=== PATIENT | female | born 1940 ===

== ENCOUNTER 2016-10-12 22:51 | Emergency (ER) | payer MEDICARE, MEDICAID ==
[2016-10-12 22:52] VITALS: BMI 29.2
--- NOTE | 2016-10-12 23:06 | C.PDOC ---
History Of Present Illness Patient presents to the ER with a complaint of sharp, stabbing, RUQ pain since yesterday that worsened after having dinner. Patient states the pain is associated with nausea, vomiting, and some diarrhea. Patient is able to tolerate PO; denies fever or chills. Time Seen by Provider: 10/12/16 23:05 Chief Complaint (Nursing): Abdominal Pain History Per: Patient History/Exam Limitations: no limitations Onset/Duration Of Symptoms: Days Current Symptoms Are (Timing): Still Present Severity: Moderate Pain Scale Rating Of: 4 Location Of Pain/Discomfort: RUQ Radiation Of Pain To:: None Quality Of Discomfort: Sharp, Stabbing Associated Symptoms: Nausea, Vomiting, Diarrhea. denies: Fever, Chills Exacerbating Factors: None Alleviating Factors: None Recent travel outside of the [place]: No Abnormal Vaginal Bleeding: No Past Medical History Reviewed: Historical Data, Nursing Documentation, Vital Signs Vital Signs: Last Vital Signs Temp 98.7 F 10/12/16 23:05 Pulse 74 10/13/16 00:12 Resp 18 10/13/16 00:12 BP 118/53 L 10/13/16 00:12 Pulse Ox 97 10/13/16 00:12 - Medical History PMH: Arthritis, Asthma ("DUE TO ALLERGIES"-"NOT HOSPITAIZED IN MANY YEARS"), Diabetes, Fractures (RIGHT HAND-CASTED ONLY), Gall Bladder Disease, Hypercholesterolemia, Kidney Stones (NO FURTHER WITH PAIN-PT. BELIEVES PASSED ON OWN), Pneumonia, Chronic Kidney Disease Surgical History: Endoscopy - [facility] Procedures FLUOROSCOPY OF GALLBLADDER & BILE DUCT USING L OSM CONTRAST (02/01/16) RESECTION OF GALLBLADDER, PERCUTANEOUS ENDOSCOPIC APPROACH (02/01/16) Family History: States: No Known Family Hx - Social History Hx Tobacco Use: No Hx Alcohol Use: No Hx Substance Use: No - Immunization History Hx Tetanus Toxoid Vaccination: No Hx Influenza Vaccination: No Hx Pneumococcal Vaccination: Yes Review Of Systems Constitutional: Negative for: Fever, Chills Gastrointestinal: Positive for: Nausea, Vomiting, Abdominal Pain, Diarrhea Physical Exam - Physical Exam Appears: Non-toxic Skin: Warm, Dry Oral Mucosa: Moist Chest: No Tenderness, Other (CABG scar) Cardiovascular: Rhythm Regular, No Murmur Respiratory: No Rales, No Rhonchi, No Wheezing Gastrointestinal/Abdominal: Soft, Tenderness (RUQ) Neurological/Psych: Oriented x3 ED Course And Treatment - Laboratory Results Result Diagrams: 10/12/16 23:27 08 23:27 ECG: Interpreted By Me, Viewed By Me ECG Rhythm: Sinus Rhythm (69), Nonspecific Changes O2 Sat by Pulse Oximetry: 97 Pulse Ox Interpretation: Normal Progress Note: CT abd/pel and EKG ordered. Pepcid administered. Reevaluation Time: 01:52 Reassessment Condition: Improved Medical Decision Making Medical Decision Making: Upon provider reevaluation patient is feeling better, is medically stable, and requires no further treatment in the ED at this time. Patient will be discharged home with Rx for miralax and simethicone. Counseling was provided and all questions were answered regarding diagnosis and need for follow up with dr capone. There is agreement to discharge plan. Return if symptoms persist or worsen. Disposition Counseled Patient/Family Regarding: Studies Performed, Diagnosis, Need For Followup, Rx Given - Disposition Referrals: Danny Capone MD [Staff Provider] - Disposition: HOME/ ROUTINE Disposition Time: 23:06 Condition: FAIR Additional Instructions: Please return if symptoms recur Prescriptions: Polyethylene Glycol 3350 [Miralax] 17 gm PO DAILY #270 ml Simethicone 180 mg PO TID PRN #20 capsule PRN Reason: gas and bloating Instructions: Abdominal Pain (ED), Gas and Bloating (ED), Diverticulosis (ED) Forms: [facility] (Slovak) - Clinical Impression Clinical Impression: Abdominal pain, Constipation, Diverticulosis - Scribe Statement The provider has reviewed the documentation as recorded by the Kwameibdeniz Novoa All medical record entries made by the Kwameibdeniz were at my direction and personally dictated by me. I have reviewed the chart and agree that the record accurately reflects my personal performance of the history, physical exam, medical decision making, and the department course for this patient. I have also personally directed, reviewed, and agree with the discharge instructions and disposition.
[2016-10-12 23:32] LABS: BASO # 0.1 K/uL (0.0-0.2); BASO % 0.8 % (0.0-2.0); EOS # 0.3 K/uL (0.0-0.7); EOS % 4.5 % (0.0-4.0); HEMOGLOBIN 12.4 g/dL (11.0-16.0); LYMPH % 26.6 % (20.0-40.0); MEAN CELL VOLUME 88.7 fL (81.0-99.0); MEAN CORPUSCULAR HEMOGLOBIN 28.7 pg (27.0-31.0); MEAN CORPUSCULAR HGB CONC 32.4 g/dL (33.0-37.0); MEAN PLATELET VOLUME 8.4 fL (7.2-11.7); MONO # 0.6 K/uL (0.0-0.8); MONO % 8.2 % (0.0-10.0); NEUT # 4.6 K/uL (1.8-7.0); NEUT % 59.9 % (50.0-75.0); NRBC % 0.1 % (0.0-2.0); RBC 4.3 Mil/uL (3.80-5.20); RED CELL DISTRIBUTION WIDTH 13.8 % (11.5-14.5); WHITE BLOOD COUNT 7.7 K/uL (4.8-10.8)
[2016-10-12 23:34] LABS: URINE BILIRUBIN NEGATIVE (NEGATIVE); URINE BLOOD NEGATIVE (NEGATIVE); URINE CLARITY Clear (Clear); URINE COLOR Colorless (YELLOW); URINE GLUCOSE (UA) NORMAL (Normal); URINE LEUKOCYTE ESTERASE NEG Leu/uL (Negative); URINE NITRATE NEGATIVE (NEGATIVE); URINE PROTEIN NEGATIVE (NEGATIVE); URINE UROBILINOGEN NORMAL mg/dL (0.2-1.0)
[2016-10-12 23:40] LABS: ALBUMIN 4.3 g/dL (3.5-5.0)
[2016-10-12 23:43] LABS: ALB/GLOB RATIO 1.2 (1.0-2.1); ALT/SGPT 41 U/L (9-52); AST/SGOT 48 U/L (14-36); BLOOD UREA NITROGEN 23 mg/dL (7-17); GFR AFRICAN-AMERICAN > 60; GFR NON-AFRICAN AMERICAN 54
[2016-10-12 23:44] LABS: CALCIUM 8.9 mg/dl (8.6-10.4); LIPASE 205 U/L (23-300)
[2016-10-12 23:55] VITALS: BP 118/53
[2016-10-13] LABS: INR 0.9; PROTHROMBIN TIME 10.2 SECONDS (9.7-12.2)
[2016-10-13] MEDS ORDERED: Iodixanol 320 MG/ML 100 ML BOTTLE IV ONE (00:02)
--- NOTE | 2016-10-13 01:36 | CT ---
EXAM: CT Abdomen and Pelvis With Intravenous Contrast CLINICAL HISTORY: 76 years old, female; Pain; Abdominal pain; Prior surgery; Surgery type: Open heart and valve replacement; Additional info: Ruq pain, HX of cholecystectomy TECHNIQUE: Axial computed tomography images of the abdomen and pelvis with intravenous contrast. This CT exam was performed using one or more of the following dose reduction techniques: automated exposure control, adjustment of the mA and/or kV according to patient size, and/or use of iterative reconstruction technique. Coronal and sagittal reformatted images were created and reviewed. CONTRAST: 100 mL of [id number] administered intravenously. COMPARISON: No relevant prior studies available. FINDINGS: Limitations: Motion artifact - mild to moderate. Lower thorax: Small hiatal hernia. Mild cardiomegaly. Valve replacement. Coronary artery calcifications. ABDOMEN: Liver: Unremarkable. No mass. Gallbladder and bile ducts: Cholecystectomy. No ductal dilation. Pancreas: No ductal dilation. No mass. Spleen: No splenomegaly. Adrenals: No mass. Kidneys and ureters: Atrophic RIGHT kidney. No hydronephrosis. Stomach and bowel: Scattered diverticula within colon. No associated inflammatory stranding. No definite mural thickening. No obstruction. Appendix: Normal caliber. No inflammation. PELVIS: Bladder: Unremarkable. Reproductive: Unremarkable as visualized. ABDOMEN and PELVIS: Intraperitoneal space: No significant fluid collection. No free air. Bones/joints: Median sternotomy. Degenerative changes and scoliosis of spine. No acute fracture. Soft tissues: Small umbilical hernia containing sidewall of bowel. No obstruction. Vasculature: Moderate atherosclerotic disease. No aneurysm. Lymph nodes: No pathologically enlarged lymph nodes. IMPRESSION: 1. Diverticulosis without definite CT evidence of diverticulitis. 2. Incidental/non-acute findings are described above.
[2016-10-13 02:02] VITALS: PULSE 73; RESP 20; TEMP 98.8; O2SAT 100
--- NOTE | 2016-10-13 10:55 | CARD ---
APPROVED REPORT EKG Measurement Heart [id number] MD [id number] <Conclusion> Normal sinus rhythm Nonspecific T wave abnormality Abnormal ECG
== END 2016-10-13 02:20 | disposition home or self-care (01) ==
LOC: C.ER 22:51
DX: K57.90 Diverticulosis of intestine, part unspecified, without perforation or abscess without bleeding (principal); K59.00 Constipation, unspecified
CPT/HCPCS: 74177; 80053; 81001; 83690; 85025; 85610; 85730; 93005; 96374; 99285; Q9967

== ENCOUNTER 2016-11-28 12:28 | Inpatient (IN) | payer MEDICARE, MEDICAID ==
[2016-11-28 12:29] VITALS: BMI 29.2
[2016-11-28 15:54] LABS: BASO % 0.3 % (0.0-2.0); EOS # 0.1 K/uL (0.0-0.7); EOS % 0.6 % (0.0-4.0); HEMATOCRIT 41.1 % (34.0-47.0); LYMPH # 1.9 K/uL (1.0-4.3); LYMPH % 16.7 % (20.0-40.0); MEAN CELL VOLUME 88.8 fL (81.0-99.0); MEAN CORPUSCULAR HEMOGLOBIN 29.2 pg (27.0-31.0); MEAN CORPUSCULAR HGB CONC 32.8 g/dL (33.0-37.0); MEAN PLATELET VOLUME 8.2 fL (7.2-11.7); MONO # 0.5 K/uL (0.0-0.8); MONO % 4.8 % (0.0-10.0); WHITE BLOOD COUNT 11.4 K/uL (4.8-10.8)
[2016-11-28 16:10] LABS: CHLORIDE 101 mmol/L (98-107); POTASSIUM 3.8 mmol/L (3.6-5.2); SODIUM 141 mmol/L (132-148)
[2016-11-28 16:12] LABS: ALB/GLOB RATIO 1.3 (1.0-2.1); ALKALINE PHOSPHATASE 79 U/L (38-126); AST/SGOT 44 U/L (14-36); BILIRUBIN,TOTAL 1.3 mg/dL (0.2-1.3); BLOOD UREA NITROGEN 17 mg/dL (7-17); CARBON DIOXIDE 27 mmol/L (22-30); GFR AFRICAN-AMERICAN > 60; RBC URINE < 1 /hpf (0-3); TOTAL PROTEIN 8.5 g/dL (6.3-8.3); URINE BACTERIA RARE (<OCC); URINE BILIRUBIN NEGATIVE (NEGATIVE); URINE BLOOD NEGATIVE (NEGATIVE); URINE COLOR Yellow (YELLOW); URINE GLUCOSE (UA) NORMAL (Normal); URINE KETONE TRACE mg/dL (NEGATIVE); URINE LEUKOCYTE ESTERASE NEG Leu/uL (Negative); URINE PROTEIN NEGATIVE (NEGATIVE); URINE UROBILINOGEN NORMAL mg/dL (0.2-1.0); WBC URINE < 1 /hpf (0-5)
[2016-11-28 16:13] LABS: ALT/SGPT 36 U/L (9-52); GLUCOSE,RANDOM 110 mg/dL (65-105)
[2016-11-28] MEDS ORDERED: Iodixanol 320 MG/ML 100 ML BOTTLE IV ONE (17:51)
--- NOTE | 2016-11-28 18:28 | C.PDOC ---
History Of Present Illness <Alexa Sanders - Last Filed: 11/28/16 19:12> <Tony Davis - Last Filed: 11/28/16 20:50> 76 y/o female presents to ED for evaluation of right sided abdominal pain associated with diarrhea since yesterday. (+)nausea, (+)vomiting. Pt notes having similar symptoms last month and was treated with Miralax. Pt notes that she continued taking the Miralax daily even day with the diarrhea. Otherwise, denies any back pain, urinary symptoms, fever, or chills. (Alexa Sanders) History Per: Patient History/Exam Limitations: no limitations Onset/Duration Of Symptoms: Days (1) Current Symptoms Are (Timing): Still Present Location Of Pain/Discomfort: Other (right sided) Radiation Of Pain To:: None Quality Of Discomfort: "Pain" Associated Symptoms: Nausea, Vomiting, Diarrhea. denies: Loss Of Appetite, Back Pain, Chest Pain, Constipation, Urinary Symptoms Exacerbating Factors: None Alleviating Factors: None Last Bowel Movement: Today Recent travel outside of the [place]: No Additional History Per: Patient Abnormal Vaginal Bleeding: No <Alexa Sanders - Last Filed: 11/28/16 19:12> <Tony Davis - Last Filed: 11/28/16 20:50> Time Seen by Provider: 11/28/16 15:12 Chief Complaint (Nursing): Abdominal Pain Past Medical History Reviewed: Historical Data, Nursing Documentation, Vital Signs - Medical History PMH: Arthritis, Asthma ("DUE TO ALLERGIES"-"NOT HOSPITAIZED IN MANY YEARS"), Diabetes, Fractures (RIGHT HAND-CASTED ONLY), Gall Bladder Disease, Hypercholesterolemia, Kidney Stones (NO FURTHER WITH PAIN-PT. BELIEVES PASSED ON OWN), Pneumonia, Chronic Kidney Disease Surgical History: Cholecystectomy, Endoscopy Family History: States: Unknown Family Hx - Social History Hx Tobacco Use: No Hx Alcohol Use: No Hx Substance Use: No - Immunization History Hx Tetanus Toxoid Vaccination: No Hx Influenza Vaccination: No Hx Pneumococcal Vaccination: Yes <Alexa Sanders - Last Filed: 11/28/16 19:12> Review Of Systems Except As Marked, All Systems Reviewed And Found Negative. Constitutional: Negative for: Fever, Chills Cardiovascular: Negative for: Chest Pain, Palpitations Respiratory: Negative for: Shortness of Breath Gastrointestinal: Positive for: Nausea, Vomiting, Abdominal Pain, Diarrhea. Negative for: Constipation, Melena, Hematochezia, Hematemesis Genitourinary: Negative for: Dysuria, Frequency, Incontinence, Hematuria Musculoskeletal: Negative for: Back Pain Skin: Negative for: Rash, Bruising <Alexa Sanders - Last Filed: 11/28/16 19:12> Physical Exam - Physical Exam Appears: Non-toxic, No Acute Distress Skin: Normal Color, Warm, Dry, No Rash Head: Atraumatic, Normacephalic Eye(s): bilateral: Normal Inspection, EOMI Nose: Normal Oral Mucosa: Moist Neck: Normal ROM, Supple Chest: Symmetrical Cardiovascular: Rhythm Regular, No Murmur Respiratory: Normal Breath Sounds, No Rales, No Rhonchi, No Wheezing Gastrointestinal/Abdominal: Soft, Tenderness (right sided tenderness), No Guarding, No Rebound Back: No CVA Tenderness Extremity: Normal ROM, No Pedal Edema Neurological/Psych: Oriented x3, Normal Speech <Alexa Sanders - Last Filed: 11/28/16 19:12> ED Course And Treatment - Laboratory Results Result Diagrams: 11/28/16 15:49 11/28/16 15:49 O2 Sat by Pulse Oximetry: 99 (on RA) Pulse Ox Interpretation: Normal Progress Note: Blood work, UA, Abd & pelvis CT ordered and reviewed. Pt was given Tramadol. Pt endorsed to Dr Davis pending CT results and re-evaluation. <Alexa Sanders - Last Filed: 11/28/16 19:12> - Laboratory Results Result Diagrams: 11/28/16 15:49 11/28/16 15:49 <Tony Davis - Last Filed: 11/28/16 20:50> Disposition - Disposition Disposition Time: 19:13 <Alexa Sanders - Last Filed: 11/28/16 19:12> Discussed With : Danny Banerjee Comment: accepted the pt on his service and took over the care at 8:50 PM <Tony Davis - Last Filed: 11/28/16 20:50> - Disposition Condition: FAIR Forms: [facility] (Belarusian) - Clinical Impression Clinical Impression: Abdominal pain, Ileus - PA / DE ALCHOLIZER / Resident Statement MD/DO has reviewed & agrees with the documentation as recorded. - Scribe Statement The provider has reviewed the documentation as recorded by the Scribe <Alexa Sanders - Last Filed: 11/28/16 19:12> <Tony Davis - Last Filed: 11/28/16 20:50> - Scribe Statement Carlota Brady All medical record entries made by the Scribe were at my direction and personally dictated by me. I have reviewed the chart and agree that the record accurately reflects my personal performance of the history, physical exam, medical decision making, and the department course for this patient. I have also personally directed, reviewed, and agree with the discharge instructions and disposition. (Alexa Sanders) Decision To Admit <Alexa Sanders - Last Filed: 11/28/16 19:12> - Pt Status Changed To: Hospital Disposition Of: Inpatient - Admit Certification Admit to Inpatient:: After my assessment, the patient will require hospitalization for at least two midnights. This is because of the severity of symptoms shown, intensity of services needed, and/or the medical risk in this patient being treated as an outpatient. - InPatient: Physician Admission Certification:: After my assessment, the patient will require hospitalization for at least two midnights. This is because of the severity of symptoms shown, intensity of services needed, and/or the medical risk in this patient being treated as an outpatient. - . Bed Request Type: Regular Admitting Physician: Danny Banerjee <Tony Davis - Last Filed: 11/28/16 20:50> - . Patient Diagnosis: Abdominal pain, Ileus
--- NOTE | 2016-11-28 20:21 | CT ---
EXAM: CT Abdomen and Pelvis With Intravenous Contrast EXAM DATE/TIME: 11/28/2016 4:03 PM CLINICAL HISTORY: 76 years old, female; Condition or disease; Intestinal condition; Other: Rectal bleed; Additional info: Pain TECHNIQUE: Axial computed tomography images of the abdomen and pelvis with intravenous contrast. All CT scans at this facility use one or more dose reduction techniques, viz.: automated exposure control; ma/kV adjustment per patient size (including targeted exams where dose is matched to indication; i.e. head); or iterative reconstruction technique. Coronal and sagittal reformatted images were created and reviewed. CONTRAST: 100 mL of visipaque 320 administered intravenously. COMPARISON: Prior images are not available for review. FINDINGS: Lower thorax: Heart size is normal. There are coronary artery calcifications There is a prosthetic aortic valve. There is fluid in the pericardial recesses. There is a hiatal hernia. ABDOMEN: Liver: unremarkable Gallbladder and bile ducts: Gallbladder is surgically absent. Common duct is prominent. There is mild intrahepatic biliary ductal dilatation Pancreas: Pancreas is mildly atrophic. Spleen: unremarkable Adrenals: There is adrenal thickening. Kidneys and ureters: Right kidney is atrophic, 5.7 cm in length. Left kidney is normal in size, 11.7 cm in length.There is no pelvocaliectasis or ureterectasis. Stomach and bowel: Stomach is incompletely distended. Rotation is normal. Small bowel is mildly distended with fluid and air. There is no obstruction. There is fluid throughout the small bowel. Terminal ileum is distended with fluid.Appendix is unremarkable. There is a cecal diverticulum. Colon is incompletely distended which limits evaluation. Streak limits evaluation of the colon. There is mild enhancement of the ascending colon wall. There is scattered hyperdense material in the distal transverse colon, descending colon and multiple diverticula. Appendix: See above. PELVIS: Bladder: unremarkable Reproductive: Uterus is atrophic. The adnexa are unremarkable. ABDOMEN and PELVIS: Intraperitoneal space: There is no free air or free fluid. Bones/joints: There are postsurgical changes of median sternotomy. Bony structures are osteopenic.There are degenerative changes in the osseus structures. There is a convex right lumbar scoliosis. Soft tissues: There is a nonobstructing umbilical hernia containing small bowel. Vasculature: Aorta is mildly tortuous. There is atherosclerotic calcification in the aorta. There are atherosclerotic calcifications at the origins of both renal arteries. Lymph nodes: There is no pathologic adenopathy. IMPRESSION: Ileus, no obstruction; scattered foci of hyperdense material in the colon, ingested material versus blood; possible ascending colon colitis; diverticulosis without CT findings of diverticulitis dilated ducts status post cholecystectomy; marked right renal atrophy; atherosclerotic disease Additional findings as described above.
[2016-11-28] MEDS ORDERED: metroNIDAZOLE IV 500 mg/100 ml 500 MG/100 ML BAG ONE (20:57)
[2016-11-28] MEDS: metroNIDAZOLE IV 500 mg/100 ml 500 MG/100 ML BAG IVPB SCH (20:59)
[2016-11-28] MEDS ORDERED: SIMETHICONE 180 MG PO PRN (21:02)
[2016-11-28] MEDS ORDERED: Albuterol-Ipratrop 3 mg / 0.5 (3 ml) UD INH PRN (21:12)
[2016-11-28] MEDS: Dextrose 5%/0.45% NS 1,000 ML IV SCH (21:33)
--- NOTE | 2016-11-29 00:02 | CP.PCM.CON ---
History of Present Illness - History of Present Illness History of Present Illness: General Surgery Consult note for Dr. Kelley Consulted for: abdominal pain, possible ileus Patient is a 76F with PMH including DM, aortic valve replacement, coronary bypass, and cholecystectomy who presents with abdominal pain associated with nausea and vomiting for 2 days. She began to have more severe symptoms on yesterday morning, with diffuse crampy abdominal pain that persisted throughout the day. This AM the pain was worse and increased throughout the day, and patient had an episode of nausea and NB/NB vomiting after trying to eat. Patient took miralax this AM. Last BM was yesterday afternoon with small amount stool after strauining, normal color and consistency. At time of interview, patient reports pain is persistent but improved with medication, and denies any naseua. Patient also denies diarrhea, melena, hematochezia, dysuria, hematuria, back pain, fevers, chills, or any other symptoms. Patient reports a chronic abdominal hernia that is soft, non-tender, and reducible. Patient states that her grandson, who lives with her, has similar symptoms. Patient states that she has had occasional episodes of abdominal pain in the morning for a long time. Patient presented to the hospital 3 weeks ago with RLQ pain and was diagnoses with diverticulosis and instructed to take miralax daily. CT scan revealed mildly dilated small bowel with distended, fluid filled terminal ileum, no sign of obstruction PMH: CAD, HLD, DM, nephrolithiasis, asthma PSH: cholecystectomy, aortic valve replacement, coronary arter bypass All: bactrim, asa, PCN Social: denies tobacco, alcohol, and illicit drugs Review of Systems - Review of Systems All systems: reviewed and no additional remarkable complaints except (as per HPI ) - Constitutional Constitutional: absent: Chills, Fever, Weight Loss - Cardiovascular Cardiovascular: absent: Chest Pain, Chest Pain at Rest, Dyspnea - Respiratory Respiratory: absent: Cough, Dyspnea, Dyspnea on Exertion - Gastrointestinal Gastrointestinal: As Per HPI - Genitourinary Genitourinary: As Per HPI - Musculoskeletal Musculoskeletal: Arthralgias, Back Pain, Numbness (BL hands). absent: Tingling - Neurological Neurological: Numbness (BL hands). absent: Tingling Past Patient History - Infectious Disease Hx of Infectious Diseases: None - Past Medical History & Family History Past Medical History?: Yes - Past Social History Smoking Status: Never Smoked Alcohol: None Drugs: Denies Home Situation {Lives}: With Family - CARDIAC Hx Cardiac Disorders: Yes Hx Hypercholesterolemia: Yes Hx Hypertension: No Other/Comment: CAD, aortic valve replacement, CABG - PULMONARY Hx Asthma: Yes ("DUE TO ALLERGIES"-"NOT HOSPITAIZED IN MANY YEARS") Hx Pneumonia: Yes - NEUROLOGICAL Hx Neurological Disorder: Yes Hx Dizziness: Yes - HEENT Hx HEENT Problems: Yes Hx Cataracts: Yes Other/Comment: WEAR EYEGLASSES FOR POOR VISION - RENAL Hx Chronic Kidney Disease: Yes Hx Kidney Stones: Yes - ENDOCRINE/METABOLIC Hx Endocrine Disorders: Yes Hx Diabetes Mellitus Type 2: Yes - INTEGUMENTARY Hx Dermatological Problems: No - MUSCULOSKELETAL/RHEUMATOLOGICAL Hx Arthritis: Yes Hx Back Pain: Yes Hx Fractures: Yes (RIGHT HAND-CASTED ONLY) Hx Osteoarthritis: Yes - GASTROINTESTINAL Hx Gall Bladder Disease: Yes Other/Comment: diverticulosis - GENITOURINARY/GYNECOLOGICAL Hx Genitourinary Disorders: No - PSYCHIATRIC Hx Substance Use: No - SURGICAL HISTORY Hx Surgeries: Yes Hx Cholecystectomy: Yes Other/Comment: CABG, aortic valve replacement, arthroscopy right knee - ANESTHESIA Hx Anesthesia: Yes Hx Anesthesia Reactions: No Hx Malignant Hyperthermia: No Meds Allergies/Adverse Reactions: Allergies Allergy/AdvReac Type Severity Reaction Status Date / Time Penicillins Allergy Severe ANAPHYLAXIS Verified 11/28/16 12:49 aspirin Allergy Intermediate ITCHING Verified 11/28/16 12:49 sulfamethoxazole Allergy Intermediate RASH Verified 11/28/16 12:49 [From Bactrim] trimethoprim [From Bactrim] Allergy Intermediate RASH Verified 11/28/16 12:49 - Medications Medications: Current Medications Albuterol/Ipratropium (Duoneb 3 Mg/0.5 Mg (3 Ml) Ud) 3 ml INH RQ6 PRN PRN Reason: Shortness of Breath Enoxaparin Sodium (Lovenox) 40 mg SC DAILY [facility] Folic Acid (Folic Acid) 1 mg PO DAILY [facility] Home Med (Cholecalciferol (Vitamin D3) [Vitamin D3]) 50,000 unit PO QWK [facility] Home Med (Levocetirizine Dihydrochloride [Levocetirizine Dihydrochloride]) 5 mg PO DAILY [facility] Home Med (Simethicone [Simethicone]) 180 mg PO TID PRN PRN Reason: gas and bloating Metronidazole (Flagyl) 500 mg in 100 mls @ 100 mls/hr IVPB STAT [facility] Last Admin: 11/28/16 20:59 Dose: 100 mls/hr Metronidazole (Flagyl) 500 mg in 100 mls @ 100 mls/hr IVPB Q8 [facility] Dextrose/Sodium Chloride (Dextrose 5%/0.45% Ns 1000 Ml) 1,000 mls @ 60 mls/hr IV .[id number] [facility] Last Admin: 11/28/16 21:33 Dose: 60 mls/hr Meclizine HCl (Antivert) 12.5 mg PO DAILY [facility] Metoclopramide HCl (Reglan) 10 mg IVP Q6 PRN PRN Reason: Nausea/Vomiting Sitagliptin Phosphate (Januvia) 100 mg PO DAILY [facility] Physical Exam - Constitutional Appears: Non-toxic, No Acute Distress - Head Exam Head Exam: ATRAUMATIC, NORMOCEPHALIC - Eye Exam Eye Exam: Normal appearance. absent: Conjunctival injection, Scleral icterus - ENT Exam ENT Exam: Mucous Membranes Moist, Normal Oropharynx - Respiratory Exam Respiratory Exam: NORMAL BREATHING PATTERN. absent: Accessory Muscle Use, Respiratory Distress - Cardiovascular Exam Cardiovascular Exam: RRR - GI/Abdominal Exam GI & Abdominal Exam: Distended (mild), Hernia (ventral hernia, reducible, non- tender), Soft, Tenderness (LLQ and RUQ). absent: Firm, Rebound - Extremities Exam Extremities exam: Positive for: pedal pulses present. Negative for: calf tenderness, pedal edema - Back Exam Back exam: NORMAL INSPECTION. absent: CVA tenderness (L), CVA tenderness (R) - Neurological Exam Neurological exam: Alert, Oriented x3 - Psychiatric Exam Psychiatric exam: Normal Affect, Normal Mood - Skin Skin Exam: Dry, Intact, Normal Color, Warm Results - Vital Signs Recent Vital Signs: Last Vital Signs Temp 97.8 F 11/28/16 22:52 Pulse 63 11/28/16 22:52 Resp 18 11/28/16 22:52 BP 155/75 H 11/28/16 22:52 Pulse Ox 98 11/28/16 22:52 - Labs Result Diagrams: 11/28/16 15:49 11/28/16 15:49 Assessment & Plan - Assessment and Plan (Free Text) Assessment: 76F with diffuse abdominal pain, possible ileus possible gastroenteritis Plan: - No indication for surgical intervention at this time - NPO - IVF - IV abx - NGT is not indicated at this time due to resolution of nausea and vomiting and benign abdominal exam. Insert NGT if nausea and vomiting return - Serial abdominal exam - PRN nausea and pain medication Thank you for this consult Further recs per Dr. Warren Be, PGY2
[2016-11-29] MEDS: metroNIDAZOLE IV 500 mg/100 ml 500 MG/100 ML BAG IVPB SCH ×3 (05:00→21:46)
[2016-11-29] MEDS ORDERED: Simethicone 80 mg Chewtab PO PRN (07:59)
[2016-11-29] MEDS ORDERED: Home Med 1 UNIT (Levocetirizine Dihydrochloride [Levocetirizine Dihydrochloride] 5 MG) PO SCH (10:00)
[2016-11-29] MEDS ORDERED: Home Med 1 UNIT (Polyethylene Glycol 3350 [Miralax] 17 GM) PO SCH (10:00)
[2016-11-29] MEDS ORDERED: Aluminum Hydroxide/Magnesium Hydroxide Susp (30 mL) PO ONE ×2 (10:06→11:42)
[2016-11-29] MEDS: Enoxaparin 40 mg Syringe SC SCH (10:37)
[2016-11-29 12:29] LABS: BASO % 0.5 % (0.0-2.0); EOS # 0.1 K/uL (0.0-0.7); EOS % 1.9 % (0.0-4.0); HEMATOCRIT 40.5 % (34.0-47.0); LYMPH % 29.5 % (20.0-40.0); MEAN CELL VOLUME 89.1 fL (81.0-99.0); MEAN CORPUSCULAR HEMOGLOBIN 29.6 pg (27.0-31.0); MEAN CORPUSCULAR HGB CONC 33.2 g/dL (33.0-37.0); MEAN PLATELET VOLUME 8.4 fL (7.2-11.7); MONO # 0.5 K/uL (0.0-0.8); MONO % 7.8 % (0.0-10.0); RED CELL DISTRIBUTION WIDTH 14.3 % (11.5-14.5); WHITE BLOOD COUNT 6.9 K/uL (4.8-10.8)
[2016-11-29 12:43] LABS: POTASSIUM 4.3 mmol/L (3.6-5.2)
[2016-11-29 13:18] LABS: CARCINOEMBRYONIC ANTIGEN 2.6 ng/mL (0-3.0)
[2016-11-29 13:21] LABS: CA 19-9 20.8 U/mL (0-37)
[2016-11-29] MEDS: Dextrose 5%/0.45% NS 1,000 ML IV SCH (13:47)
[2016-11-29] MEDS: Belladonna-Phenobarbital PO SCH ×2 (13:47→17:54)
--- NOTE | 2016-11-29 22:35 | CP.PCM.HP ---
History of Present Illness - History of Present Illness History of Present Illness: 76 year old female reports to [facility] ER with severe abdomenal pain for the past 10 hours.Patient isunder treatment for coronary artery disease and valvular insufficiency. She also suffers from bronical asthma and degenerative joint disease. Present on Admission - Present on Admission Any Indicators Present on Admission: No History of DVT/PE: No History of Uncontrolled Diabetes: No Urinary Catheter: No Decubitus Ulcer Present: No History Surgical Site Infection Following: None Review of Systems - Constitutional Constitutional: Weakness - EENT Eyes: Itchy Eyes Ears: Dizziness Nose/Mouth/Throat: Sinus Pain - Cardiovascular Cardiovascular: Dyspnea on Exertion - Respiratory Respiratory: Wheezing - Gastrointestinal Gastrointestinal: Constipation - Genitourinary Genitourinary: Urinary Frequency - Reproductive: Female Reproductive:Female: Post Menopausal - Musculoskeletal Musculoskeletal: Arthralgias - Integumentary Integumentary: Dry Skin Past Patient History - Infectious Disease Hx of Infectious Diseases: None - Tetanus Immunizations Tetanus Immunization: Up to Date - Past Medical History & Family History Past Medical History?: Yes - Past Social History Smoking Status: Unknown If Ever Smoked Chewing Tobacco Use: No Cigar Use: No Alcohol: None Drugs: Denies Home Situation {Lives}: Alone - CARDIAC Hx Cardiac Disorders: Yes Hx Hypercholesterolemia: Yes - PULMONARY Hx Respiratory Disorders: Yes Hx Asthma: Yes ("DUE TO ALLERGIES"-"NOT HOSPITAIZED IN MANY YEARS") Hx Pneumonia: Yes - NEUROLOGICAL Hx Neurological Disorder: Yes Hx Dizziness: Yes - HEENT Hx HEENT Problems: Yes Hx Cataracts: Yes Other/Comment: WEAR EYEGLASSES FOR POOR VISION - RENAL Hx Chronic Kidney Disease: Yes Hx Kidney Stones: Yes - ENDOCRINE/METABOLIC Hx Diabetes Mellitus Type 2: Yes - HEMATOLOGICAL/ONCOLOGICAL Hx Blood Disorders: No - INTEGUMENTARY Hx Dermatological Problems: No - MUSCULOSKELETAL/RHEUMATOLOGICAL Hx Arthritis: Yes (BACK ; R HAND FX) - GASTROINTESTINAL Hx Gastrointestinal Disorders: Yes Hx Gall Bladder Disease: Yes Other/Comment: diverticulosis - GENITOURINARY/GYNECOLOGICAL Hx Genitourinary Disorders: No - PSYCHIATRIC Hx Psychophysiologic Disorder: No Hx Substance Use: No - SURGICAL HISTORY Hx Surgeries: Yes Hx Cholecystectomy: Yes Other/Comment: CABG, aortic valve replacement, arthroscopy right knee - ANESTHESIA Hx Anesthesia: Yes Hx Anesthesia Reactions: No Hx Malignant Hyperthermia: No Meds Allergies/Adverse Reactions: Allergies Allergy/AdvReac Type Severity Reaction Status Date / Time Penicillins Allergy Severe ANAPHYLAXIS Verified 11/28/16 12:49 aspirin Allergy Intermediate ITCHING Verified 11/28/16 12:49 sulfamethoxazole Allergy Intermediate RASH Verified 11/28/16 12:49 [From Bactrim] trimethoprim [From Bactrim] Allergy Intermediate RASH Verified 11/28/16 12:49 Physical Exam - Constitutional Appears: No Acute Distress - Head Exam Head Exam: NORMAL INSPECTION - Eye Exam Eye Exam: Normal appearance Pupil Exam: NORMAL ACCOMODATION - ENT Exam ENT Exam: Normal Exam - Neck Exam Neck exam: Positive for: Normal Inspection - Cardiovascular Exam Cardiovascular Exam: Systolic Murmur - GI/Abdominal Exam GI & Abdominal Exam: Hyperactive Bowel Sounds - Rectal Exam Rectal Exam: Deferred - Exam External exam: NORMAL EXTERNAL EXAM - Extremities Exam Extremities exam: Positive for: normal inspection - Back Exam Back exam: NORMAL INSPECTION - Psychiatric Exam Psychiatric exam: Normal Affect Results - Vital Signs Recent Vital Signs: Last Vital Signs Temp 98.4 F 11/29/16 15:00 Pulse 65 11/29/16 15:00 Resp 20 11/29/16 15:00 BP 176/69 H 11/29/16 15:00 Pulse Ox 97 11/29/16 15:00 - Labs Result Diagrams: 11/29/16 12:17 11/29/16 12:17 Labs: Laboratory Results - last 24 hr 11/29/16 11/29/16 11/29/16 07:53 11:15 12:17 WBC 6.9 RBC 4.54 Hgb 13.4 Hct 40.5 MCV 89.1 MCH 29.6 MCHC 33.2 RDW 14.3 Plt Count 208 MPV 8.4 Neut % (Auto) 60.3 Lymph % (Auto) 29.5 Crook % (Auto) 7.8 Eos % (Auto) 1.9 Baso % (Auto) 0.5 Neut # 4.1 Lymph # 2.0 Crook # 0.5 Eos # 0.1 Baso # 0.0 PT INR APTT Sodium Potassium Chloride Carbon Dioxide BUN POC Glucose (mg/dL) 97 206 H Triglycerides Cholesterol LDL Cholesterol Direct HDL Cholesterol Amylase Carcinoembryonic Ag CA 19-9 Antigen CA 125 Antigen 11/29/16 11/29/16 11/29/16 12:17 12:17 17:01 WBC RBC Hgb Hct MCV MCH MCHC RDW Plt Count MPV Neut % (Auto) Lymph % (Auto) Crook % (Auto) Eos % (Auto) Baso % (Auto) Neut # Lymph # Crook # Eos # Baso # PT 11.7 INR 1.0 APTT 35 H Sodium 137 Potassium 4.3 Chloride 100 Carbon Dioxide 27 BUN 13 POC Glucose (mg/dL) 89 Triglycerides 43 D Cholesterol 115 LDL Cholesterol Direct 47 HDL Cholesterol 57 Amylase 104 Carcinoembryonic Ag 2.6 CA 19-9 Antigen 20.8 CA 125 Antigen 7.2 11/29/16 21:26 WBC RBC Hgb Hct MCV MCH MCHC RDW Plt Count MPV Neut % (Auto) Lymph % (Auto) Crook % (Auto) Eos % (Auto) Baso % (Auto) Neut # Lymph # Crook # Eos # Baso # PT INR APTT Sodium Potassium Chloride Carbon Dioxide BUN POC Glucose (mg/dL) 115 H Triglycerides Cholesterol LDL Cholesterol Direct HDL Cholesterol Amylase Carcinoembryonic Ag CA 19-9 Antigen CA 125 Antigen Assessment & Plan (1) Abdominal pain Status: Acute (2) Ileus Status: Acute (3) Arteriosclerotic heart disease Status: Acute Priority: Medium (4) Asthma with bronchitis Status: Acute Priority: Low (5) Constipation Status: Acute (6) Degenerative joint disease Status: Acute Priority: Medium (7) Diverticulosis Status: Acute
[2016-11-30] MEDS: metroNIDAZOLE IV 500 mg/100 ml 500 MG/100 ML BAG IVPB SCH ×4 (05:47→20:57)
[2016-11-30] MEDS: Dextrose 5%/0.45% NS 1,000 ML IV SCH (08:02)
[2016-11-30] MEDS: Enoxaparin 40 mg Syringe SC SCH (10:25)
[2016-11-30] MEDS: Belladonna-Phenobarbital PO SCH ×3 (10:25→17:18)
[2016-11-30] MEDS ORDERED: Propofol 10 mg/ml Inj (20 ML) ONE (13:07)
[2016-11-30] MEDS ORDERED: Lidocaine Hydrochloride 5 ML INJ ONE (13:16)
[2016-11-30] MEDS: Lactated Ringer's 500 ML IV SCH ×2 (14:38→20:58)
[2016-11-30] MEDS ORDERED: Peg-Electrolyte Oral Soln 4L (Golytely) PO ONE (14:45)
[2016-11-30] MEDS ORDERED: Bisacodyl 5mg EC Tab PO ONE (17:00)
--- NOTE | 2016-11-30 22:45 | CP.PCM.PN ---
Subjective - Date & Time of Evaluation Date of Evaluation: 11/30/16 Time of Evaluation: 13:20 - Subjective Subjective: Patient denies any increae pain. She underwent endoscopy by Dr Townsend. Complete report pending. Objective - Vital Signs/Intake and Output Vital Signs (last 24 hours): Temp Pulse Resp BP Pulse Ox 98 F 88 20 134/92 H 97 11/30/16 16:00 11/30/16 16:00 11/30/16 16:00 11/30/16 16:00 11/30/16 16:00 Intake and Output: 11/30/16 12/01/16 18:59 06:59 Intake Total 260 Balance 260 - Medications Medications: Current Medications Albuterol/Ipratropium (Duoneb 3 Mg/0.5 Mg (3 Ml) Ud) 3 ml INH RQ6 PRN PRN Reason: Shortness of Breath Last Admin: 11/30/16 00:32 Dose: 3 ml Belladonna/Phenobarbital () 1 tab PO TID [facility] Last Admin: 11/30/16 17:18 Dose: 1 tab Enoxaparin Sodium (Lovenox) 40 mg SC DAILY [facility] Last Admin: 11/30/16 10:25 Dose: Not Given Ergocalciferol (Drisdol 50,000 Intl Units Cap) 1 cap PO QWK [facility] Famotidine (Pepcid) 20 mg IVP DAILY [facility] Last Admin: 11/30/16 10:32 Dose: 20 mg Folic Acid (Folic Acid) 1 mg PO DAILY [facility] Last Admin: 11/30/16 10:25 Dose: Not Given Metronidazole (Flagyl) 500 mg in 100 mls @ 100 mls/hr IVPB Q8H [facility] Last Admin: 11/30/16 20:57 Dose: 100 mls/hr Lactated Ringer's (Lactated Ringer's 500ml) 500 mls @ 75 mls/hr IV .Q6H40M [facility] Last Admin: 11/30/16 20:58 Dose: 75 mls/hr Loratadine (Claritin) 10 mg PO DAILY [facility] Last Admin: 11/30/16 10:25 Dose: Not Given Meclizine HCl (Antivert) 12.5 mg PO DAILY [facility] Last Admin: 11/30/16 14:26 Dose: 12.5 mg Metoclopramide HCl (Reglan) 10 mg IVP Q6 PRN PRN Reason: Nausea/Vomiting Simethicone (Mylicon Chew Tab) 80 mg PO TID PRN PRN Reason: gas and bloating Sitagliptin Phosphate (Januvia) 50 mg PO DAILY [facility] Last Admin: 11/30/16 10:25 Dose: Not Given - Labs Labs: 11/29/16 12:17 11/29/16 12:17 PT 11.7 SECONDS (9.7-12.2) 11/29/16 12:17 INR 1.0 11/29/16 12:17 APTT 35 SECONDS (21-34) H 11/29/16 12:17 - Constitutional Appears: No Acute Distress - Head Exam Head Exam: NORMAL INSPECTION - Eye Exam Eye Exam: Normal appearance Pupil Exam: NORMAL ACCOMODATION - ENT Exam ENT Exam: Normal Exam - Neck Exam Neck Exam: Normal Inspection - Respiratory Exam Respiratory Exam: Wheezes - Cardiovascular Exam Cardiovascular Exam: Murmur - GI/Abdominal Exam GI & Abdominal Exam: Hyperactive Bowel Sounds - Rectal Exam Rectal Exam: Deferred - Exam External exam: NORMAL EXTERNAL EXAM - Extremities Exam Extremities Exam: Joint Swelling - Back Exam Back Exam: NORMAL INSPECTION - Neurological Exam Neurological Exam: Oriented x3 - Psychiatric Exam Psychiatric exam: Depressed Assessment and Plan (1) Abdominal pain Status: Acute (2) Ileus Status: Acute (3) Arteriosclerotic heart disease Status: Acute (4) Asthma with bronchitis Status: Acute (5) Constipation Status: Acute (6) Degenerative joint disease Status: Acute (7) Diverticulosis Status: Acute
--- NOTE | 2016-11-30 23:39 | CON ---
DATE: 11/29/[address] Banerjee. I was called for GI consultation by the admitting medical team. The patient is seen and fully examined for GI consultation on 11/29/2016 as requested by the medical staff. The entire chart is reviewed including but not limited to the most recent lab and radiology study results, current and previous medication list, current and previous medical events, allergy to medication list as well as also available current and previous medical records. HISTORY OF PRESENT ILLNESS: This is a 76 years old female, was admitted to the hospital due to right-sided abdominal pain with mid epigastric pain and diarrhea with recurrent episodes of nausea and vomiting with persistent dyspepsia, but no active bleeding. denied any recent episodes of chest pain, palpitations, active bleeding, chills, or fever or complaint of significant shortness of breath. PAST MEDICAL HISTORY: Including but not limited to; bronchial asthma, diabetes mellitus, hyperlipidemia with renal stone as well as pneumonia, osteoarthritis as well as status post cholecystectomy. SOCIAL HISTORY: No known recent history of cigarette smoking or alcohol intake. FAMILY HISTORY: Noncontributory. CURRENT MEDICATIONS: Medication lists were reviewed. ALLERGIES TO MEDICATIONS: UNCLEAR. After being admitted to the hospital, the patient was found to have leukocytosis of 11.4 with increased blood glucose level of 110. Radiology study results at the current admission are indicative of positive left-sided diverticulosis versus acute colitis without evidence of diverticulitis radiologically. PHYSICAL EXAMINATION: GENERAL: A 76 years old female awake, alert, and oriented. Complaining of dyspepsia with nausea and had episodes of vomiting with diarrhea. VITAL SIGNS: The patient appears to be afebrile at the time she was seen by me with pulse of 78, respiratory rate 20 to 24. HEART: Positive S1 and S2. ABDOMEN: Soft with generalized tenderness and mild distention. No masses or organomegaly. No rebound tenderness or guarding. Bowel sounds are hyperactive. RECTAL: The patient refused. EXTREMITIES: Slight lower extremity edematous changes. No clubbing or cyanosis. NEUROLOGICAL: No neurological deficits, sensory or motor. IMPRESSION: 1. Re-exacerbation of peptic ulcer disease, to rule out gastric versus duodenal ulcers. 2. Rule out possible diabetic gastroparesis with episodes of nausea and vomiting. 3. Diarrhea, infectious versus mechanical, to rule out lower gastrointestinal tract occult malignancy. 4. Known history of, but not limited to diabetes mellitus, osteoarthritis. 5. Known history of hypertension, hyperlipidemia, renal stone. She also had pneumonia in the past. 6. Status post cholecystectomy and endoscopy years ago, according to the records. SUGGESTIONS: 1. Agree with your plan. 2. Proton-pump inhibitors. 3. Flagyl IV. 4. Antireflux measure. 5. Endoscopic evaluation of the GI tract to be kept in line. 6. Cancer markers. 7. I just . 8. Further recommendation to follow and Reglan IV to be kept in mind. Thank you for letting me participate in your patient's case management. We will follow up closely with you. Pat Mcintyre MD cc: Pat Mcintyre MD
[2016-12-01] MEDS: Lactated Ringer's 500 ML IV SCH ×2 (04:00→09:58)
[2016-12-01] MEDS: metroNIDAZOLE IV 500 mg/100 ml 500 MG/100 ML BAG IVPB SCH ×2 (04:34→14:46)
--- NOTE | 2016-12-01 08:19 | CP.PCM.CON ---
History of Present Illness - History of Present Illness History of Present Illness: 76 yo lady hospitalized on 11/28/2016 for abdominal pain. A CT scan of the abdomen revealed ileus and no sign of intestinal obstruction. She underwent an EGD yesterday which revealed an acute gastritis. A colonoscopy is scheduled for today. Known to have an osteoathritis, a bronchial asthma, a NIDDM, a CAD, a HPTN, she denies any recent chest pain, SOB, palpitation. She underwent an AVR and CAGBx1 at [facility] by [place] Jacinto and is followed regularly by her wet process technician, Dr Roberts. An ECG done on 10/12/2016 was normal. Review of Systems - Gastrointestinal Gastrointestinal: Abdominal Pain, Cramping Past Patient History - Infectious Disease Hx of Infectious Diseases: None - Tetanus Immunizations Tetanus Immunization: Up to Date - Past Medical History & Family History Past Medical History?: Yes - Past Social History Smoking Status: Unknown If Ever Smoked Chewing Tobacco Use: No Cigar Use: No Alcohol: None Drugs: Denies Home Situation {Lives}: Alone - CARDIAC Hx Cardiac Disorders: Yes Hx Hypercholesterolemia: Yes - PULMONARY Hx Respiratory Disorders: Yes Hx Asthma: Yes ("DUE TO ALLERGIES"-"NOT HOSPITAIZED IN MANY YEARS") Hx Pneumonia: Yes - NEUROLOGICAL Hx Neurological Disorder: Yes Hx Dizziness: Yes - HEENT Hx HEENT Problems: Yes Hx Cataracts: Yes Other/Comment: WEAR EYEGLASSES FOR POOR VISION - RENAL Hx Chronic Kidney Disease: Yes Hx Kidney Stones: Yes - ENDOCRINE/METABOLIC Hx Diabetes Mellitus Type 2: Yes - HEMATOLOGICAL/ONCOLOGICAL Hx Blood Disorders: No - INTEGUMENTARY Hx Dermatological Problems: No - MUSCULOSKELETAL/RHEUMATOLOGICAL Hx Arthritis: Yes (BACK ; R HAND FX) - GASTROINTESTINAL Hx Gastrointestinal Disorders: Yes Hx Gall Bladder Disease: Yes Other/Comment: diverticulosis - GENITOURINARY/GYNECOLOGICAL Hx Genitourinary Disorders: No - PSYCHIATRIC Hx Psychophysiologic Disorder: No Hx Substance Use: No - SURGICAL HISTORY Hx Surgeries: Yes Hx Cholecystectomy: Yes Other/Comment: CABG, aortic valve replacement, arthroscopy right knee - ANESTHESIA Hx Anesthesia: Yes Hx Anesthesia Reactions: No Hx Malignant Hyperthermia: No Meds Allergies/Adverse Reactions: Allergies Allergy/AdvReac Type Severity Reaction Status Date / Time Penicillins Allergy Severe ANAPHYLAXIS Verified 11/28/16 12:49 aspirin Allergy Intermediate ITCHING Verified 11/28/16 12:49 sulfamethoxazole Allergy Intermediate RASH Verified 11/28/16 12:49 [From Bactrim] trimethoprim [From Bactrim] Allergy Intermediate RASH Verified 11/28/16 12:49 - Medications Medications: Current Medications Albuterol/Ipratropium (Duoneb 3 Mg/0.5 Mg (3 Ml) Ud) 3 ml INH RQ6 PRN PRN Reason: Shortness of Breath Last Admin: 11/30/16 00:32 Dose: 3 ml Belladonna/Phenobarbital () 1 tab PO TID [facility] Last Admin: 11/30/16 17:18 Dose: 1 tab Enoxaparin Sodium (Lovenox) 40 mg SC DAILY [facility] Last Admin: 11/30/16 10:25 Dose: Not Given Ergocalciferol (Drisdol 50,000 Intl Units Cap) 1 cap PO QWK [facility] Famotidine (Pepcid) 20 mg IVP DAILY [facility] Last Admin: 11/30/16 10:32 Dose: 20 mg Folic Acid (Folic Acid) 1 mg PO DAILY [facility] Last Admin: 11/30/16 10:25 Dose: Not Given Metronidazole (Flagyl) 500 mg in 100 mls @ 100 mls/hr IVPB Q8H [facility] Last Admin: 12/01/16 04:34 Dose: 100 mls/hr Lactated Ringer's (Lactated Ringer's 500ml) 500 mls @ 75 mls/hr IV .Q6H40M [facility] Last Admin: 12/01/16 04:00 Dose: Not Given Loratadine (Claritin) 10 mg PO DAILY [facility] Last Admin: 11/30/16 10:25 Dose: Not Given Meclizine HCl (Antivert) 12.5 mg PO DAILY [facility] Last Admin: 11/30/16 14:26 Dose: 12.5 mg Metoclopramide HCl (Reglan) 10 mg IVP Q6 PRN PRN Reason: Nausea/Vomiting Simethicone (Mylicon Chew Tab) 80 mg PO TID PRN PRN Reason: gas and bloating Sitagliptin Phosphate (Januvia) 50 mg PO DAILY [facility] Last Admin: 11/30/16 10:25 Dose: Not Given Physical Exam - Constitutional Appears: Well, No Acute Distress - Head Exam Head Exam: NORMAL INSPECTION - Eye Exam Eye Exam: Normal appearance Pupil Exam: NORMAL ACCOMODATION - ENT Exam ENT Exam: Normal Exam - Neck Exam Neck exam: Positive for: Normal Inspection - Respiratory Exam Respiratory Exam: Clear to Auscultation Bilateral - Cardiovascular Exam Cardiovascular Exam: REGULAR RHYTHM, Systolic Murmur - GI/Abdominal Exam GI & Abdominal Exam: Normal Bowel Sounds, Soft - Rectal Exam Rectal Exam: Deferred - Extremities Exam Extremities exam: Positive for: normal inspection - Back Exam Back exam: NORMAL INSPECTION - Neurological Exam Neurological exam: Alert, Normal Gait, Oriented x3 - Psychiatric Exam Psychiatric exam: Anxious - Skin Skin Exam: Dry, Intact, Normal Color, Warm Results - Vital Signs Recent Vital Signs: Last Vital Signs Temp 98.1 F 12/01/16 00:00 Pulse 63 12/01/16 00:00 Resp 20 12/01/16 00:00 BP 115/58 L 12/01/16 00:00 Pulse Ox 97 12/01/16 00:00 - Labs Result Diagrams: 11/29/16 12:17 11/29/16 12:17 Labs: Laboratory Results - last 24 hr 11/30/16 11/30/16 11/30/16 11:30 16:14 21:29 POC Glucose (mg/dL) 101 132 H 105 12/01/16 07:11 POC Glucose (mg/dL) 72 Assessment & Plan (1) Abdominal pain Assessment and Plan: As per Dr Townsend. Status: Resolved (2) Coronary artery disease Assessment and Plan: Stable. Status: Chronic (3) Bronchial asthma Assessment and Plan: Stable Status: Inactive (4) Non-insulin dependent type 2 diabetes mellitus Assessment and Plan: Stable. Status: Chronic (5) Hypertension Assessment and Plan: To continue same meds. Status: Chronic
[2016-12-01] MEDS: Belladonna-Phenobarbital PO SCH ×2 (09:58→14:45)
[2016-12-01] MEDS: Enoxaparin 40 mg Syringe SC SCH (09:59)
[2016-12-01] MEDS ORDERED: Lactated Ringer's 1,000 ML IV ONE (11:15)
[2016-12-01] MEDS ORDERED: Propofol 10 mg/ml Inj (20 ML) ONE (11:21)
[2016-12-01] MEDS ORDERED: Lidocaine Hydrochloride 5 ML INJ ONE (11:21)
[2016-12-01 11:50] VITALS: O2SAT 100
[2016-12-01] MEDS ORDERED: Belladonna-Phenobarbital PO ONE (12:00)
[2016-12-01 12:39] VITALS: BP 158/58; PULSE 71; RESP 14; TEMP 97.2
--- NOTE | 2016-12-01 17:00 | CP.PCM.PN ---
Subjective - Date & Time of Evaluation Date of Evaluation: 12/01/16 Time of Evaluation: 16:59 - Subjective Subjective: Alert, awake, no abdominal pain, no distress. Objective - Vital Signs/Intake and Output Vital Signs (last 24 hours): Temp Pulse Resp BP Pulse Ox 97.2 F L 71 14 158/58 H 100 12/01/16 12:07 12/01/16 12:07 12/01/16 12:07 12/01/16 12:07 12/01/16 12:07 Intake and Output: 12/01/16 12/01/16 06:59 18:59 Intake Total 750 Balance 750 - Medications Medications: Current Medications Albuterol/Ipratropium (Duoneb 3 Mg/0.5 Mg (3 Ml) Ud) 3 ml INH RQ6 PRN PRN Reason: Shortness of Breath Last Admin: 11/30/16 00:32 Dose: 3 ml Belladonna/Phenobarbital () 1 tab PO TID [facility] Last Admin: 12/01/16 14:45 Dose: Not Given Dicyclomine HCl (Bentyl) 10 mg PO TID [facility] Last Admin: 12/01/16 14:44 Dose: 10 mg Enoxaparin Sodium (Lovenox) 40 mg SC DAILY [facility] Last Admin: 12/01/16 09:59 Dose: Not Given Ergocalciferol (Drisdol 50,000 Intl Units Cap) 1 cap PO QWK [facility] Famotidine (Pepcid) 20 mg IVP DAILY [facility] Last Admin: 12/01/16 10:00 Dose: 20 mg Folic Acid (Folic Acid) 1 mg PO DAILY [facility] Last Admin: 12/01/16 14:44 Dose: 1 mg Metronidazole (Flagyl) 500 mg in 100 mls @ 100 mls/hr IVPB Q8H [facility] Last Admin: 12/01/16 14:46 Dose: Not Given Lactated Ringer's (Lactated Ringer's 500ml) 500 mls @ 75 mls/hr IV .Q6H40M [facility] Last Admin: 12/01/16 09:58 Dose: Not Given Loratadine (Claritin) 10 mg PO DAILY [facility] Last Admin: 12/01/16 14:45 Dose: 10 mg Meclizine HCl (Antivert) 12.5 mg PO DAILY [facility] Last Admin: 12/01/16 14:45 Dose: 12.5 mg Metoclopramide HCl (Reglan) 10 mg IVP Q6 PRN PRN Reason: Nausea/Vomiting Metronidazole (Flagyl) 500 mg PO Q8 [facility] Last Admin: 12/01/16 14:44 Dose: 500 mg Simethicone (Mylicon Chew Tab) 80 mg PO TID PRN PRN Reason: gas and bloating Sitagliptin Phosphate (Januvia) 50 mg PO DAILY [facility] Last Admin: 12/01/16 09:58 Dose: Not Given - Labs Labs: 11/29/16 12:17 11/29/16 12:17 PT 11.7 SECONDS (9.7-12.2) 11/29/16 12:17 INR 1.0 11/29/16 12:17 APTT 35 SECONDS (21-34) H 11/29/16 12:17 Assessment and Plan - Assessment and Plan (Free Text) Assessment: Patient is seen and examined, back from colonoscopy. No acute bleeding, able to tolerate diet, NAD. D/W DR Banerjee, plan to discharge home today. Advised to continue present meds and follow up in the office in 1 week.
[2016-12-02] MEDS ORDERED: Ergocalciferol 50,000 Intl Units Cap PO SCH (10:00)
--- NOTE | 2016-12-05 21:01 | CP.PCM.DIS ---
Provider - Provider Date of Admission: 11/28/16 20:48 Attending physician: Danny Banerjee MD Time Spent in preparation of Discharge (in minutes): 26 Diagnosis - Discharge Diagnosis (1) Ileus Status: Acute (2) Arteriosclerotic heart disease Status: Acute Priority: Medium (3) Asthma with bronchitis Status: Acute Priority: Low (4) Constipation Status: Acute (5) Degenerative joint disease Status: Acute Priority: Medium (6) Diverticulosis Status: Acute Hospital Course - Lab Results Lab Results: Micro Results 11/28/16 Unknown Urine Urine Culture - Final No Growth (<1,000 CFU/ML) Most Recent Lab Values WBC 6.9 K/uL (4.8-10.8) 11/29/16 12:17 RBC 4.54 Mil/uL (3.80-5.20) 11/29/16 12:17 Hgb 13.4 g/dL (11.0-16.0) 11/29/16 12:17 Hct 40.5 % (34.0-47.0) 11/29/16 12:17 MCV 89.1 fL (81.0-99.0) 11/29/16 12:17 MCH 29.6 pg (27.0-31.0) 11/29/16 12:17 MCHC 33.2 g/dL (33.0-37.0) 11/29/16 12:17 RDW 14.3 % (11.5-14.5) 11/29/16 12:17 Plt Count 208 K/uL (130-400) 11/29/16 12:17 MPV 8.4 fL (7.2-11.7) 11/29/16 12:17 Neut % (Auto) 60.3 % (50.0-75.0) 11/29/16 12:17 Lymph % (Auto) 29.5 % (20.0-40.0) 11/29/16 12:17 [place] % (Auto) 7.8 % (0.0-10.0) 11/29/16 12:17 Eos % (Auto) 1.9 % (0.0-4.0) 11/29/16 12:17 Baso % (Auto) 0.5 % (0.0-2.0) 11/29/16 12:17 Neut # 4.1 K/uL (1.8-7.0) 11/29/16 12:17 Lymph # 2.0 K/uL (1.0-4.3) 11/29/16 12:17 [place] # 0.5 K/uL (0.0-0.8) 11/29/16 12:17 Eos # 0.1 K/uL (0.0-0.7) 11/29/16 12:17 Baso # 0.0 K/uL (0.0-0.2) 11/29/16 12:17 PT 11.7 SECONDS (9.7-12.2) 11/29/16 12:17 INR 1.0 11/29/16 12:17 APTT 35 SECONDS (21-34) H 11/29/16 12:17 Sodium 137 mmol/L (132-148) 11/29/16 12:17 Potassium 4.3 mmol/L (3.6-5.2) 11/29/16 12:17 Chloride 100 mmol/L (98-107) 11/29/16 12:17 Carbon Dioxide 27 mmol/L (22-30) 11/29/16 12:17 Anion Gap 16 (10-20) 11/28/16 15:49 BUN 13 mg/dL (7-17) 11/29/16 12:17 Creatinine 0.8 MG/DL (0.7-1.2) 11/28/16 15:49 Est GFR ( Amer) > 60 11/28/16 15:49 Est GFR (Non-Af Amer) > 60 11/28/16 15:49 POC Glucose (mg/dL) 72 mg/dL (65-110) 12/01/16 07:11 Random Glucose 110 mg/dL (65-105) H 11/28/16 15:49 Calcium 9.0 mg/dl (8.6-10.4) 11/28/16 15:49 Total Bilirubin 1.3 mg/dL (0.2-1.3) 11/28/16 15:49 AST 44 U/L (14-36) H 11/28/16 15:49 ALT 36 U/L (9-52) 11/28/16 15:49 Alkaline Phosphatase 79 U/L (38-126) 11/28/16 15:49 Total Protein 8.5 g/dL (6.3-8.3) H 11/28/16 15:49 Albumin 4.8 g/dL (3.5-5.0) 11/28/16 15:49 Globulin 3.7 gm/dL (2.2-3.9) 11/28/16 15:49 Albumin/Globulin Ratio 1.3 (1.0-2.1) 11/28/16 15:49 Triglycerides 43 mg/dL (0-149) D 11/29/16 12:17 Cholesterol 115 mg/dL (0-199) 11/29/16 12:17 LDL Cholesterol Direct 47 mg/dL (0-129) 11/29/16 12:17 HDL Cholesterol 57 mg/dL (30-70) 11/29/16 12:17 Amylase 104 U/L (30-110) 11/29/16 12:17 Lipase 183 U/L (23-300) 11/28/16 15:49 Carcinoembryonic Ag 2.6 ng/mL (0-3.0) 11/29/16 12:17 CA 19-9 Antigen 20.8 U/mL (0-37) 11/29/16 12:17 CA 125 Antigen 7.2 U/mL (0-35) 11/29/16 12:17 Urine Color Yellow (YELLOW) 11/28/16 15:49 Urine Clarity Clear (Clear) 11/28/16 15:49 Urine pH 6.0 (5.0-8.0) 11/28/16 15:49 Ur Specific [place] 1.012 (1.003-1.030) 11/28/16 15:49 Urine Protein Negative mg/dL (NEGATIVE) 11/28/16 15:49 Urine Glucose (UA) Normal mg/dL (Normal) 11/28/16 15:49 Urine Ketones Trace mg/dL (NEGATIVE) 11/28/16 15:49 Urine Blood Negative (NEGATIVE) 11/28/16 15:49 Urine Nitrate Negative (NEGATIVE) 11/28/16 15:49 Urine Bilirubin Negative (NEGATIVE) 11/28/16 15:49 Urine Urobilinogen Normal mg/dL (0.2-1.0) 11/28/16 15:49 Ur Leukocyte Esterase Neg Gege/uL (Negative) 11/28/16 15:49 Urine WBC (Auto) < 1 /hpf (0-5) 11/28/16 15:49 Urine RBC (Auto) < 1 /hpf (0-3) 11/28/16 15:49 Ur Squamous Epith Cells < 1 /hpf (0-5) 11/28/16 15:49 Urine Bacteria Rare (<OCC) 11/28/16 15:49 Discharge Exam - Head Exam Head Exam: NORMAL INSPECTION - Eye Exam Eye Exam: Normal appearance Pupil Exam: NORMAL ACCOMODATION - ENT Exam ENT Exam: Normal Exam - Neck Exam Neck exam: Normal Inspection - Respiratory Exam Respiratory Exam: Decreased Breath Sounds - Cardiovascular Exam Cardiovascular Exam: REGULAR RHYTHM - GI/Abdominal Exam GI & Abdominal Exam: Normal Bowel Sounds - Rectal Exam Rectal Exam: Deferred - Exam External exam: NORMAL EXTERNAL EXAM - Back Exam Back exam: NORMAL INSPECTION - Neurological Exam Neurological exam: Oriented x3 - Psychiatric Exam Psychiatric exam: Anxious - Skin Skin Exam: Dry Discharge Plan - Follow Up Plan Condition: FAIR Disposition: HOME/ ROUTINE Instructions: Acute Abdominal Pain (DC), Acute Abdominal Pain (GEN), Hypertension (DC), Hypertension (GEN), Constipation (DC), Constipation (GEN) Additional Instructions: Follow up with Dr. Banerjee in one week. Referrals: Pat Townsend [Staff Provider] -
== END 2016-12-01 18:59 | disposition home or self-care (01) | DRG 392 ==
LOC: C.ER 12:28 → C.9E 20:48 → C.3T 22:26
PROVIDERS: ADMIT Internal Medicine; ATTEND Internal Medicine
PROC: 0DB78ZX Excision of Stomach, Pylorus, Via Natural or Artificial Opening Endoscopic, Diagnostic (ICD-10-PCS; 2016-11-30)
PROC: 0DBM8ZX Excision of Descending Colon, Via Natural or Artificial Opening Endoscopic, Diagnostic (ICD-10-PCS; principal; 2016-11-30 13:08)
DX: K29.00 Acute gastritis without bleeding (principal); E11.22 Type 2 diabetes mellitus with diabetic chronic kidney disease; K56.7 Ileus, unspecified; K52.9 Noninfective gastroenteritis and colitis, unspecified; E78.00 Pure hypercholesterolemia, unspecified; E78.5 Hyperlipidemia, unspecified; I25.10 Atherosclerotic heart disease of native coronary artery without angina pectoris; K27.9 Peptic ulcer, site unspecified, unspecified as acute or chronic, without hemorrhage or perforation; J45.909 Unspecified asthma, uncomplicated; K46.9 Unspecified abdominal hernia without obstruction or gangrene; K57.30 Diverticulosis of large intestine without perforation or abscess without bleeding; I12.9 Hypertensive chronic kidney disease with stage 1 through stage 4 chronic kidney disease, or unspecified chronic kidney disease; N18.9 Chronic kidney disease, unspecified; Z79.84 Long term (current) use of oral hypoglycemic drugs; Z87.01 Personal history of pneumonia (recurrent); Z87.442 Personal history of urinary calculi; Z95.1 Presence of aortocoronary bypass graft; Z95.2 Presence of prosthetic heart valve; K21.0 Gastro-esophageal reflux disease with esophagitis; K44.9 Diaphragmatic hernia without obstruction or gangrene; J40 Bronchitis, not specified as acute or chronic; K57.90 Diverticulosis of intestine, part unspecified, without perforation or abscess without bleeding

== ENCOUNTER 2017-01-22 19:25 | Emergency (ER) | payer MEDICARE, MEDICAID ==
[2017-01-22 19:25] VITALS: BMI 29.2
[2017-01-22] MEDS ORDERED: Sodium Chloride 0.9% 1,000 ML IV ONE (19:59)
[2017-01-22] MEDS ORDERED: Sodium Chloride 0.9% 1,000 ML ONE (20:07)
[2017-01-22 20:12] LABS: RBC URINE 1 /hpf (0-3); URINE BILIRUBIN NEGATIVE (NEGATIVE); URINE BLOOD NEGATIVE (NEGATIVE); URINE COLOR Yellow (YELLOW); URINE GLUCOSE (UA) NORMAL (Normal); URINE KETONE NEGATIVE (NEGATIVE); URINE LEUKOCYTE ESTERASE NEG Leu/uL (Negative); URINE PROTEIN 1+ mg/dL (NEGATIVE); URINE UROBILINOGEN NORMAL mg/dL (0.2-1.0); WBC URINE 3 /hpf (0-5)
[2017-01-22 20:17] LABS: BASO # 0.1 K/uL (0.0-0.2); BASO % 0.7 % (0.0-2.0); EOS # 0.3 K/uL (0.0-0.7); EOS % 2.6 % (0.0-4.0); HEMATOCRIT 38.6 % (34.0-47.0); LYMPH # 1.4 K/uL (1.0-4.3); LYMPH % 12.9 % (20.0-40.0); MEAN CORPUSCULAR HGB CONC 32.6 g/dL (33.0-37.0); MEAN PLATELET VOLUME 8.4 fL (7.2-11.7); MONO # 0.5 K/uL (0.0-0.8); MONO % 4.8 % (0.0-10.0); NRBC % 0.1 % (0.0-2.0); RED CELL DISTRIBUTION WIDTH 14.5 % (11.5-14.5); WHITE BLOOD COUNT 10.6 K/uL (4.8-10.8)
[2017-01-22 20:24] LABS: CHLORIDE 99 mmol/L (98-107); SODIUM 135 mmol/L (132-148)
[2017-01-22 20:25] LABS: POTASSIUM 3.8 mmol/L (3.6-5.2)
[2017-01-22 20:26] LABS: GFR AFRICAN-AMERICAN > 60
[2017-01-22 20:27] LABS: ALKALINE PHOSPHATASE 81 U/L (38-126); ALT/SGPT 44 U/L (9-52); AST/SGOT 38 U/L (14-36); BILIRUBIN,TOTAL 0.9 mg/dL (0.2-1.3); BLOOD UREA NITROGEN 21 mg/dL (7-17); CALCIUM 8.6 mg/dl (8.6-10.4); CARBON DIOXIDE 27 mmol/L (22-30); GLUCOSE,RANDOM 153 mg/dL (65-105)
--- NOTE | 2017-01-22 20:52 | C.PDOC ---
History Of Present Illness 76 year old female presents to the ED for evaluation of crampy abdominal pain which began around 2 days ago. Patient has had multiple evaluations for the same complaints and underwent CT Abdomen/Pelvis scan on 10/2016 and 11/2016 without significant findings. Patient denies fever, chills, back pain, nausea, vomiting, diarrhea at this time. Time Seen by Provider: 01/22/17 19:50 Chief Complaint (Nursing): Abdominal Pain History Per: Patient History/Exam Limitations: no limitations Onset/Duration Of Symptoms: Days (2) Current Symptoms Are (Timing): Still Present Location Of Pain/Discomfort: Other (right abdomen ) Radiation Of Pain To:: None Quality Of Discomfort: Cramping, "Pain" Associated Symptoms: denies: Fever, Chills, Nausea, Vomiting, Diarrhea Additional History Per: Patient Abnormal Vaginal Bleeding: No Past Medical History Reviewed: Historical Data, Nursing Documentation, Vital Signs Vital Signs: Last Vital Signs Temp 97.2 F L 01/22/17 21:06 Pulse 82 01/22/17 21:06 Resp 20 01/22/17 21:06 BP 168/78 H 01/22/17 21:06 Pulse Ox 96 01/22/17 21:33 - Medical History PMH: Arthritis (BACK ; R HAND FX), Asthma ("DUE TO ALLERGIES"-"NOT HOSPITAIZED IN MANY YEARS"), Diabetes, Diverticulitis, Fractures (RIGHT HAND-CASTED ONLY), Gall Bladder Disease, Hypercholesterolemia, Kidney Stones, Pneumonia, Chronic Kidney Disease Denies: HTN Surgical History: Cholecystectomy, Endoscopy - [facility] Procedures EXCISION OF DESCENDING COLON, ENDO, DIAGN (11/28/16) EXCISION OF STOMACH, PYLORUS, ENDO, DIAGN (11/28/16) FLUOROSCOPY OF GALLBLADDER & BILE DUCT USING L OSM CONTRAST (02/01/16) RESECTION OF GALLBLADDER, PERCUTANEOUS ENDOSCOPIC APPROACH (02/01/16) Family History: States: Unknown Family Hx - Social History Hx Tobacco Use: No Hx Alcohol Use: No Hx Substance Use: No - Immunization History Hx Tetanus Toxoid Vaccination: No Hx Influenza Vaccination: No Hx Pneumococcal Vaccination: Yes Review Of Systems Constitutional: Negative for: Fever, Chills Gastrointestinal: Positive for: Abdominal Pain (right-sided ). Negative for: Nausea, Vomiting, Diarrhea Physical Exam - Physical Exam Appears: Non-toxic, No Acute Distress Skin: Normal Color, Warm, Dry Eye(s): bilateral: Normal Inspection Oral Mucosa: Moist Neck: Supple Chest: Symmetrical, No Deformity, No Tenderness Cardiovascular: Rhythm Regular, No Murmur Respiratory: Normal Breath Sounds, No Rales, No Rhonchi, No Wheezing Gastrointestinal/Abdominal: Soft, No Tenderness, No Guarding, No Rebound, No Hernia, Other (obese abdomen. negative Arndt's sign, negative McBurney's point tenderness) Extremity: Normal ROM, Capillary Refill (less than 2 seconds ) Neurological/Psych: Oriented x3, Normal Speech, Normal Cognition Gait: Steady ED Course And Treatment - Laboratory Results Result Diagrams: 01/22/17 20:07 01/22/17 20:07 Lab Interpretation: Normal (ua neg.) ECG: Interpreted By Me ECG Rhythm: Sinus Rhythm O2 Sat by Pulse Oximetry: 96 (on RA) Pulse Ox Interpretation: Normal - Radiology CXR: Interpreted by Me CXR Interpretation: Yes: No Acute Disease - Other Rad abd x 2 X-Ray: Interpreted by Me (++ stool RLQ) Progress Note: Bloodwork, UA, Obstructive Series Abdomen XR, and EKG ordered and reviewed. Toradol IVP, Ultram PO, and IV Fluids administered. Reevaluation Time: 20:52 Reassessment Condition: Improved Medical Decision Making Medical Decision Making: prob constipation discomfort RLQ +FOS [address] 10/27 and 11/27 without significant findings. trial laxative and re-eval in AM. Disposition Doctor Will See Patient In The: Office Counseled Patient/Family Regarding: Studies Performed, Diagnosis - Disposition Referrals: [facility] [Outside] [facility] [Outside] Danny Banerjee MD [Staff Provider] - Disposition: HOME/ ROUTINE Disposition Time: 20:53 Condition: GOOD Additional Instructions: maggie un purgante y re-evalua parikh molestia del abdomen despues de usar el ruthann 2- 3 veces Sigue un esuavesante de los heces (Colace 100 mg ) dos veces al ralph Yeny examenes del laboratory son normales. Instructions: Constipation (ED), Gas and Bloating (ED) Forms: [employer] (Senegalese) Print Language: MALAY - Clinical Impression Clinical Impression: Colicky RLQ abdominal pain - Scribe Statement The provider has reviewed the documentation as recorded by the Scribe (Caridad Brady) Provider Attestation: All medical record entries made by the Scribe were at my direction and personally dictated by me. I have reviewed the chart and agree that the record accurately reflects my personal performance of the history, physical exam, medical decision making, and the department course for this patient. I have also personally directed, reviewed, and agree with the discharge instructions and disposition.
[2017-01-22 21:07] VITALS: BP 168/78; PULSE 82; RESP 20; TEMP 97.2
[2017-01-22 21:29] VITALS: O2SAT 96
--- NOTE | 2017-01-23 17:25 | RAD ---
PROCEDURE: Radiographs of the chest and abdomen (obstructive series) HISTORY: abd pain COMPARISON: CT abdomen and pelvis with IV contrast performed 11/28/16 TECHNIQUE: AP radiograph of the chest, with upright and supine radiographs of the abdomen. FINDINGS: Examination limited by habitus. CHEST: Median sternotomy wires. Superior most sternotomy wire appears discontinuous. Heart size appears within normal limits. Ectatic aorta. Atherosclerotic calcifications of the aortic knob. No focal consolidation, significant pleural effusion, or definite pneumothorax identified.Please note that chest x-ray has limited sensitivity for the detection of pulmonary masses. ABDOMEN AND PELVIS: Nonspecific bowel gas pattern. Moderate constipation. No definite free air. Severe scoliosis of the thoracolumbar spine convex to the right. IMPRESSION: Moderate constipation. Additional findings above.
== END 2017-01-22 21:10 | disposition home or self-care (01) ==
LOC: C.ER 19:25
DX: R10.31 Right lower quadrant pain (principal); E11.9 Type 2 diabetes mellitus without complications; K57.92 Diverticulitis of intestine, part unspecified, without perforation or abscess without bleeding
CPT/HCPCS: 74022; 80053; 81001; 83690; 85025; 96360; 99284; J7040

== ENCOUNTER 2017-03-24 08:30 | Emergency (ER) | payer MEDICARE, MEDICAID ==
[2017-03-24 08:30] VITALS: BMI 29.2
[2017-03-24 08:41] VITALS: TEMP 98.5
[2017-03-24 09:26] LABS: BASO # 0.1 K/uL (0.0-0.2); EOS # 0.7 K/uL (0.0-0.7); EOS % 10.6 % (0.0-4.0); HEMOGLOBIN 12.7 g/dL (11.0-16.0); LYMPH % 28.8 % (20.0-40.0); MEAN CELL VOLUME 88.9 fL (81.0-99.0); MEAN CORPUSCULAR HEMOGLOBIN 29.8 pg (27.0-31.0); MEAN CORPUSCULAR HGB CONC 33.5 g/dL (33.0-37.0); MEAN PLATELET VOLUME 8.2 fL (7.2-11.7); MONO # 0.5 K/uL (0.0-0.8); MONO % 6.9 % (0.0-10.0); NEUT # 3.6 K/uL (1.8-7.0); NEUT % 52.7 % (50.0-75.0); RBC 4.27 Mil/uL (3.80-5.20); RED CELL DISTRIBUTION WIDTH 14.6 % (11.5-14.5); WHITE BLOOD COUNT 6.8 K/uL (4.8-10.8)
[2017-03-24] MEDS: Albuterol-Ipratrop 3 mg / 0.5 (3 ml) UD IH SCH ×2 (09:50→10:06)
[2017-03-24 09:52] LABS: ALB/GLOB RATIO 1.2 (1.0-2.1); ALBUMIN 4.2 g/dL (3.5-5.0); ALT/SGPT 33 U/L (9-52); AST/SGOT 47 U/L (14-36); BLOOD UREA NITROGEN 20 mg/dL (7-17); CALCIUM 8.7 mg/dl (8.6-10.4); GFR AFRICAN-AMERICAN > 60; GFR NON-AFRICAN AMERICAN 54
--- NOTE | 2017-03-24 09:52 | RAD ---
HISTORY: COMPARISON: 01/22/2017 TECHNIQUE: Chest PA and lateral FINDINGS: LINES AND TUBES: None. LUNG AND PLEURA: The lungs are well inflated. There is mild pulmonary venous congestion and mild interstitial pulmonary edema. HEART AND MEDIASTINUM: The heart is not enlarged. Status post CABG. The hilar and mediastinal contours are within normal limits. SKELETAL STRUCTURES: The bony structures are within normal limits for the patient's age. VISUALIZED UPPER ABDOMEN: Normal. OTHER FINDINGS: None. IMPRESSION: Mild pulmonary venous congestion and interstitial pulmonary edema.
[2017-03-24] MEDS ORDERED: Albuterol-Ipratrop 3 mg / 0.5 (3 ml) UD ONE ×2 (09:57→10:44)
--- NOTE | 2017-03-24 10:20 | C.PDOC ---
History Of Present Illness 77 year old female presents to ED for evaluation of cough for the past 3 weeks. Patient states that cough was initially dry and non-productive but it became productive with white/yellow sputum. She reports 2 weeks ago seen by PMD, Dr. Banerjee, who prescribed Zithromax which patient completed with transient relief. Patient also reports feeling short of breath for the past 2 days, reports using nebulizer at home without significant relief. Denies chest pain, palpitations, headache, dizziness, or fever. Time Seen by Provider: 03/24/17 08:55 Chief Complaint (Nursing): Cough, Cold, Congestion History Per: Patient History/Exam Limitations: no limitations Onset/Duration Of Symptoms: Days Current Symptoms Are (Timing): Still Present Exacerbating Factor(s): Coughing Current Respiratory Medications: See Home Med List Severity: None Pain Scale Rating Of: 0 Associated Symptoms: Productive Cough. denies: Fever, Chills, Sweating, Chest Pain, Bloody Cough, Heart Racing, Leg/Calf Pain, Ankle/Leg Swelling, Dizziness, Light-headedness, Anxiety, Tingling In Hands Or Face, Musle Spasms In Hands Or Feet Reports Recently: Treated By A Physician Recent travel outside of the [place]: No Additional History Per: Patient Past Medical History Reviewed: Historical Data, Nursing Documentation, Vital Signs Vital Signs: Last Vital Signs Temp 98.5 F 03/24/17 12:02 Pulse 85 03/24/17 12:02 Resp 20 03/24/17 12:02 BP 135/65 03/24/17 12:02 Pulse Ox 95 03/24/17 12:06 - Medical History PMH: Arthritis (BACK ; R HAND FX), Asthma ("DUE TO ALLERGIES"-"NOT HOSPITAIZED IN MANY YEARS"), Diabetes, Diverticulitis, Fractures (RIGHT HAND-CASTED ONLY), Gall Bladder Disease, Hypercholesterolemia, Kidney Stones, Pneumonia, Chronic Kidney Disease Surgical History: Cholecystectomy, Endoscopy - [facility] Procedures EXCISION OF DESCENDING COLON, ENDO, DIAGN (11/28/16) EXCISION OF STOMACH, PYLORUS, ENDO, DIAGN (11/28/16) FLUOROSCOPY OF GALLBLADDER & BILE DUCT USING L OSM CONTRAST (02/01/16) RESECTION OF GALLBLADDER, PERCUTANEOUS ENDOSCOPIC APPROACH (02/01/16) Family History: States: Unknown Family Hx - Social History Hx Tobacco Use: No Hx Alcohol Use: No Hx Substance Use: No - Immunization History Hx Tetanus Toxoid Vaccination: No Hx Influenza Vaccination: No Hx Pneumococcal Vaccination: Yes Review Of Systems Except As Marked, All Systems Reviewed And Found Negative. Constitutional: Negative for: Fever, Chills Cardiovascular: Negative for: Chest Pain, Palpitations, Edema Respiratory: Positive for: Cough, Shortness of Breath, Sputum. Negative for: Hemoptysis Gastrointestinal: Negative for: Nausea, Vomiting, Abdominal Pain Neurological: Negative for: Headache, Dizziness Physical Exam - Physical Exam Appears: Non-toxic, No Acute Distress Skin: Normal Color, Warm, Dry Head: Atraumatic, Normacephalic Eye(s): bilateral: Normal Inspection, EOMI Nose: Normal Oral Mucosa: Moist Neck: Normal ROM, Supple Chest: Symmetrical Cardiovascular: Rhythm Regular, No Murmur Respiratory: No Accessory Muscle Use, No Rales, Rhonchi (bilateral scattered), Wheezing (diffuse), Other (actively coughing) Gastrointestinal/Abdominal: Soft, No Tenderness Back: Normal Inspection, No CVA Tenderness Extremity: Normal ROM, No Pedal Edema, No Deformity Neurological/Psych: Oriented x3, Normal Speech Gait: Steady ED Course And Treatment - Laboratory Results Result Diagrams: 03/24/17 09:19 03/24/17 09:19 Lab Interpretation: No Acute Changes ECG: Interpreted By Me, Viewed By Me ECG Rhythm: Sinus Rhythm ECG Interpretation: No Acute Changes Rate From EC O2 Sat by Pulse Oximetry: 95 (RA) Pulse Ox Interpretation: Normal Medical Decision Making Medical Decision Making: Impression: SOB, asthma r.o pneumonia Plan: * Blood work * Chest x-ray * EKG * Solu-Medrol * Duonebs Progress: Labs reviewed and unremarkable CXR Mild pulmonary venous congestion and interstitial pulmonary edema. Reassess and dispo: 1020 Patient reevaluated and states she feels unchanged, still wheezing. Order additional duonebs and will observe in the ED 1144 Patient reevaluated and is now feeling better. She is seated upright and states he breathing has much improved. Lungs auscultated and sounds improved, minimal expiratory wheeze. Patient feels comfortable going home and asking to be discharged. Patient given follow up instructions. Instructed to return to ER if symptoms worsen or new symptoms arise. Disposition Counseled Patient/Family Regarding: Studies Performed, Diagnosis, Need For Followup, Rx Given - Disposition Referrals: Danny Banerjee MD [Staff Provider] - Disposition: HOME/ ROUTINE Disposition Time: 11:46 Condition: IMPROVED Additional Instructions: Your prescriptions were sent to your pharmacy [facility]. Please take as directed Follow up with your primary medical doctor in few days for further evaluation. Return to the emergency department at any time if symptoms persist or worsen. Prescriptions: Benzonatate [Tessalon Perles] 100 mg PO TID #30 sgl Prednisone 50 mg PO DAILY #5 tablet Instructions: Asthma (DC) Forms: [employer], [employer] (Northern Irish) - POA Present On Arrival: None - Clinical Impression Clinical Impression: Asthma with bronchitis - PA / FILLER WIPER / Resident Statement MD/DO has reviewed & agrees with the documentation as recorded. - Scribe Statement The provider has reviewed the documentation as recorded by the Scribe Carlota Brady All medical record entries made by the Kwameibdeniz were at my direction and personally dictated by me. I have reviewed the chart and agree that the record accurately reflects my personal performance of the history, physical exam, medical decision making, and the department course for this patient. I have also personally directed, reviewed, and agree with the discharge instructions and disposition. Nebulizer Treatments/Peak Flow - Duonebs Number of Bronchodilator Doses given?: 4 - Steroid Treatment Steroid: IV - Clinical Response Clinical Response: Improved
[2017-03-24] MEDS ORDERED: Albuterol-Ipratrop 3 mg / 0.5 (3 ml) UD IH STA (10:24)
[2017-03-24 12:03] VITALS: BP 135/65; PULSE 85; RESP 20
[2017-03-24 12:07] VITALS: O2SAT 95
--- NOTE | 2017-03-27 09:38 | CARD ---
APPROVED REPORT EKG Measurement Heart [id number] <Conclusion> Normal sinus rhythm Normal ECG
== END 2017-03-24 12:03 | disposition home or self-care (01) ==
LOC: C.ER 08:30
DX: J45.909 Unspecified asthma, uncomplicated (principal); J40 Bronchitis, not specified as acute or chronic; E78.00 Pure hypercholesterolemia, unspecified
CPT/HCPCS: 71046; 80053; 85025; 94640; 96374; 99285; J2930

== ENCOUNTER 2017-03-30 18:51 | Observation (INO) | payer MEDICARE, MEDICAID ==
--- NOTE | 2017-03-30 19:33 | C.PDOC ---
History Of Present Illness 77 y/o F c PMHx asthma, CABG p/w chest pain x 6 hours. Pain is midsternal, radaites to base of neck and radiates to back. Denies dyspnea any different than her asthma. Denies diaphoresis, nausea, vomiting, arm pain, leg swelling. Pain began at rest while standing waiting for bus. PMD Chriss. Time Seen by Provider: 03/30/17 19:20 Chief Complaint (Nursing): Chest Pain Past Medical History Vital Signs: Last Vital Signs Temp 98.3 F 03/30/17 19:00 Pulse 79 03/30/17 19:00 Resp 26 H 03/30/17 19:00 BP 182/75 H 03/30/17 19:00 Pulse Ox 96 03/30/17 19:34 - Medical History PMH: Arthritis (BACK ; R HAND FX), Asthma ("DUE TO ALLERGIES"-"NOT HOSPITAIZED IN MANY YEARS"), Diabetes, Diverticulitis, Fractures (RIGHT HAND-CASTED ONLY), Gall Bladder Disease, HTN, Hypercholesterolemia, Kidney Stones, Pneumonia, Chronic Kidney Disease Surgical History: Cholecystectomy, Endoscopy - [facility] Procedures EXCISION OF DESCENDING COLON, ENDO, DIAGN (11/28/16) EXCISION OF STOMACH, PYLORUS, ENDO, DIAGN (11/28/16) FLUOROSCOPY OF GALLBLADDER & BILE DUCT USING L OSM CONTRAST (02/01/16) RESECTION OF GALLBLADDER, PERCUTANEOUS ENDOSCOPIC APPROACH (02/01/16) Family History: States: Unknown Family Hx - Social History Hx Tobacco Use: No Hx Alcohol Use: No Hx Substance Use: No - Immunization History Hx Tetanus Toxoid Vaccination: No Hx Influenza Vaccination: No Hx Pneumococcal Vaccination: Yes Review Of Systems Except As Marked, All Systems Reviewed And Found Negative. Constitutional: Negative for: Fever Gastrointestinal: Negative for: Vomiting Physical Exam - Physical Exam Additional Physical Exam Comments: Constitutional: No acute distress. Head: Normocephalic. Atraumatic. Eyes: PERRL. EOMI. ENT: Moist mucous membranes. Neck: Supple. Cardiovascular: Regular rate. Radial pulses 2+ bilaterally. Chest: No tenderness. Respiratory: Diffuse wheezing. GI: Soft. Nontender. Back: No CVA tenderness. Musculoskeletal: No tenderness or swelling of extremities. Skin: No rash. Neurologic: Alert, no focal deficit. ED Course And Treatment - Laboratory Results Result Diagrams: 03/30/17 19:34 03/30/17 19:34 O2 Sat by Pulse Oximetry: 96 Medical Decision Making Medical Decision Making: EKG NSR 80 bpm, no ST/T wave changes. CXR no acute disease. No widened mediastinum. Patient states allergic to Aspirin. Dr. Banerjee accepts to his service for cardiac observation. Disposition Discussed With : Danny Banerjee - Disposition Disposition: HOSPITALIZED Disposition Time: 20:31 Condition: FAIR Forms: [employer] (Greenlandic) - POA Core Measure Indicators: Chest Pain - Clinical Impression Clinical Impression: Chest pain
[2017-03-30 19:45] LABS: BASO # 0.1 K/uL (0.0-0.2); BASO % 0.9 % (0.0-2.0); EOS # 0.4 K/uL (0.0-0.7); EOS % 3.7 % (0.0-4.0); HEMOGLOBIN 12.5 g/dL (11.0-16.0); LYMPH # 4.3 K/uL (1.0-4.3); LYMPH % 38.4 % (20.0-40.0); MEAN CELL VOLUME 88.8 fL (81.0-99.0); MEAN CORPUSCULAR HEMOGLOBIN 29.6 pg (27.0-31.0); MEAN CORPUSCULAR HGB CONC 33.3 g/dL (33.0-37.0); MEAN PLATELET VOLUME 8.2 fL (7.2-11.7); MONO # 0.7 K/uL (0.0-0.8); MONO % 6.3 % (0.0-10.0); NEUT # 5.7 K/uL (1.8-7.0); NEUT % 50.7 % (50.0-75.0); NRBC % 0.1 % (0.0-2.0); RBC 4.22 Mil/uL (3.80-5.20); RED CELL DISTRIBUTION WIDTH 14.3 % (11.5-14.5); WHITE BLOOD COUNT 11.2 K/uL (4.8-10.8)
[2017-03-30 19:55] LABS: INR 0.9; PROTHROMBIN TIME 10.4 SECONDS (9.7-12.2)
[2017-03-30 19:56] LABS: ALB/GLOB RATIO 1.2 (1.0-2.1); ALT/SGPT 44 U/L (9-52); AST/SGOT 42 U/L (14-36); BLOOD UREA NITROGEN 22 mg/dL (7-17); CALCIUM 8.6 mg/dl (8.6-10.4); GFR AFRICAN-AMERICAN > 60; GFR NON-AFRICAN AMERICAN 54
[2017-03-30 20:03] LABS: CK-MB 2.82 ng/mL (0.0-3.38)
[2017-03-30] MEDS ORDERED: Albuterol HFA 90 mcg/actuation (8 g) IH PRN (22:14)
[2017-03-30 22:46] VITALS: BMI 27.0
[2017-03-31] MEDS: Albuterol 0.042% Inhal Sol (1.25 mg/3 mL) UD INH SCH ×4 (01:26→21:40)
--- NOTE | 2017-03-31 09:02 | RAD ---
HISTORY: cp COMPARISON: No prior. TECHNIQUE: Chest PA and lateral FINDINGS: LUNGS: No alveolitis bilaterally. PLEURA: No significant pleural effusion identified. No pneumothorax apparent. CARDIOVASCULAR: Cardiac silhouette appears stable with post CABG changes again appreciated. Reticular markings remain increased which may reflect a limited element of pulmonary venous congestion and further clinical correlation is advised. OSSEOUS STRUCTURES: No significant abnormalities. VISUALIZED UPPER ABDOMEN: Normal. OTHER FINDINGS: None. IMPRESSION: Limited pulmonary venous congestion remains in question as described above. No alveolitis pleural effusion or pneumothorax bilaterally.
[2017-03-31] MEDS ORDERED: Home Med 1 UNIT (Prednisone [Prednisone] 50 MG) PO SCH (10:00)
--- NOTE | 2017-03-31 10:22 | CP.PCM.HP ---
History of Present Illness - History of Present Illness History of Present Illness: 77 year old female who comes to the [facility] ER complaining of chest pain and wheezing for the past 48 hours. Pain is over the sternum and radiates to the neck and spine. It started while she was waiting for a bus. Past history includes CABG 4 years ago, bronchial asthma, diabetes mellitus, osteoarthritis and muscle spasms. Patient admitted for observation and treatment. Present on Admission - Present on Admission Any Indicators Present on Admission: No History of DVT/PE: No History of Uncontrolled Diabetes: No Urinary Catheter: No Decubitus Ulcer Present: No History Surgical Site Infection Following: None Review of Systems - Review of Systems Systems not reviewed;Unavailable: Other (wheezing) - Constitutional Constitutional: Fatigue - EENT Ears: Tinnitus - Cardiovascular Cardiovascular: Chest Pain - Respiratory Respiratory: Dyspnea - Gastrointestinal Gastrointestinal: Constipation - Reproductive: Female Reproductive:Female: Post Menopausal - Musculoskeletal Musculoskeletal: Arthralgias, Back Pain - Integumentary Integumentary: Dry Skin - Neurological Neurological: Headaches Past Patient History - Infectious Disease Hx of Infectious Diseases: None - Tetanus Immunizations Tetanus Immunization: Up to Date - Past Medical History & Family History Past Medical History?: Yes - Past Social History Smoking Status: Never Smoked Chewing Tobacco Use: No Cigar Use: No Alcohol: None Drugs: Denies Home Situation {Lives}: Alone - CARDIAC Hx Cardiac Disorders: Yes Hx Hypercholesterolemia: Yes Hx Hypertension: Yes Other/Comment: Cabg. - PULMONARY Hx Asthma: Yes ("DUE TO ALLERGIES"-"NOT HOSPITAIZED IN MANY YEARS") Hx Pneumonia: Yes - NEUROLOGICAL Hx Neurological Disorder: Yes Hx Dizziness: Yes Hx Vertigo: Yes - HEENT Hx HEENT Problems: Yes Hx Cataracts: Yes Hx Sinusitis: Yes Other/Comment: WEAR EYEGLASSES FOR POOR VISION - RENAL Hx Chronic Kidney Disease: Yes Hx Kidney Stones: Yes - ENDOCRINE/METABOLIC Hx Diabetes Mellitus Type 2: Yes - INTEGUMENTARY Hx Dermatological Problems: No - MUSCULOSKELETAL/RHEUMATOLOGICAL Hx Arthritis: Yes Hx Falls: No - GASTROINTESTINAL Hx Diverticulitis: Yes Hx Gall Bladder Disease: Yes - GENITOURINARY/GYNECOLOGICAL Hx Genitourinary Disorders: No - PSYCHIATRIC Hx Substance Use: No - SURGICAL HISTORY Hx Cataract Extraction: Yes Hx Cardiac Catheterization: Yes Hx Cholecystectomy: Yes Hx Open Heart Surgery: Yes Other/Comment: Endoscopy,Colonoscopy. - ANESTHESIA Hx Anesthesia: Yes Hx Anesthesia Reactions: No Hx Malignant Hyperthermia: No Has any member of the family had a problem w/ anesthesia?: No Meds Allergies/Adverse Reactions: Allergies Allergy/AdvReac Type Severity Reaction Status Date / Time Penicillins Allergy Severe ANAPHYLAXIS Verified 03/30/17 19:07 aspirin Allergy Intermediate ITCHING Verified 03/30/17 19:07 sulfamethoxazole Allergy Intermediate RASH Verified 03/30/17 19:07 [From Bactrim] trimethoprim [From Bactrim] Allergy Intermediate RASH Verified 03/30/17 19:07 Physical Exam - Constitutional Appears: No Acute Distress - Head Exam Head Exam: NORMAL INSPECTION - Eye Exam Eye Exam: Normal appearance Pupil Exam: NORMAL ACCOMODATION - ENT Exam ENT Exam: Normal Exam - Neck Exam Neck exam: Positive for: Normal Inspection - Respiratory Exam Respiratory Exam: Wheezes - Cardiovascular Exam Cardiovascular Exam: REGULAR RHYTHM - GI/Abdominal Exam GI & Abdominal Exam: Normal Bowel Sounds - Rectal Exam Rectal Exam: Deferred - Exam External exam: NORMAL EXTERNAL EXAM - Back Exam Back exam: muscle spasm - Neurological Exam Neurological exam: Oriented x3 - Psychiatric Exam Psychiatric exam: Normal Affect - Skin Skin Exam: Dry Results - Vital Signs Recent Vital Signs: Last Vital Signs Temp 98.1 F 03/31/17 07:20 Pulse 73 03/31/17 07:20 Resp 18 03/31/17 07:20 BP 102/62 03/31/17 07:20 Pulse Ox 98 03/31/17 07:57 - Labs Result Diagrams: 03/30/17 19:34 03/31/17 04:08 Labs: Laboratory Results - last 24 hr 03/30/17 03/30/17 03/30/17 19:34 19:34 19:34 WBC 11.2 H D RBC 4.22 Hgb 12.5 Hct 37.5 MCV 88.8 MCH 29.6 MCHC 33.3 RDW 14.3 Plt Count 202 MPV 8.2 Neut % (Auto) 50.7 Lymph % (Auto) 38.4 [place] % (Auto) 6.3 Eos % (Auto) 3.7 Baso % (Auto) 0.9 Neut # 5.7 Lymph # 4.3 [place] # 0.7 Eos # 0.4 Baso # 0.1 PT 10.4 INR 0.9 APTT 27 Sodium 136 Potassium 3.9 Chloride 101 Carbon Dioxide 26 Anion Gap 13 BUN 22 H Creatinine 1.0 Est GFR ( Amer) > 60 Est GFR (Non-Af Amer) 54 POC Glucose (mg/dL) Random Glucose 98 Calcium 8.6 Total Bilirubin 0.9 AST 42 H ALT 44 Alkaline Phosphatase 65 Total Creatine Kinase 167 H CK-MB (Mass) 2.82 Troponin I < 0.0120 Total Protein 7.4 Albumin 4.0 Globulin 3.3 Albumin/Globulin Ratio 1.2 03/31/17 03/31/17 04:08 06:35 WBC RBC Hgb Hct MCV MCH MCHC RDW Plt Count MPV Neut % (Auto) Lymph % (Auto) [place] % (Auto) Eos % (Auto) Baso % (Auto) Neut # Lymph # [place] # Eos # Baso # PT INR APTT Sodium 134 Potassium 4.3 Chloride 100 Carbon Dioxide 28 Anion Gap BUN Creatinine Est GFR ( Amer) Est GFR (Non-Af Amer) POC Glucose (mg/dL) 105 Random Glucose Calcium Total Bilirubin AST ALT Alkaline Phosphatase Total Creatine Kinase CK-MB (Mass) Troponin I < 0.0120 Total Protein Albumin Globulin Albumin/Globulin Ratio Assessment & Plan (1) Chest pain Status: Acute (2) Arteriosclerotic heart disease Status: Acute Priority: Medium (3) Asthma with bronchitis Status: Acute Priority: Low (4) Constipation Status: Acute (5) Degenerative joint disease Status: Acute Priority: Medium
--- NOTE | 2017-03-31 11:11 | CARD ---
APPROVED REPORT EKG Measurement Heart [id number] <Conclusion> Normal sinus rhythm Normal ECG
[2017-03-31 15:22] LABS: CK-MB 1.43 ng/mL (0.0-3.38)
--- NOTE | 2017-03-31 15:53 | VASCLAB ---
PROCEDURE: Lower Extremity Venous Duplex Exam. HISTORY: dvt PRIORS: None. TECHNIQUE: Bilateral common femoral, femoral, popliteal and posterior tibial, peroneal and great saphenous veins were evaluated. Flow was assessed with color Doppler, compressibility, assessment of phasic flow and augmentation response. Report prepared by EMILY Campos, RVT FINDINGS: RIGHT: 1. Common Femoral Vein: 1.1. Compressibility - Fully compressible: Thrombus - None : Flow - Phasic: Augmentation -Normal: Reflux - None. 2. Femoral Vein: 2.1. Compressibility - Fully compressible: Thrombus - None : Flow - Phasic: Augmentation -Normal: Reflux - None. 3. Popliteal Vein: 3.1. Compressibility - Fully compressible: Thrombus - None : Flow - Phasic: Augmentation -Normal: Reflux - None. 4. Posterior Tibial Vein: 4.1. Compressibility - Fully compressible: Thrombus - None: Flow - Phasic: Augmentation -Normal: Reflux - None. 5. Peroneal Vein: 5.1. Compressibility - Fully compressible: Thrombus - None: Flow - Phasic: Augmentation -Normal: Reflux - None. 6. Great Saphenous Vein: 6.1. Compressibility - Fully compressible: Thrombus - None: Flow - Phasic: Augmentation - Normal: Reflux - None. LEFT: 1. Common Femoral Vein: 1.1. Compressibility - Fully compressible: Thrombus - None: Flow - Phasic: Augmentation -Normal: Reflux - None. 2. Femoral Vein: 2.1. Compressibility - Fully compressible: Thrombus - None: Flow - Phasic: Augmentation -Normal: Reflux - None. 3. Popliteal Vein: 3.1. Compressibility - Fully compressible: Thrombus - None : Flow - Phasic: Augmentation -Normal: Reflux - None. 4. Posterior Tibial Vein: 4.1. Compressibility - Fully compressible: Thrombus - None: Flow - Phasic: Augmentation -Normal: Reflux - None. 5. Peroneal Vein: 5.1. Compressibility - Fully compressible: Thrombus - None: Flow - Phasic: Augmentation -Normal: Reflux - None. 6. Great Saphenous Vein: 6.1. Compressibility - Fully compressible: Thrombus - None: Flow - Phasic: Augmentation - Normal: Reflux - None. OTHER FINDINGS: Right: None significant. Left: None significant. IMPRESSION: Right: No evidence of deep or superficial vein thrombosis of the right lower extremity. Normal valve function noted of the right side. Left: No evidence of deep or superficial vein thrombosis of the left lower extremity. Normal valve function noted of the left side.
[2017-03-31] MEDS: MethylPREDNISolone 40 mg Vial IV SCH ×2 (16:06→21:43)
[2017-03-31 17:08] VITALS: RESP 20
[2017-03-31] MEDS ORDERED: Iodixanol 320 MG/ML 100 ML BOTTLE IV ONE (17:12)
--- NOTE | 2017-03-31 18:18 | CT ---
PROCEDURE: CT Chest with contrast (Pulmonary Angiogram) HISTORY: Chest pain COMPARISON: None available. TECHNIQUE: Axial computed tomography images were obtained of the chest in the pulmonary arterial phase of enhancement. Coronal and sagittal reformatted images were created and reviewed. Maximum intensity projection (MIP) reconstructed images in the following planes: Axial and sagittal Intravenous contrast dose: 100 cc Visipaque 320 Mean Hounsfield unit values in the main pulmonary artery: 501.29 Radiation dose: Total exam DLP = 533.61 mGy-cm. This CT exam was performed using one or more of the following dose reduction techniques: Automated exposure control, adjustment of the mA and/or kV according to patient size, and/or use of iterative reconstruction technique. FINDINGS: PULMONARY ARTERIES: Unremarkable. No pulmonary embolism. AORTA: No acute findings. No thoracic aortic aneurysm. LUNGS: Unremarkable. No nodule, mass or pulmonary consolidation. PLEURAL SPACES: Unremarkable. No effusion or pneuomothorax. HEART: Unremarkable. No cardiomegaly. No significant pericardial effusion.Incidental Finding(s): Postoperative changes related to sternotomy. LYMPH NODES: No lymphadenopathy. BONES, CHEST WALL: Scoliosis, secondary degenerative change at multiple levels. . No fracture or destructive lesion OTHER FINDINGS: Upper abdomen: Atrophic right kidney, unremarkable left kidney. Status post cholecystectomy. No abnormality is seen in the gallbladder fossa. Small hiatal hernia. IMPRESSION: Unremarkable CT pulmonary angiogram. No pulmonary embolus. Additional benign and/or incidental findings described above.
--- NOTE | 2017-03-31 19:14 | CP.PCM.CON ---
History of Present Illness - History of Present Illness History of Present Illness: 77 years old female complaining of a retrosternal chest pain on and off yesterday at rest, with shortness of breath. She is having an exacerbation of a bronchial asthma for the past few days, and is taking Prednisone. She is also known to have a NIDDM, a CAD ( s/p CABG for the past 5 years), a HPTN, and hypecholesterolemia. A CXR reveals lung congestion. Review of Systems - Cardiovascular Cardiovascular: Chest Pain at Rest, Dyspnea - Respiratory Respiratory: Cough, Dyspnea, Wheezing, Chest Congestion, Pain with Coughing Past Patient History - Infectious Disease Hx of Infectious Diseases: None - Tetanus Immunizations Tetanus Immunization: Up to Date - Past Medical History & Family History Past Medical History?: Yes - Past Social History Smoking Status: Never Smoked Chewing Tobacco Use: No Cigar Use: No Alcohol: None Drugs: Denies Home Situation {Lives}: Alone - CARDIAC Hx Cardiac Disorders: Yes Hx Hypercholesterolemia: Yes Hx Hypertension: Yes Other/Comment: Cabg. - PULMONARY Hx Asthma: Yes ("DUE TO ALLERGIES"-"NOT HOSPITAIZED IN MANY YEARS") Hx Pneumonia: Yes - NEUROLOGICAL Hx Neurological Disorder: Yes Hx Dizziness: Yes Hx Vertigo: Yes - HEENT Hx HEENT Problems: Yes Hx Cataracts: Yes Hx Sinusitis: Yes Other/Comment: WEAR EYEGLASSES FOR POOR VISION - RENAL Hx Chronic Kidney Disease: Yes Hx Kidney Stones: Yes - ENDOCRINE/METABOLIC Hx Diabetes Mellitus Type 2: Yes - INTEGUMENTARY Hx Dermatological Problems: No - MUSCULOSKELETAL/RHEUMATOLOGICAL Hx Arthritis: Yes Hx Falls: No - GASTROINTESTINAL Hx Diverticulitis: Yes Hx Gall Bladder Disease: Yes - GENITOURINARY/GYNECOLOGICAL Hx Genitourinary Disorders: No - PSYCHIATRIC Hx Substance Use: No - SURGICAL HISTORY Hx Cataract Extraction: Yes Hx Cardiac Catheterization: Yes Hx Cholecystectomy: Yes Hx Open Heart Surgery: Yes Other/Comment: Endoscopy,Colonoscopy. - ANESTHESIA Hx Anesthesia: Yes Hx Anesthesia Reactions: No Hx Malignant Hyperthermia: No Has any member of the family had a problem w/ anesthesia?: No Meds Allergies/Adverse Reactions: Allergies Allergy/AdvReac Type Severity Reaction Status Date / Time Penicillins Allergy Severe ANAPHYLAXIS Verified 03/30/17 19:07 aspirin Allergy Intermediate ITCHING Verified 03/30/17 19:07 sulfamethoxazole Allergy Intermediate RASH Verified 03/30/17 19:07 [From Bactrim] trimethoprim [From Bactrim] Allergy Intermediate RASH Verified 03/30/17 19:07 - Medications Medications: Current Medications Albuterol Sulfate (Albuterol 0.042% Inhal Ashly (1.25mg/3ml) Ud) 2.5 mg INH RQ6 [facility] Benzonatate (Tessalon Perles) 100 mg PO TID [facility] Last Admin: 03/31/17 17:32 Dose: 100 mg Folic Acid (Folic Acid) 1 mg PO DAILY [facility] Last Admin: 03/31/17 09:11 Dose: 1 mg Heparin Sodium (Porcine) (Heparin) 5,000 units SC Q12 [facility] Last Admin: 03/31/17 09:27 Dose: 5,000 units Loratadine (Claritin) 10 mg PO DAILY [facility] Last Admin: 03/31/17 09:12 Dose: 10 mg Meclizine HCl (Antivert) 12.5 mg PO DAILY [facility] Last Admin: 03/31/17 09:12 Dose: 12.5 mg Methylprednisolone (Solu-Medrol) 20 mg IV Q8H [facility] Last Admin: 03/31/17 16:06 Dose: Not Given Sitagliptin Phosphate (Januvia) 100 mg PO DAILY [facility] Last Admin: 03/31/17 09:11 Dose: 100 mg Physical Exam - Constitutional Appears: No Acute Distress - Head Exam Head Exam: NORMAL INSPECTION - Eye Exam Eye Exam: Normal appearance - ENT Exam ENT Exam: Normal Exam - Neck Exam Neck exam: Positive for: Normal Inspection - Respiratory Exam Respiratory Exam: Rhonchi, Wheezes - Cardiovascular Exam Cardiovascular Exam: REGULAR RHYTHM - GI/Abdominal Exam GI & Abdominal Exam: Normal Bowel Sounds, Soft - Rectal Exam Rectal Exam: Deferred - Extremities Exam Extremities exam: Positive for: normal inspection - Back Exam Back exam: NORMAL INSPECTION - Neurological Exam Neurological exam: Alert, CN II-XII Intact, Normal Gait, Oriented x3 - Psychiatric Exam Psychiatric exam: Anxious - Skin Skin Exam: Dry, Intact, Normal Color, Warm Results - Vital Signs Recent Vital Signs: Last Vital Signs Temp 97.8 F 03/31/17 15:10 Pulse 76 03/31/17 15:10 Resp 20 03/31/17 15:10 BP 108/55 L 03/31/17 15:10 Pulse Ox 100 03/31/17 15:10 - Labs Result Diagrams: 03/30/17 19:34 03/31/17 04:08 Labs: Laboratory Results - last 24 hr 03/30/17 03/30/17 03/30/17 19:34 19:34 19:34 WBC 11.2 H D RBC 4.22 Hgb 12.5 Hct 37.5 MCV 88.8 MCH 29.6 MCHC 33.3 RDW 14.3 Plt Count 202 MPV 8.2 Neut % (Auto) 50.7 Lymph % (Auto) 38.4 [place] % (Auto) 6.3 Eos % (Auto) 3.7 Baso % (Auto) 0.9 Neut # 5.7 Lymph # 4.3 [place] # 0.7 Eos # 0.4 Baso # 0.1 PT 10.4 INR 0.9 APTT 27 Sodium 136 Potassium 3.9 Chloride 101 Carbon Dioxide 26 Anion Gap 13 BUN 22 H Creatinine 1.0 Est GFR ( Amer) > 60 Est GFR (Non-Af Amer) 54 POC Glucose (mg/dL) Random Glucose 98 Calcium 8.6 Total Bilirubin 0.9 AST 42 H ALT 44 Alkaline Phosphatase 65 Total Creatine Kinase 167 H CK-MB (Mass) 2.82 Troponin I < 0.0120 Total Protein 7.4 Albumin 4.0 Globulin 3.3 Albumin/Globulin Ratio 1.2 03/31/17 03/31/17 03/31/17 04:08 06:35 11:19 WBC RBC Hgb Hct MCV MCH MCHC RDW Plt Count MPV Neut % (Auto) Lymph % (Auto) [place] % (Auto) Eos % (Auto) Baso % (Auto) Neut # Lymph # [place] # Eos # Baso # PT INR APTT Sodium 134 Potassium 4.3 Chloride 100 Carbon Dioxide 28 Anion Gap BUN Creatinine Est GFR ( Amer) Est GFR (Non-Af Amer) POC Glucose (mg/dL) 105 199 H Random Glucose Calcium Total Bilirubin AST ALT Alkaline Phosphatase Total Creatine Kinase CK-MB (Mass) Troponin I < 0.0120 Total Protein Albumin Globulin Albumin/Globulin Ratio 03/31/17 03/31/17 14:24 16:35 WBC RBC Hgb Hct MCV MCH MCHC RDW Plt Count MPV Neut % (Auto) Lymph % (Auto) [place] % (Auto) Eos % (Auto) Baso % (Auto) Neut # Lymph # [place] # Eos # Baso # PT INR APTT Sodium Potassium Chloride Carbon Dioxide Anion Gap BUN Creatinine Est GFR ( Amer) Est GFR (Non-Af Amer) POC Glucose (mg/dL) 360 H Random Glucose Calcium Total Bilirubin AST ALT Alkaline Phosphatase Total Creatine Kinase 92 CK-MB (Mass) 1.43 Troponin I < 0.0120 Total Protein Albumin Globulin Albumin/Globulin Ratio Assessment & Plan (1) Chest pain Assessment and Plan: ECG: RSR, WNL. Serum TNI x 3 : WNL CXR: Mild lung congestion. Status: Acute (2) Asthma with bronchitis Assessment and Plan: Needs Steroids and bronchodilators by nebulizers. Status: Acute Priority: Low (3) Non-insulin dependent type 2 diabetes mellitus Status: Chronic (4) Coronary artery disease Assessment and Plan: Get an echocardiogram to assess LV function. Status: Chronic
--- NOTE | 2017-03-31 22:48 | CP.PCM.PN ---
Subjective - Date & Time of Evaluation Date of Evaluation: 03/31/17 Time of Evaluation: 13:25 - Subjective Subjective: Patient's chest pain has diminished. She is still wheezing. Treponin levels negative. Patient evaluated by Dr Tasi. Echocardiogram requested. Objective - Vital Signs/Intake and Output Vital Signs (last 24 hours): Temp Pulse Resp BP Pulse Ox 97.8 F 70 20 108/55 L 100 03/31/17 15:10 03/31/17 19:15 03/31/17 15:10 03/31/17 15:10 03/31/17 15:10 Intake and Output: 03/31/17 04/01/17 18:59 06:59 Intake Total 400 Balance 400 - Medications Medications: Current Medications Albuterol Sulfate (Albuterol 0.042% Inhal [place] (1.25mg/3ml) Ud) 2.5 mg INH RQ6 [facility] Last Admin: 03/31/17 21:40 Dose: 1.25 mg Benzonatate (Tessalon Perles) 100 mg PO TID [facility] Last Admin: 03/31/17 17:32 Dose: 100 mg Folic Acid (Folic Acid) 1 mg PO DAILY [facility] Last Admin: 03/31/17 09:11 Dose: 1 mg Heparin Sodium (Porcine) (Heparin) 5,000 units SC Q12 [facility] Last Admin: 03/31/17 21:43 Dose: 5,000 units Loratadine (Claritin) 10 mg PO DAILY [facility] Last Admin: 03/31/17 09:12 Dose: 10 mg Meclizine HCl (Antivert) 12.5 mg PO DAILY [facility] Last Admin: 03/31/17 09:12 Dose: 12.5 mg Methylprednisolone (Solu-Medrol) 20 mg IV Q8H [facility] Last Admin: 03/31/17 21:43 Dose: 20 mg Sitagliptin Phosphate (Januvia) 100 mg PO DAILY [facility] Last Admin: 03/31/17 09:11 Dose: 100 mg - Labs Labs: 03/30/17 19:34 03/31/17 04:08 PT 10.4 SECONDS (9.7-12.2) 03/30/17 19:34 INR 0.9 03/30/17 19:34 APTT 27 SECONDS (21-34) 03/30/17 19:34 - Constitutional Appears: No Acute Distress - Head Exam Head Exam: NORMAL INSPECTION - Eye Exam Eye Exam: Normal appearance Pupil Exam: NORMAL ACCOMODATION - ENT Exam ENT Exam: Normal Exam - Neck Exam Neck Exam: Normal Inspection - Respiratory Exam Respiratory Exam: Wheezes - Cardiovascular Exam Cardiovascular Exam: REGULAR RHYTHM - GI/Abdominal Exam GI & Abdominal Exam: Normal Bowel Sounds - Rectal Exam Rectal Exam: Deferred - Exam External exam: NORMAL EXTERNAL EXAM - Back Exam Back Exam: NORMAL INSPECTION - Neurological Exam Neurological Exam: Oriented x3 - Psychiatric Exam Psychiatric exam: Normal Affect - Skin Skin Exam: Dry Assessment and Plan (1) Chest pain Status: Acute (2) Arteriosclerotic heart disease Status: Acute (3) Asthma with bronchitis Status: Acute (4) Constipation Status: Acute (5) Degenerative joint disease Status: Acute
[2017-04-01] MEDS: Albuterol 0.042% Inhal Sol (1.25 mg/3 mL) UD INH SCH ×3 (01:13→14:08)
[2017-04-01] MEDS: MethylPREDNISolone 40 mg Vial IV SCH ×2 (05:53→13:38)
[2017-04-01 09:47] VITALS: BP 132/75; TEMP 97.8; O2SAT 96
[2017-04-01 16:20] VITALS: PULSE 86
--- NOTE | 2017-04-01 19:30 | CP.PCM.DIS ---
Provider - Provider Date of Admission: 03/30/17 20:28 Attending physician: Danny Banerjee MD Time Spent in preparation of Discharge (in minutes): 24 Diagnosis - Discharge Diagnosis (1) Chest pain Status: Acute (2) Arteriosclerotic heart disease Status: Acute Priority: Medium (3) Asthma with bronchitis Status: Acute Priority: Low (4) Constipation Status: Acute (5) Degenerative joint disease Status: Acute Priority: Medium Hospital Course - Lab Results Lab Results: Most Recent Lab Values WBC 11.2 K/uL (4.8-10.8) H D 03/30/17 19:34 RBC 4.22 Mil/uL (3.80-5.20) 03/30/17 19:34 Hgb 12.5 g/dL (11.0-16.0) 03/30/17 19:34 Hct 37.5 % (34.0-47.0) 03/30/17 19:34 MCV 88.8 fL (81.0-99.0) 03/30/17 19:34 MCH 29.6 pg (27.0-31.0) 03/30/17 19:34 MCHC 33.3 g/dL (33.0-37.0) 03/30/17 19:34 RDW 14.3 % (11.5-14.5) 03/30/17 19:34 Plt Count 202 K/uL (130-400) 03/30/17 19:34 MPV 8.2 fL (7.2-11.7) 03/30/17 19:34 Neut % (Auto) 50.7 % (50.0-75.0) 03/30/17 19:34 Lymph % (Auto) 38.4 % (20.0-40.0) 03/30/17 19:34 [place] % (Auto) 6.3 % (0.0-10.0) 03/30/17 19:34 Eos % (Auto) 3.7 % (0.0-4.0) 03/30/17 19:34 Baso % (Auto) 0.9 % (0.0-2.0) 03/30/17 19:34 Neut # 5.7 K/uL (1.8-7.0) 03/30/17 19:34 Lymph # 4.3 K/uL (1.0-4.3) 03/30/17 19:34 [place] # 0.7 K/uL (0.0-0.8) 03/30/17 19:34 Eos # 0.4 K/uL (0.0-0.7) 03/30/17 19:34 Baso # 0.1 K/uL (0.0-0.2) 03/30/17 19:34 ESR 12 mm/hr (0-20) 04/01/17 08:18 PT 10.4 SECONDS (9.7-12.2) 03/30/17 19:34 INR 0.9 03/30/17 19:34 APTT 27 SECONDS (21-34) 03/30/17 19:34 Sodium 132 mmol/L (132-148) 04/01/17 08:18 Potassium 4.9 mmol/L (3.6-5.2) 04/01/17 08:18 Chloride 98 mmol/L (98-107) 04/01/17 08:18 Carbon Dioxide 25 mmol/L (22-30) 04/01/17 08:18 Anion Gap 13 (10-20) 03/30/17 19:34 BUN 22 mg/dL (7-17) H 03/30/17 19:34 Creatinine 1.0 mg/dL (0.7-1.2) 03/30/17 19:34 Est GFR ( Amer) > 60 03/30/17 19:34 Est GFR (Non-Af Amer) 54 03/30/17 19:34 POC Glucose (mg/dL) 248 mg/dL (65-110) H 04/01/17 11:53 Random Glucose 98 mg/dL (65-105) 03/30/17 19:34 Calcium 8.6 mg/dl (8.6-10.4) 03/30/17 19:34 Total Bilirubin 0.9 mg/dL (0.2-1.3) 03/30/17 19:34 AST 42 U/L (14-36) H 03/30/17 19:34 ALT 44 U/L (9-52) 03/30/17 19:34 Alkaline Phosphatase 65 U/L (38-126) 03/30/17 19:34 Total Creatine Kinase 92 U/L (30-135) 01/19/18 14:24 CK-MB (Mass) 1.43 ng/mL (0.0-3.38) 03/31/17 14:24 Troponin I < 0.0120 ng/mL (0.00-0.120) 03/31/17 14:24 NT-Pro-B Natriuret Pep 225 pg/mL (0-900) 04/01/17 08:18 Total Protein 7.4 g/dL (6.3-8.3) 03/30/17 19:34 Albumin 4.0 g/dL (3.5-5.0) 03/30/17 19:34 Globulin 3.3 gm/dL (2.2-3.9) 03/30/17 19:34 Albumin/Globulin Ratio 1.2 (1.0-2.1) 03/30/17 19:34 Discharge Exam - Head Exam Head Exam: NORMAL INSPECTION - Eye Exam Eye Exam: Normal appearance Pupil Exam: NORMAL ACCOMODATION - ENT Exam ENT Exam: Normal Exam - Neck Exam Neck exam: Normal Inspection - Respiratory Exam Respiratory Exam: Wheezes - Cardiovascular Exam Cardiovascular Exam: REGULAR RHYTHM - GI/Abdominal Exam GI & Abdominal Exam: Normal Bowel Sounds - Rectal Exam Rectal Exam: Deferred - Exam External exam: NORMAL EXTERNAL EXAM - Extremities Exam Extremities exam: pedal pulses present - Back Exam Back exam: NORMAL INSPECTION - Neurological Exam Neurological exam: Oriented x3 - Psychiatric Exam Psychiatric exam: Normal Affect - Skin Skin Exam: Dry Discharge Plan - Follow Up Plan Condition: FAIR Disposition: HOME/ ROUTINE Instructions: Benzonatate (By mouth), Chest Pain (DC) Additional Instructions: Discharge patient home. Continue all home medications. Return to the Emergency room if symptoms persist/ worsen. Follow up with Danny Larkin on Monday04/04/18 Referrals: Danny Banerjee MD [Staff Provider] -
--- NOTE | 2017-04-02 10:41 | CARD ---
APPROVED REPORT EXAM: Two-dimensional and M-mode echocardiogram with Doppler and color Doppler. Other Information Quality : GoodRhythm : INDICATION Cardiac Disease: CAD Chest Pain CHEST CONGESTION 2D DIMENSIONS IVSd1.0 (0.7-1.1cm)LVDd3.8 (3.9-5.9cm) LVOT Diameter2.0 (1.8-2.4cm)PWd1.0 (0.7-1.1cm) LVDs2.4 (2.5-4.0cm)FS (%) 37.8 % LVEF (%)68.7 (>50%) M-Mode DIMENSIONS Left Atrium (MM)3.47 (2.5-4.0cm)Aortic Root3.42 (2.2-3.7cm) Aortic Cusp Exc.1.47 (1.5-2.0cm) Aortic Valve AoV Peak Uyrhldqy963.9cm/sAoV VTI61.6cmAO Peak GR.37mmHg LVOT Peak Rwpujxje911.2cm/sLVOT VTI29.27cmAO Mean GR.22mmHg SILVESTRE (VMAX)1.04oi0UGB (VTI)1.45cm2 Mitral Valve MV E Axdfqpab92.1cm/sMV A Fldfrcqk937.2cm/sE/A ratio0.7 TDI E/Lateral E'0.0E/Medial E'0.0 Tricuspid Valve TR Peak Wenrgrti975pk/sTR Peak Gr.86uySeYIDG04daSo LEFT VENTRICLE The left ventricle is normal size. There is normal left ventricular wall thickness. The Ejection Fraction is 65-70%. There is normal LV segmental wall motion. Transmitral Doppler flow pattern is Grade I-abnormal relaxation pattern. RIGHT VENTRICLE The right ventricle is normal size. The right ventricular systolic function is normal. ATRIA The left atrium size is normal. The right atrium size is normal. The interatrial septum is intact with no evidence for an atrial septal defect. AORTIC VALVE aortic valve not well seen but probably is trileaflet & sclerotic. No aortic regurgitation is present. peak/mean avg og 37/22 mm of hg.calculated silvestre of 1.4cmsq,c/w mild as. MITRAL VALVE Mitral annular calcification is mild. The mitral valve is normal in structure. Mitral regurgitation is mild. TRICUSPID VALVE The tricuspid valve is normal in structure. There is mild tricuspid regurgitation. Right ventricular systolic pressure is estimated at 30 mmHg. There is no pulmonary hypertension. PULMONIC VALVE The pulmonary valve is normal in structure. GREAT VESSELS The aortic root is normal size. The aortic root displays mild sclerocalcific changes of the aortic root. The IVC is normal in size and collapses >50% with inspiration. PERICARDIAL EFFUSION There is no pericardial effusion. <Conclusion> The left ventricle is normal size. There is normal left ventricular wall thickness. The Ejection Fraction is 65-70%. Transmitral Doppler flow pattern is Grade I-abnormal relaxation pattern. aortic valve not well seen but probably is trileaflet & sclerotic. No aortic regurgitation is present. peak/mean avg og 37/22 mm of hg.calculated silvestre of 1.4cmsq,c/w mild as. Mitral regurgitation is mild. There is mild tricuspid regurgitation. Right ventricular systolic pressure is estimated at 30 mmHg. There is no pulmonary hypertension.
[2017-04-02] MEDS ORDERED: Influenza Vaccine 60 mcg/0.5 mL SYR (4YR UP) IM ONE (11:00)
--- NOTE | 2017-04-02 21:37 | CON ---
DATE: HISTORY OF PRESENT ILLNESS: This 77-year-old lady with a past history of asthma, coronary artery disease, hypertension, coronary artery bypass graft surgery, diabetes mellitus, arthritis, hypercholesterolemia, renal stones, gallbladder disease and diverticulosis is now admitted with chest pain, general aches and pains, wheezing and shortness of breath and cough with scanty sputum. There is no fever, dizziness or seizures, no vomiting, no hematemesis, no hemoptysis, no abdominal pain. The chest pain was transient and it subsided rapidly and it is not there anymore. PAST MEDICAL HISTORY: She has a past history of diabetes mellitus, coronary artery disease, hypertension, renal stones, gallbladder disease and gallbladder surgery. ALLERGIES: SHE CARRIES A HISTORY OF ALLERGY TO PENICILLIN, SULFONAMIDES AND ASPIRIN. She has had allergic treatment by allergologist and has had immunotherapy for allergies to control asthma. SOCIAL HISTORY: She is a nonsmoker now. FAMILY HISTORY: Unremarkable. REVIEW OF SYSTEMS: Systemic review of symptoms as detailed above with chest pain, shortness of breath, weakness, cough. Other systems unremarkable. There is no dysuria, no vomiting, no abdominal pain, no dizziness, no seizures. She does have general aches and pains. PHYSICAL EXAMINATION: GENERAL: The patient is alert and oriented. VITAL SIGNS: She is afebrile with blood pressure of 102/62, pulse 72, respirations 18, hemoglobin oxygen saturation of 98%. NECK: There is no thyromegaly, no lymphadenopathy. HEENT: Unremarkable. HEART: Regular. No gallop rhythm. LUNGS: Diminished breath sounds over lung bases, rhonchi are present. Lungs with wheezing in the expiratory phase. ABDOMEN: Soft. EXTREMITIES: Legs: No ankle edema and no tenderness. Deep tendon reflexes are satisfactory. LABORATORY DATA: Her white count is 11,200; hemoglobin 12.5 and platelet count 2200. PT is 10.4, INR is 0.9. Serum sodium 134, potassium 4.3, chloride 100, CO2 of 28, BUN 22, creatinine 1. GFR is above 60, blood glucose is 199. AST 42, ALT 44, alkaline phos 65. Troponin is less than 0.012. Total protein 7.4, albumin 4. Chest x-ray shows signs of cardiac surgery with a seen in the chest x-ray. X-ray shows streaky bilaterally. IMPRESSION: Respiratory insufficiency, history of asthma, bronchitis, coronary artery disease, coronary artery bypass graft surgery, diabetes mellitus, arthritis, diverticulosis. RECOMMENDATIONS: Agree with current management and Cardiology followup, continue oxygen therapy, bronchodilators, vasodilators and medications prescribed by information security and PMD. We will check her ABGs and do studies to rule out venous thromboembolism, continue with all her medications and put her on thrombo prophylaxis. Moustapha Mayorga MD
== END 2017-04-01 16:13 | disposition home or self-care (01) ==
LOC: C.ER 18:51 → C.9E 20:28 → C.6T 22:31
PROVIDERS: ADMIT Internal Medicine; ATTEND Internal Medicine
DX: R07.9 Chest pain, unspecified (principal); I25.10 Atherosclerotic heart disease of native coronary artery without angina pectoris; J40 Bronchitis, not specified as acute or chronic; K59.00 Constipation, unspecified; Z88.0 Allergy status to penicillin; Z88.6 Allergy status to analgesic agent; Z88.2 Allergy status to sulfonamides; Z79.52 Long term (current) use of systemic steroids; Z79.899 Other long term (current) drug therapy; Z95.1 Presence of aortocoronary bypass graft; M19.041 Primary osteoarthritis, right hand; M47.9 Spondylosis, unspecified; E11.22 Type 2 diabetes mellitus with diabetic chronic kidney disease; Z79.84 Long term (current) use of oral hypoglycemic drugs; N18.9 Chronic kidney disease, unspecified; I12.9 Hypertensive chronic kidney disease with stage 1 through stage 4 chronic kidney disease, or unspecified chronic kidney disease; E78.00 Pure hypercholesterolemia, unspecified; J45.901 Unspecified asthma with (acute) exacerbation; K57.90 Diverticulosis of intestine, part unspecified, without perforation or abscess without bleeding
CPT/HCPCS: 36415; 71046; 71275; 80051; 80053; 82550; 82553; 82948; 83880; 84484; 85025; 85610; 85651; 85730; 87070; 93005; 93306; 93970; 94640; 96372; 96374; 96376; 99285; G0378; J1644; J2920; Q9967

== ENCOUNTER 2017-08-31 05:05 | Inpatient (IN) | payer MEDICARE, MEDICAID ==
[2017-08-31 05:05] VITALS: BMI 27.0
[2017-08-31] MEDS ORDERED: Sodium Chloride 0.9% 1,000 ML IV ONE (05:27)
--- NOTE | 2017-08-31 05:27 | C.PDOC ---
History Of Present Illness Patient presents with worsening right lower quadrant pain, nausea and vomiting. Sharp, cramping pain. worse tonight. No fever, chills, no chest pain , no diarrhea Time Seen by Provider: 08/31/17 05:26 Chief Complaint (Nursing): Abdominal Pain History Per: Patient History/Exam Limitations: no limitations Onset/Duration Of Symptoms: Days Current Symptoms Are (Timing): Worse Context: Other Severity: Severe Pain Scale Rating Of: 6 Location Of Pain/Discomfort: RLQ Radiation Of Pain To:: None Quality Of Discomfort: Sharp, Cramping Associated Symptoms: Nausea, Vomiting. denies: Fever, Chills Exacerbating Factors: None Alleviating Factors: None Last Bowel Movement: Yesterday Recent travel outside of the [place]: No Additional History Per: Family Abnormal Vaginal Bleeding: No Past Medical History Reviewed: Historical Data, Nursing Documentation, Vital Signs Vital Signs: Last Vital Signs Temp 98.1 F 08/31/17 05:13 Pulse 88 08/31/17 05:13 Resp 20 08/31/17 05:13 BP 195/94 H 08/31/17 05:13 Pulse Ox 99 08/31/17 05:50 - Medical History PMH: Arthritis, Asthma ("DUE TO ALLERGIES"-"NOT HOSPITAIZED IN MANY YEARS"), Diabetes, Diverticulitis, Fractures (RIGHT HAND-CASTED ONLY), Gall Bladder Disease, HTN, Hypercholesterolemia, Kidney Stones, Pneumonia, Chronic Kidney Disease Surgical History: Cholecystectomy, Endoscopy - [facility] Procedures EXCISION OF DESCENDING COLON, ENDO, DIAGN (11/28/16) EXCISION OF STOMACH, PYLORUS, ENDO, DIAGN (11/28/16) FLUOROSCOPY OF GALLBLADDER & BILE DUCT USING L OSM CONTRAST (02/01/16) RESECTION OF GALLBLADDER, PERCUTANEOUS ENDOSCOPIC APPROACH (02/01/16) Family History: States: No Known Family Hx - Social History Hx Tobacco Use: No Hx Alcohol Use: No Hx Substance Use: No - Immunization History Hx Tetanus Toxoid Vaccination: No Hx Influenza Vaccination: No Hx Pneumococcal Vaccination: No Review Of Systems Constitutional: Negative for: Fever, Chills Eyes: Negative for: Redness ENT: Negative for: Throat Pain Cardiovascular: Negative for: Chest Pain Respiratory: Negative for: Shortness of Breath Gastrointestinal: Positive for: Nausea, Vomiting, Abdominal Pain Genitourinary: Negative for: Dysuria Musculoskeletal: Negative for: Back Pain Skin: Negative for: Rash Neurological: Negative for: Weakness Psych: Negative for: Anxiety Physical Exam - Physical Exam Appears: Non-toxic Skin: Warm, Dry Head: Normacephalic Eye(s): bilateral: Normal Inspection Oral Mucosa: Dry Neck: Supple Chest: Symmetrical Cardiovascular: Rhythm Regular Respiratory: No Rales, No Rhonchi, No Wheezing Gastrointestinal/Abdominal: Soft, Tenderness (rlq), No Distention, No Guarding, No Rebound Back: Normal Inspection Extremity: Normal ROM Extremity: Bilateral: Atraumatic Pulses: Left Dorsalis Pedis: Normal, Right Dorsalis Pedis: Normal Neurological/Psych: Oriented x3, Normal Speech, Normal Cognition Gait: Steady ED Course And Treatment - Laboratory Results Result Diagrams: 08/31/17 05:46 08/31/17 05:46 ECG: Interpreted By Me, Viewed By Me ECG Rhythm: Sinus Rhythm (81), Nonspecific Changes O2 Sat by Pulse Oximetry: 99 Pulse Ox Interpretation: Normal Disposition Counseled Patient/Family Regarding: Studies Performed, Diagnosis - Disposition Disposition Time: 05:27 Condition: FAIR Forms: [facility] (Albanian) - Clinical Impression Clinical Impression: Abdominal pain Physician Patient Turnover Patient Signed Over To: Caroline Payne Handoff Comments: pending ct , re-eval and dispostion
[2017-08-31] MEDS ORDERED: Sodium Chloride 0.9% 1,000 ML ONE (05:48)
[2017-08-31] MEDS ORDERED: Morphine 4 MG/ML VIAL ONE (05:48)
[2017-08-31 05:50] LABS: BASO # 0.1 K/uL (0.0-0.2); BASO % 0.5 % (0.0-2.0); EOS % 0.2 % (0.0-4.0); HEMOGLOBIN 14.1 g/dL (11.0-16.0); LYMPH # 1.7 K/uL (1.0-4.3); LYMPH % 13.9 % (20.0-40.0); MEAN CORPUSCULAR HEMOGLOBIN 30.1 pg (27.0-31.0); MEAN CORPUSCULAR HGB CONC 33.8 g/dL (33.0-37.0); MEAN PLATELET VOLUME 8.2 fL (7.2-11.7); MONO # 0.4 K/uL (0.0-0.8); MONO % 3.1 % (0.0-10.0); NEUT # 10.1 K/uL (1.8-7.0); NEUT % 82.3 % (50.0-75.0); NRBC % 0.1 % (0.0-2.0); RBC 4.69 Mil/uL (3.80-5.20); RED CELL DISTRIBUTION WIDTH 14.3 % (11.5-14.5); WHITE BLOOD COUNT 12.2 K/uL (4.8-10.8)
[2017-08-31 05:57] LABS: PROTHROMBIN TIME 10.9 SECONDS (9.7-12.2)
[2017-08-31 06:03] LABS: ALB/GLOB RATIO 1.1 (1.0-2.1); ALBUMIN 4.7 g/dL (3.5-5.0); ALT/SGPT 34 U/L (9-52); AST/SGOT 40 U/L (14-36); BLOOD UREA NITROGEN 19 mg/dL (7-17); CALCIUM 9.3 mg/dl (8.6-10.4); GFR AFRICAN-AMERICAN > 60; GFR NON-AFRICAN AMERICAN > 60; LIPASE 197 U/L (23-300)
[2017-08-31 06:35] LABS: SQUAMOUS EPITHIAL < 1 /hpf (0-5); URINE AMORPHOUS SEDIMENT OCC /ul (<OCC); URINE BACTERIA RARE (<OCC); URINE BILIRUBIN NEGATIVE (NEGATIVE); URINE BLOOD NEGATIVE (NEGATIVE); URINE CLARITY Hazy (Clear); URINE COLOR Yellow (YELLOW); URINE GLUCOSE (UA) 2+ mg/dL (Normal); URINE LEUKOCYTE ESTERASE TRACE Leu/uL (Negative); URINE PROTEIN 1+ mg/dL (NEGATIVE); URINE UROBILINOGEN NORMAL mg/dL (0.2-1.0)
[2017-08-31] MEDS ORDERED: Iodixanol 320 MG/ML 100 ML BOTTLE IV ONE (06:43)
--- NOTE | 2017-08-31 09:01 | CP.PCM.HP ---
History of Present Illness - History of Present Illness History of Present Illness: H&P FOR DR. ARAUJO 77F presents with abdominal pain that started 4 days ago. Patient states pain started 4 days ago and has been getting worse. She states she had nausea and vomiting associated with the pain. She states the last couple of days she was having diarrhea and recently stopped having bowel movements. Patient denies fevers or chills. PMH: Bronchial asthma, diabetes mellitus, osteoarthritis and muscle spasms PSH: Cholecystectomy, CABG 4 years ago Social: denies tobacco and alcohol use Allergies: as per chart Present on Admission - Present on Admission Any Indicators Present on Admission: No Past Patient History - Infectious Disease Hx of Infectious Diseases: None - Tetanus Immunizations Tetanus Immunization: Up to Date - Past Medical History & Family History Past Medical History?: Yes - Past Social History Smoking Status: Never Smoked - CARDIAC Hx Hypercholesterolemia: Yes Hx Hypertension: Yes - PULMONARY Hx Asthma: Yes ("DUE TO ALLERGIES"-"NOT HOSPITAIZED IN MANY YEARS") Hx Pneumonia: Yes - NEUROLOGICAL Hx Dizziness: Yes Hx Vertigo: Yes - HEENT Hx HEENT Problems: Yes Hx Cataracts: Yes - RENAL Hx Chronic Kidney Disease: Yes Hx Kidney Stones: Yes - ENDOCRINE/METABOLIC Hx Diabetes Mellitus Type 2: Yes - INTEGUMENTARY Hx Dermatological Problems: No - MUSCULOSKELETAL/RHEUMATOLOGICAL Hx Arthritis: Yes Hx Fractures: Yes (RIGHT HAND-CASTED ONLY) - GASTROINTESTINAL Hx Diverticulitis: Yes Hx Gall Bladder Disease: Yes - GENITOURINARY/GYNECOLOGICAL Hx Genitourinary Disorders: No - PSYCHIATRIC Hx Substance Use: No - SURGICAL HISTORY Hx Cholecystectomy: Yes - ANESTHESIA Hx Anesthesia: Yes Hx Anesthesia Reactions: No Hx Malignant Hyperthermia: No Meds Allergies/Adverse Reactions: Allergies Allergy/AdvReac Type Severity Reaction Status Date / Time Penicillins Allergy Severe ANAPHYLAXIS Verified 08/31/17 05:22 aspirin Allergy Intermediate ITCHING Verified 08/31/17 05:22 sulfamethoxazole Allergy Intermediate RASH Verified 08/31/17 05:22 [From Bactrim] trimethoprim [From Bactrim] Allergy Intermediate RASH Verified 08/31/17 05:22 Physical Exam - Constitutional Appears: Non-toxic, No Acute Distress - Head Exam Head Exam: ATRAUMATIC - Eye Exam Eye Exam: EOMI, PERRL - ENT Exam ENT Exam: Mucous Membranes Moist - Respiratory Exam Respiratory Exam: Clear to Auscultation Bilateral, NORMAL BREATHING PATTERN - Cardiovascular Exam Cardiovascular Exam: REGULAR RHYTHM, +S1, +S2 - GI/Abdominal Exam GI & Abdominal Exam: Soft, Tenderness. absent: Distended, Firm, Guarding, Rebound, Rigid Additional comments: umbilical hernia, partially reduces - Extremities Exam Extremities exam: Negative for: pedal edema, tenderness - Neurological Exam Neurological exam: Alert, Oriented x3 - Psychiatric Exam Psychiatric exam: Normal Affect, Normal Mood - Skin Skin Exam: Dry, Intact, Normal Color, Warm Results - Vital Signs Recent Vital Signs: Last Vital Signs Temp 98.6 F 08/31/17 08:13 Pulse 74 08/31/17 08:13 Resp 16 08/31/17 08:13 BP 151/68 H 08/31/17 08:13 Pulse Ox 98 08/31/17 08:13 - Labs Result Diagrams: 08/31/17 05:46 08/31/17 05:46 Labs: Laboratory Results - last 24 hr 08/31/17 08/31/17 08/31/17 05:46 05:46 05:46 WBC 12.2 H RBC 4.69 Hgb 14.1 Hct 41.7 MCV 89.0 MCH 30.1 MCHC 33.8 RDW 14.3 Plt Count 200 MPV 8.2 Neut % (Auto) 82.3 H Lymph % (Auto) 13.9 L Waldo % (Auto) 3.1 Eos % (Auto) 0.2 Baso % (Auto) 0.5 Neut # (Auto) 10.1 H Lymph # (Auto) 1.7 Waldo # (Auto) 0.4 Eos # (Auto) 0.0 Baso # (Auto) 0.1 PT 10.9 INR 1.0 APTT 30 Sodium 142 Potassium 4.4 Chloride 101 Carbon Dioxide 26 Anion Gap 19 BUN 19 H Creatinine 0.8 Est GFR ( Amer) > 60 Est GFR (Non-Af Amer) > 60 Random Glucose 209 H Calcium 9.3 Total Bilirubin 1.3 AST 40 H ALT 34 Alkaline Phosphatase 84 Total Protein 9.0 H Albumin 4.7 Globulin 4.3 H Albumin/Globulin Ratio 1.1 Lipase 197 Urine Color Urine Clarity Urine pH Ur Specific Lopez Urine Protein Urine Glucose (UA) Urine Ketones Urine Blood Urine Nitrate Urine Bilirubin Urine Urobilinogen Ur Leukocyte Esterase Urine WBC (Auto) Urine RBC (Auto) Ur Squamous Epith Cells Amorphous Sediment Urine Bacteria 08/31/17 06:14 WBC RBC Hgb Hct MCV MCH MCHC RDW Plt Count MPV Neut % (Auto) Lymph % (Auto) Waldo % (Auto) Eos % (Auto) Baso % (Auto) Neut # (Auto) Lymph # (Auto) Waldo # (Auto) Eos # (Auto) Baso # (Auto) PT INR APTT Sodium Potassium Chloride Carbon Dioxide Anion Gap BUN Creatinine Est GFR ( Amer) Est GFR (Non-Af Amer) Random Glucose Calcium Total Bilirubin AST ALT Alkaline Phosphatase Total Protein Albumin Globulin Albumin/Globulin Ratio Lipase Urine Color Yellow Urine Clarity Hazy Urine pH 7.0 Ur Specific Lopez 1.018 Urine Protein 1+ H Urine Glucose (UA) 2+ H Urine Ketones 1+ H Urine Blood Negative Urine Nitrate Negative Urine Bilirubin Negative Urine Urobilinogen Normal Ur Leukocyte Esterase Trace Urine WBC (Auto) 4 Urine RBC (Auto) 1 Ur Squamous Epith Cells < 1 Amorphous Sediment Occ H Urine Bacteria Rare Assessment & Plan - Assessment and Plan (Free Text) Assessment: 7F with incarcerated umbilical hernia Plan: - NPO, IVF - Pain control - Antibiotics - Plan for OR Discussed with Dr. Warren Buck, PGY2
[2017-08-31] MEDS ORDERED: metroNIDAZOLE IV 500 mg/100 ml 500 MG/100 ML BAG ONE (09:19)
[2017-08-31] MEDS: metroNIDAZOLE IV 500 mg/100 ml 500 MG/100 ML BAG IVPB SCH ×2 (09:37→18:00)
--- NOTE | 2017-08-31 10:28 | RAD ---
PROCEDURE: CHEST RADIOGRAPH, 1 VIEW HISTORY: preop COMPARISON: Comparison made with chest radiograph dated 03/30 FINDINGS: LUNGS: Minor bibasilar atelectasis PLEURA: No pneumothorax or pleural fluid seen. CARDIOVASCULAR: Sternotomy wires again noted. OSSEOUS STRUCTURES: No significant abnormalities. VISUALIZED UPPER ABDOMEN: Normal. OTHER FINDINGS: None. IMPRESSION: Minor bibasilar atelectasis
[2017-08-31] MEDS ORDERED: Ciprofloxacin 400mg/200ml D5W 400 MG/200 ML BAG IVPB SCH (12:30)
--- NOTE | 2017-08-31 12:51 | CT ---
PROCEDURE: CT Abdomen and Pelvis with contrast HISTORY: rlq abd pain COMPARISON: CT scan of the abdomen pelvis dated 11/28/2016 TECHNIQUE: Contrast dose: 100 mL Visipaque 320 Radiation dose: Total exam DLP = 403.3 mGy-cm. This CT exam was performed using one or more of the following dose reduction techniques: Automated exposure control, adjustment of the mA and/or kV according to patient size, and/or use of iterative reconstruction technique. FINDINGS: LOWER THORAX: Unremarkable. LIVER: Mild hepatic steatosis. No gross lesion or ductal dilatation. GALLBLADDER AND BILE DUCTS: Prior cholecystectomy. PANCREAS: Unremarkable. No gross lesion or ductal dilatation. SPLEEN: Unremarkable. ADRENALS: Unremarkable. No mass. KIDNEYS AND URETERS: Atrophic right kidney. No hydronephrosis. No solid mass. VASCULATURE: Unremarkable. No aortic aneurysm. BOWEL: Bowel containing incarcerated ventral hernia with closed loop small-bowel obstruction and surrounding edema/ fluid within the hernia sac. Hiatal hernia APPENDIX: No findings to suggest acute appendicitis. PERITONEUM: Bilateral fat containing inguinal hernias. No free fluid. No free air. LYMPH NODES: Unremarkable. No enlarged lymph nodes. BLADDER: Unremarkable. REPRODUCTIVE: Unremarkable. BONES: No acute fracture. Scoliosis. OTHER FINDINGS: None. IMPRESSION: Bowel containing incarcerated ventral hernia with closed loop small-bowel obstruction and surrounding edema/ fluid within the hernia sac. Findings are concordant with preliminary interpretation provided by [facility]. Additional stable findings as above.
[2017-08-31] MEDS ORDERED: Succinylcholine Chloride 20 mg/ml Syr (5 ml) IV ONE (13:48)
[2017-08-31] MEDS ORDERED: Propofol 10 mg/ml Inj (20 ML) ONE (13:48)
[2017-08-31] MEDS ORDERED: Phenylephrine 10 mg/ml Inj ONE (13:48)
[2017-08-31] MEDS ORDERED: Rocuronium 10 mg/ml (5 ml) ONE (13:48)
[2017-08-31] MEDS ORDERED: Vancomycin 1 gm/D5W 200 ml 1 GM/200 ML BAG IVPB ONE (13:55)
[2017-08-31] MEDS ORDERED: Etomidate 20 mg/10ml Inj IV ONE (14:09)
[2017-08-31] MEDS ORDERED: Esmolol 100 mg/10ml Inj IV ONE (14:14)
[2017-08-31] MEDS ORDERED: Lidocaine/Epinephrine 1% 1:100000 10 ML IJ ONE (14:25)
[2017-08-31] MEDS ORDERED: Bupivacaine HCl 0.5% PF (30 ml) Inj ONE (14:26)
[2017-08-31] MEDS ORDERED: Bupivacaine HCl 0.25% PF (30 ml) Inj ONE (14:26)
[2017-08-31] MEDS ORDERED: Neostigmine Methylsulfate 3mg/3ml Syringe IV ONE (14:39)
[2017-08-31] MEDS ORDERED: Labetalol 25mg/5ml Syringe ONE (15:06)
--- NOTE | 2017-08-31 15:23 | PCM.SURG1 ---
Surgeon's Initial Post Op Note - Surgeon's Notes Surgeon: MD Warren Cotton Farmer: ASHOK BuckY2 Pre-Operative Diagnosis: Incarcerated Umbilical hernia Operative Findings: Umbilical hernia Post-Operative Diagnosis: Incarcerated umbilical hernia Operation Performed: Umbilical hernia repair with mesh Specimen/Specimens Removed: n/a Estimated Blood Loss: EBL {In ML}: 20 Date of Surgery/Procedure: 08/31/17 Time of Surgery/Procedure: 13:30
[2017-08-31] MEDS ORDERED: Labetalol 25mg/5ml Syringe IVP PRN (15:24)
[2017-08-31] MEDS: HYDROmorphone 0.5 mg/0.5 ml ISec IVP PRN ×2 (16:23→16:40)
[2017-08-31 17:10] VITALS: RESP 20
[2017-08-31] MEDS: HYDROmorphone 1 mg/ml ISec IVP PRN (17:22)
[2017-08-31] MEDS: Ciprofloxacin 400mg/200ml D5W 400 MG/200 ML BAG IVPB SCH (19:00)
[2017-08-31] MEDS: Oxycodone/Acetaminophen 5/325 mg Tab PO PRN (21:42)
[2017-08-31] MEDS: Sodium Chloride 0.9% 1,000 ML IV SCH (22:15)
[2017-09-01] MEDS: metroNIDAZOLE IV 500 mg/100 ml 500 MG/100 ML BAG IVPB SCH ×3 (01:25→17:25)
[2017-09-01] MEDS: HYDROmorphone 1 mg/ml ISec IVP PRN ×3 (01:34→15:32)
[2017-09-01] MEDS: Ciprofloxacin 400mg/200ml D5W 400 MG/200 ML BAG IVPB SCH ×2 (05:54→18:08)
--- NOTE | 2017-09-01 06:16 | OP ---
PROCEDURE DATE: 08/31/2017 INDICATIONS: The patient is a 77-year-old woman, who has a remote history of a laparoscopic cholecystectomy, admitted to the hospital with abdominal pain and bowel obstruction. OPERATIVE FINDINGS: There was no incarcerated bowel or omentum at the hernia at the time of the exploration. There was however an extensive sac that was fulgurated on the defect. The defect was only about 2 cm in size, but the sac had become quite big. Sac was removed. No bowel was involved. The omentum was brought down over the small bowel and then a large 11 cm x 14 cm Ventrio mesh was used to repair the hernia. The actual defect was identified and the fascia stripped away. The mesh was then furled completely and brought up against the abdominal wall. After this had been done, the area was closed with interrupted sutures. After we were satisfied with the closure, we checked again for hemostasis. We then closed the wound with subcuticular closure after injection of , the procedure was terminated. Blood loss for the procedure was 25 mL. Operation carried out was repair of incarcerated incisional hernia with mesh. Blade Kelley Jr., MD cc: Danny Banerjee MD
[2017-09-01 07:33] LABS: ALB/GLOB RATIO 1.2 (1.0-2.1); ALBUMIN 3.5 g/dL (3.5-5.0); ALT/SGPT 37 U/L (9-52); AST/SGOT 38 U/L (14-36); BASO % 0.1 % (0.0-2.0); BLOOD UREA NITROGEN 20 mg/dL (7-17); CALCIUM 7.9 mg/dl (8.6-10.4); EOS % 0.4 % (0.0-4.0); GFR AFRICAN-AMERICAN > 60; GFR NON-AFRICAN AMERICAN > 60; LYMPH # 0.8 K/uL (1.0-4.3); LYMPH % 7.4 % (20.0-40.0); MEAN CELL VOLUME 90.9 fL (81.0-99.0); MEAN CORPUSCULAR HEMOGLOBIN 29.9 pg (27.0-31.0); MEAN CORPUSCULAR HGB CONC 32.9 g/dL (33.0-37.0); MEAN PLATELET VOLUME 8.7 fL (7.2-11.7); MONO # 0.8 K/uL (0.0-0.8); MONO % 7.3 % (0.0-10.0); NEUT # 9.5 K/uL (1.8-7.0); NEUT % 84.8 % (50.0-75.0); PLATELET COUNT 154 K/uL (130-400); RBC 3.68 Mil/uL (3.80-5.20); RED CELL DISTRIBUTION WIDTH 14.6 % (11.5-14.5); WHITE BLOOD COUNT 11.2 K/uL (4.8-10.8)
--- NOTE | 2017-09-01 08:03 | CP.PCM.PN ---
Subjective - Date & Time of Evaluation Date of Evaluation: 09/01/17 Time of Evaluation: 08:00 - Subjective Subjective: SURGERY NOTE FOR DR. ARAUJO 77F seen and examined at bedside. Patient continues to admit to pain diffusely in the abdomen, denies any nausea or vomiting, states she is tolerating liquid diet. Denies any flatus or BM yet. Objective - Vital Signs/Intake and Output Vital Signs (last 24 hours): Temp Pulse Resp BP Pulse Ox 98.3 F 76 20 120/61 97 09/01/17 00:00 09/01/17 00:00 09/01/17 00:00 09/01/17 00:00 09/01/17 00:00 Intake and Output: 09/01/17 09/01/17 06:59 18:59 Intake Total 700 1050 Output Total 600 Balance 700 450 - Medications Medications: Current Medications Acetaminophen (Tylenol 325mg Tab) 975 mg PO Q6 PRN PRN Reason: Fever >100.4 F Hydromorphone HCl (Dilaudid) 1 mg IVP Q4H PRN PRN Reason: Pain, severe (8-10) Last Admin: 09/01/17 01:34 Dose: 1 mg Metronidazole (Flagyl) 500 mg in 100 mls @ 100 mls/hr IVPB Q8H [facility] PRN Reason: Protocol Last Admin: 09/01/17 01:25 Dose: 100 mls/hr Ciprofloxacin (Cipro 400mg/200ml Dsw) 400 mg in 200 mls @ 133 mls/hr IVPB Q12H [facility] PRN Reason: Protocol Last Admin: 09/01/17 05:54 Dose: 133 mls/hr Sodium Chloride (Sodium Chloride 0.9%) 1,000 mls @ 100 mls/hr IV .Q10H [facility] Last Admin: 08/31/17 22:15 Dose: 100 mls/hr Ondansetron HCl (Zofran Inj) 4 mg IVP Q4 PRN PRN Reason: Nausea/Vomiting Oxycodone/Acetaminophen (Percocet 5/325 Mg Tab) 2 tab PO Q4H PRN PRN Reason: Pain, Mild (1-3) Stop: 09/03/17 19:34 Last Admin: 08/31/17 21:42 Dose: 2 tab Tamsulosin HCl (Flomax) 0.4 mg PO DAILY [facility] Last Admin: 08/31/17 22:15 Dose: 0.4 mg - Labs Labs: 09/01/17 07:09 09/01/17 07:09 PT 10.9 SECONDS (9.7-12.2) 08/31/17 05:46 INR 1.0 08/31/17 05:46 APTT 30 SECONDS (21-34) 08/31/17 05:46 - Constitutional Appears: Non-toxic, No Acute Distress - ENT Exam ENT Exam: Mucous Membranes Moist - Respiratory Exam Respiratory Exam: Clear to Ausculation Bilateral, NORMAL BREATHING PATTERN - Cardiovascular Exam Cardiovascular Exam: REGULAR RHYTHM, +S1, +S2 - GI/Abdominal Exam GI & Abdominal Exam: Soft, Tenderness (appropriately tender). absent: Distended , Firm, Guarding, Rigid, Rebound Additional comments: dressing clean dry intact - Extremities Exam Extremities Exam: absent: Pedal Edema, Tenderness - Neurological Exam Neurological Exam: Alert, Awake - Skin Skin Exam: Dry, Intact, Normal Color, Warm Assessment and Plan - Assessment and Plan (Free Text) Assessment: 77F s/p repair of incarcerated umbilical hernia POD1 Plan: - Advance diet as tolerated - Continue antibiotics - Await bowel functions - Monitor dressing Further recs discuss with Dr. Warren Buck, PGY2
[2017-09-01 08:31] LABS: BANDS 4 % (0-2); LYMPHOCYTE 11 % (20-40); MONOCYTE 5 % (0-10); NEUTROPHIL 80 % (50-75); TOTAL CELLS COUNTED 100
[2017-09-01 08:32] LABS: HYPOCHROMIC SLIGHT; PLATELET ESTIMATE NORMAL (NORMAL)
[2017-09-01] MEDS: Sodium Chloride 0.9% 1,000 ML IV SCH ×2 (08:41→17:26)
[2017-09-01] MEDS ORDERED: Albuterol HFA 90 mcg/actuation (8 g) IH PRN (14:00)
--- NOTE | 2017-09-01 22:35 | CP.PCM.CON ---
History of Present Illness - History of Present Illness History of Present Illness: Patient went to the [facility] ER complaining of severe abdominal pain. CT scan reveals incarcerated ventral hernia. Dr Kelley was called to evaluate patient for surgery. Part history includes diabetes mellitus and cardiac disease. Review of Systems - Constitutional Constitutional: Headache - Respiratory Respiratory: Dyspnea on Exertion - Gastrointestinal Gastrointestinal: Abdominal Pain - Musculoskeletal Musculoskeletal: Arthralgias - Integumentary Integumentary: Dry Skin - Neurological Neurological: Dizziness, Headaches Past Patient History - Infectious Disease Hx of Infectious Diseases: None - Tetanus Immunizations Tetanus Immunization: Up to Date - Past Medical History & Family History Past Medical History?: Yes - Past Social History Smoking Status: Never Smoked Chewing Tobacco Use: No Cigar Use: No Alcohol: None - CARDIAC Hx Cardiac Disorders: Yes Hx Hypercholesterolemia: Yes Hx Hypertension: Yes - PULMONARY Hx Respiratory Disorders: Yes Hx Asthma: Yes ("DUE TO ALLERGIES"-"NOT HOSPITAIZED IN MANY YEARS") Hx Pneumonia: Yes - NEUROLOGICAL Hx Neurological Disorder: Yes Hx Dizziness: Yes Hx Vertigo: Yes - HEENT Hx HEENT Problems: Yes Hx Cataracts: Yes - RENAL Hx Chronic Kidney Disease: Yes Hx Kidney Stones: Yes - ENDOCRINE/METABOLIC Hx Diabetes Mellitus Type 2: Yes - HEMATOLOGICAL/ONCOLOGICAL Hx Blood Disorders: No - INTEGUMENTARY Hx Dermatological Problems: No - MUSCULOSKELETAL/RHEUMATOLOGICAL Hx Falls: No - GASTROINTESTINAL Hx Gastrointestinal Disorders: Yes Hx Diverticulitis: Yes Hx Gall Bladder Disease: Yes - GENITOURINARY/GYNECOLOGICAL Hx Genitourinary Disorders: No - PSYCHIATRIC Hx Substance Use: No - SURGICAL HISTORY Hx Surgeries: Yes Hx Cholecystectomy: Yes - ANESTHESIA Hx Anesthesia: Yes Hx Anesthesia Reactions: No Hx Malignant Hyperthermia: No Meds Allergies/Adverse Reactions: Allergies Allergy/AdvReac Type Severity Reaction Status Date / Time Penicillins Allergy Severe ANAPHYLAXIS Verified 08/31/17 05:22 aspirin Allergy Intermediate ITCHING Verified 08/31/17 05:22 sulfamethoxazole Allergy Intermediate RASH Verified 08/31/17 05:22 [From Bactrim] trimethoprim [From Bactrim] Allergy Intermediate RASH Verified 08/31/17 05:22 - Medications Medications: Current Medications Acetaminophen (Tylenol 325mg Tab) 975 mg PO Q6 PRN PRN Reason: Fever >100.4 F Albuterol (Ventolin Hfa 90 Mcg/Actuation (8 G)) 2 puff IH RQ6 PRN PRN Reason: Wheezing Ergocalciferol (Drisdol 50,000 Intl Units Cap) 1 cap PO QWK [facility] Folic Acid (Folic Acid) 1 mg PO DAILY [facility] Heparin Sodium (Porcine) (Heparin) 5,000 units SC Q12 [facility] Last Admin: 09/01/17 21:16 Dose: 5,000 units Hydromorphone HCl (Dilaudid) 1 mg IVP Q4H PRN PRN Reason: Pain, severe (8-10) Last Admin: 09/01/17 15:32 Dose: 1 mg Metronidazole (Flagyl) 500 mg in 100 mls @ 100 mls/hr IVPB Q8H [facility] PRN Reason: Protocol Last Admin: 09/01/17 17:25 Dose: 100 mls/hr Ciprofloxacin (Cipro 400mg/200ml Dsw) 400 mg in 200 mls @ 133 mls/hr IVPB Q12H [facility] PRN Reason: Protocol Last Admin: 09/01/17 18:08 Dose: 133 mls/hr Sodium Chloride (Sodium Chloride 0.9%) 1,000 mls @ 100 mls/hr IV .Q10H [facility] Last Admin: 09/01/17 17:26 Dose: 100 mls/hr Meclizine HCl (Antivert) 12.5 mg PO DAILY [facility] Last Admin: 09/01/17 12:09 Dose: 12.5 mg Ondansetron HCl (Zofran Inj) 4 mg IVP Q4 PRN PRN Reason: Nausea/Vomiting Oxycodone/Acetaminophen (Percocet 5/325 Mg Tab) 2 tab PO Q4H PRN PRN Reason: Pain, Mild (1-3) Stop: 09/03/17 19:34 Last Admin: 08/31/17 21:42 Dose: 2 tab Tamsulosin HCl (Flomax) 0.4 mg PO DAILY [facility] Last Admin: 09/01/17 09:46 Dose: 0.4 mg Physical Exam - Constitutional Appears: In Acute Distress - Head Exam Head Exam: NORMOCEPHALIC - Eye Exam Eye Exam: Normal appearance Pupil Exam: NORMAL ACCOMODATION - ENT Exam ENT Exam: Normal Exam - Neck Exam Neck exam: Positive for: Normal Inspection - Cardiovascular Exam Cardiovascular Exam: REGULAR RHYTHM - GI/Abdominal Exam GI & Abdominal Exam: Distended - Rectal Exam Rectal Exam: Deferred - Exam External exam: NORMAL EXTERNAL EXAM - Extremities Exam Extremities exam: Positive for: pedal pulses present - Back Exam Back exam: muscle spasm - Neurological Exam Neurological exam: Oriented x3 - Psychiatric Exam Psychiatric exam: Depressed - Skin Skin Exam: Dry Results - Vital Signs Recent Vital Signs: Last Vital Signs Temp 99.1 F 09/01/17 16:00 Pulse 86 09/01/17 16:00 Resp 20 09/01/17 16:00 BP 125/67 09/01/17 16:00 Pulse Ox 97 09/01/17 16:00 - Labs Result Diagrams: 09/01/17 07:09 09/01/17 07:09 Labs: Laboratory Results - last 24 hr 09/01/17 09/01/17 09/01/17 07:09 07:09 07:17 WBC 11.2 H RBC 3.68 L Hgb 11.0 D Hct 33.5 L MCV 90.9 MCH 29.9 MCHC 32.9 L RDW 14.6 H Plt Count 154 MPV 8.7 Neut % (Auto) 84.8 H Lymph % (Auto) 7.4 L [place] % (Auto) 7.3 Eos % (Auto) 0.4 Baso % (Auto) 0.1 Neut # (Auto) 9.5 H Lymph # (Auto) 0.8 L [place] # (Auto) 0.8 Eos # (Auto) 0.0 Baso # (Auto) 0.0 Neutrophils % (Manual) 80 H Band Neutrophils % 4 H Lymphocytes % (Manual) 11 L Monocytes % (Manual) 5 Platelet Estimate Normal Hypochromasia (manual) Slight Sodium 135 Potassium 4.3 Chloride 100 Carbon Dioxide 25 Anion Gap 14 BUN 20 H Creatinine 0.9 Est GFR ( Amer) > 60 Est GFR (Non-Af Amer) > 60 POC Glucose (mg/dL) 238 H Random Glucose 230 H Calcium 7.9 L Total Bilirubin 1.7 H AST 38 H ALT 37 Alkaline Phosphatase 50 Total Protein 6.4 Albumin 3.5 D Globulin 2.8 Albumin/Globulin Ratio 1.2 09/01/17 09/01/17 09/01/17 11:05 16:35 20:59 WBC RBC Hgb Hct MCV MCH MCHC RDW Plt Count MPV Neut % (Auto) Lymph % (Auto) [place] % (Auto) Eos % (Auto) Baso % (Auto) Neut # (Auto) Lymph # (Auto) [place] # (Auto) Eos # (Auto) Baso # (Auto) Neutrophils % (Manual) Band Neutrophils % Lymphocytes % (Manual) Monocytes % (Manual) Platelet Estimate Hypochromasia (manual) Sodium Potassium Chloride Carbon Dioxide Anion Gap BUN Creatinine Est GFR ( Amer) Est GFR (Non-Af Amer) POC Glucose (mg/dL) 125 H 116 H 172 H Random Glucose Calcium Total Bilirubin AST ALT Alkaline Phosphatase Total Protein Albumin Globulin Albumin/Globulin Ratio Assessment & Plan (1) Incarcerated ventral hernia Status: Acute (2) Ileus Status: Acute (3) Coronary artery disease Status: Chronic (4) Non-insulin dependent type 2 diabetes mellitus Status: Chronic
--- NOTE | 2017-09-01 23:09 | CARD ---
APPROVED REPORT EKG Measurement Heart [id number] <Conclusion> Normal sinus rhythm Possible Left atrial enlargement Borderline ECG
[2017-09-02] MEDS: HYDROmorphone 1 mg/ml ISec IVP PRN ×2 (01:59→10:33)
[2017-09-02] MEDS: metroNIDAZOLE IV 500 mg/100 ml 500 MG/100 ML BAG IVPB SCH (02:00)
[2017-09-02] MEDS: Sodium Chloride 0.9% 1,000 ML IV SCH ×3 (04:55→14:18)
[2017-09-02] MEDS: Ciprofloxacin 400mg/200ml D5W 400 MG/200 ML BAG IVPB SCH (05:18)
[2017-09-02 06:51] LABS: BASO % 0.4 % (0.0-2.0); EOS # 0.2 K/uL (0.0-0.7); EOS % 2.3 % (0.0-4.0); HEMOGLOBIN 10.4 g/dL (11.0-16.0); LYMPH # 0.7 K/uL (1.0-4.3); LYMPH % 6.7 % (20.0-40.0); MEAN CELL VOLUME 89.6 fL (81.0-99.0); MEAN CORPUSCULAR HEMOGLOBIN 29.5 pg (27.0-31.0); MEAN CORPUSCULAR HGB CONC 32.9 g/dL (33.0-37.0); MEAN PLATELET VOLUME 8.5 fL (7.2-11.7); MONO # 0.8 K/uL (0.0-0.8); MONO % 7.9 % (0.0-10.0); NEUT # 8.4 K/uL (1.8-7.0); NEUT % 82.7 % (50.0-75.0); PLATELET COUNT 123 K/uL (130-400); RBC 3.53 Mil/uL (3.80-5.20); RED CELL DISTRIBUTION WIDTH 14.2 % (11.5-14.5); WHITE BLOOD COUNT 10.2 K/uL (4.8-10.8)
[2017-09-02 09:10] LABS: BANDS 2 % (0-2); EOSINOPHIL 3 % (0-4); LYMPHOCYTE 9 % (20-40); MONOCYTE 6 % (0-10); NEUTROPHIL 80 % (50-75); PLATELET ESTIMATE SLIGHTLY DECREASED (NORMAL); TOTAL CELLS COUNTED 100
[2017-09-02 09:11] LABS: ANISOCYTOSIS SLIGHT; HYPOCHROMIC SLIGHT
[2017-09-02 09:12] LABS: TOXIC GRANULATION PRESENT
[2017-09-02] MEDS ORDERED: Ergocalciferol 50,000 Intl Units Cap PO SCH (10:00)
--- NOTE | 2017-09-02 15:59 | CP.PCM.PN ---
Subjective - Date & Time of Evaluation Date of Evaluation: 09/02/17 Time of Evaluation: 07:00 - Subjective Subjective: General Surgery Progress Note for Dr. Kelley This 77F was seen and evaluated this Am at bedside no acute events overnight. She is currently tolerating regular diet. She denies CP, SOB, nausea vomiting or diarrhea. She reports she has not been out pf bed since she arrived at the hospital. Objective - Vital Signs/Intake and Output Vital Signs (last 24 hours): Temp Pulse Resp BP Pulse Ox 99.9 F H 88 20 138/70 98 09/02/17 08:32 09/02/17 08:32 09/02/17 08:32 09/02/17 08:32 09/02/17 08:32 Intake and Output: 09/02/17 09/02/17 06:59 18:59 Intake Total 1050 Output Total 1300 Balance -250 - Medications Medications: Current Medications Acetaminophen (Tylenol 325mg Tab) 975 mg PO Q6 PRN PRN Reason: Fever >100.4 F Albuterol (Ventolin Hfa 90 Mcg/Actuation (8 G)) 2 puff IH RQ6 PRN PRN Reason: Wheezing Ergocalciferol (Drisdol 50,000 Intl Units Cap) 1 cap PO QWK [facility] Last Admin: 09/02/17 10:09 Dose: 1 cap Folic Acid (Folic Acid) 1 mg PO DAILY [facility] Last Admin: 09/02/17 10:05 Dose: 1 mg Heparin Sodium (Porcine) (Heparin) 5,000 units SC Q12 [facility] Last Admin: 09/02/17 09:48 Dose: 5,000 units Hydromorphone HCl (Dilaudid) 1 mg IVP Q4H PRN PRN Reason: Pain, severe (8-10) Last Admin: 09/02/17 10:33 Dose: 1 mg Sodium Chloride (Sodium Chloride 0.9%) 1,000 mls @ 100 mls/hr IV .Q10H [facility] Last Admin: 09/02/17 14:18 Dose: 100 mls/hr Meclizine HCl (Antivert) 12.5 mg PO DAILY [facility] Last Admin: 09/02/17 10:10 Dose: 12.5 mg Ondansetron HCl (Zofran Inj) 4 mg IVP Q4 PRN PRN Reason: Nausea/Vomiting Oxycodone/Acetaminophen (Percocet 5/325 Mg Tab) 2 tab PO Q4H PRN PRN Reason: Pain, Mild (1-3) Stop: 09/03/17 19:34 Last Admin: 08/31/17 21:42 Dose: 2 tab Tamsulosin HCl (Flomax) 0.4 mg PO DAILY [facility] Last Admin: 09/02/17 09:47 Dose: 0.4 mg - Labs Labs: 09/02/17 06:41 09/02/17 06:41 PT 10.9 SECONDS (9.7-12.2) 08/31/17 05:46 INR 1.0 08/31/17 05:46 APTT 30 SECONDS (21-34) 08/31/17 05:46 - Constitutional Appears: Non-toxic, No Acute Distress - Head Exam Head Exam: ATRAUMATIC, NORMOCEPHALIC - Eye Exam Eye Exam: EOMI, Normal appearance - ENT Exam ENT Exam: Mucous Membranes Moist - Respiratory Exam Respiratory Exam: NORMAL BREATHING PATTERN - Cardiovascular Exam Cardiovascular Exam: +S1, +S2 - GI/Abdominal Exam GI & Abdominal Exam: Soft. absent: Firm, Guarding, Rigid, Tenderness - Neurological Exam Neurological Exam: Alert, Awake - Psychiatric Exam Psychiatric exam: Normal Affect, Normal Mood - Skin Skin Exam: Dry, Intact Assessment and Plan - Assessment and Plan (Free Text) Assessment: 77F POD#2 s/p umbilical hernia repair Vitals Normal WBC downtrending Continue regular diet Out of bed Physical therapy Pain control Trial void Further recs per Dr. Warren Forrester PGY2
--- NOTE | 2017-09-02 21:02 | CP.PCM.PN ---
Subjective - Date & Time of Evaluation Date of Evaluation: 09/02/17 Time of Evaluation: 16:15 - Subjective Subjective: Patient alert and responsive. She complains of abdominal pain and has not had a bowel movement as of yet. Presently, abdomen is soft but tender. WBC' s 10,000, Hgb 11 and glucose 139. Continue supportive measures. Objective - Vital Signs/Intake and Output Vital Signs (last 24 hours): Temp Pulse Resp BP Pulse Ox 99.9 F H 82 20 168/78 H 95 09/02/17 15:03 09/02/17 15:03 09/02/17 15:03 09/02/17 15:03 09/02/17 15:03 Intake and Output: 09/02/17 09/03/17 18:59 06:59 Intake Total 1050 Output Total 1300 Balance -250 - Medications Medications: Current Medications Acetaminophen (Tylenol 325mg Tab) 975 mg PO Q6 PRN PRN Reason: Fever >100.4 F Albuterol (Ventolin Hfa 90 Mcg/Actuation (8 G)) 2 puff IH RQ6 PRN PRN Reason: Wheezing Ergocalciferol (Drisdol 50,000 Intl Units Cap) 1 cap PO QWK [facility] Last Admin: 09/02/17 10:09 Dose: 1 cap Folic Acid (Folic Acid) 1 mg PO DAILY [facility] Last Admin: 09/02/17 10:05 Dose: 1 mg Heparin Sodium (Porcine) (Heparin) 5,000 units SC Q12 [facility] Last Admin: 09/02/17 09:48 Dose: 5,000 units Hydromorphone HCl (Dilaudid) 1 mg IVP Q4H PRN PRN Reason: Pain, severe (8-10) Last Admin: 09/02/17 10:33 Dose: 1 mg Sodium Chloride (Sodium Chloride 0.9%) 1,000 mls @ 100 mls/hr IV .Q10H [facility] Last Admin: 09/02/17 14:18 Dose: 100 mls/hr Meclizine HCl (Antivert) 12.5 mg PO DAILY [facility] Last Admin: 09/02/17 10:10 Dose: 12.5 mg Ondansetron HCl (Zofran Inj) 4 mg IVP Q4 PRN PRN Reason: Nausea/Vomiting Oxycodone/Acetaminophen (Percocet 5/325 Mg Tab) 2 tab PO Q4H PRN PRN Reason: Pain, Mild (1-3) Stop: 09/03/17 19:34 Last Admin: 08/31/17 21:42 Dose: 2 tab Tamsulosin HCl (Flomax) 0.4 mg PO DAILY [facility] Last Admin: 09/02/17 09:47 Dose: 0.4 mg - Labs Labs: 09/02/17 06:41 09/02/17 06:41 PT 10.9 SECONDS (9.7-12.2) 08/31/17 05:46 INR 1.0 08/31/17 05:46 APTT 30 SECONDS (21-34) 08/31/17 05:46 - Constitutional Appears: No Acute Distress - Head Exam Head Exam: NORMOCEPHALIC - Eye Exam Eye Exam: PERRL Pupil Exam: NORMAL ACCOMODATION - ENT Exam ENT Exam: Normal Exam - Neck Exam Neck Exam: Normal Inspection - Respiratory Exam Respiratory Exam: Decreased Breath Sounds - Cardiovascular Exam Cardiovascular Exam: REGULAR RHYTHM - GI/Abdominal Exam GI & Abdominal Exam: Tenderness - Exam External exam: NORMAL EXTERNAL EXAM - Extremities Exam Extremities Exam: Normal Inspection - Back Exam Back Exam: NORMAL INSPECTION - Neurological Exam Neurological Exam: Oriented x3 - Psychiatric Exam Psychiatric exam: Normal Affect - Skin Skin Exam: Dry Assessment and Plan (1) Incarcerated ventral hernia Status: Acute (2) Ileus Status: Acute (3) Coronary artery disease Status: Chronic (4) Non-insulin dependent type 2 diabetes mellitus Status: Chronic
[2017-09-02] MEDS: Oxycodone/Acetaminophen 5/325 mg Tab PO PRN (21:29)
[2017-09-03] MEDS: Sodium Chloride 0.9% 1,000 ML IV SCH (00:50)
[2017-09-03] MEDS: Oxycodone/Acetaminophen 5/325 mg Tab PO PRN (01:07)
[2017-09-03] MEDS: HYDROmorphone 1 mg/ml ISec IVP PRN (06:41)
[2017-09-03 08:33] VITALS: BP 159/74; PULSE 91; TEMP 97.5; O2SAT 97
[2017-09-03 09:13] LABS: URINE 24 HOUR UREA NITROGEN 6.07 g/24hr (12-20)
--- NOTE | 2017-09-03 12:36 | CP.PCM.DIS ---
Provider - Provider Date of Admission: 08/31/17 08:13 Attending physician: Blade Kelley Jr, MD Time Spent in preparation of Discharge (in minutes): 45 Hospital Course - Lab Results Lab Results: Most Recent Lab Values WBC 10.2 K/uL (4.8-10.8) 09/02/17 06:41 RBC 3.53 Mil/uL (3.80-5.20) L 09/02/17 06:41 Hgb 10.4 g/dL (11.0-16.0) L 09/02/17 06:41 Hct 31.6 % (34.0-47.0) L 09/02/17 06:41 MCV 89.6 fL (81.0-99.0) 09/02/17 06:41 MCH 29.5 pg (27.0-31.0) 09/02/17 06:41 MCHC 32.9 g/dL (33.0-37.0) L 09/02/17 06:41 RDW 14.2 % (11.5-14.5) 09/02/17 06:41 Plt Count 123 K/uL (130-400) L D 09/02/17 06:41 MPV 8.5 fL (7.2-11.7) 09/02/17 06:41 Neut % (Auto) 82.7 % (50.0-75.0) H 09/02/17 06:41 Lymph % (Auto) 6.7 % (20.0-40.0) L 09/02/17 06:41 [place] % (Auto) 7.9 % (0.0-10.0) 09/02/17 06:41 Eos % (Auto) 2.3 % (0.0-4.0) 09/02/17 06:41 Baso % (Auto) 0.4 % (0.0-2.0) 09/02/17 06:41 Neut # (Auto) 8.4 K/uL (1.8-7.0) H 09/02/17 06:41 Lymph # (Auto) 0.7 K/uL (1.0-4.3) L 09/02/17 06:41 [place] # (Auto) 0.8 K/uL (0.0-0.8) 09/02/17 06:41 Eos # (Auto) 0.2 K/uL (0.0-0.7) 09/02/17 06:41 Baso # (Auto) 0.0 K/uL (0.0-0.2) 09/02/17 06:41 Neutrophils % (Manual) 80 % (50-75) H 09/02/17 06:41 Band Neutrophils % 2 % (0-2) 09/02/17 06:41 Lymphocytes % (Manual) 9 % (20-40) L 09/02/17 06:41 Monocytes % (Manual) 6 % (0-10) 09/02/17 06:41 Eosinophils % (Manual) 3 % (0-4) 09/02/17 06:41 Toxic Granulation Present 09/02/17 06:41 Platelet Estimate Slightly decreased (NORMAL) L 09/02/17 06:41 Hypochromasia (manual) Slight 09/02/17 06:41 Anisocytosis (manual) Slight 09/02/17 06:41 PT 10.9 SECONDS (9.7-12.2) 08/31/17 05:46 INR 1.0 08/31/17 05:46 APTT 30 SECONDS (21-34) 08/31/17 05:46 Sodium 137 mmol/L (132-148) 09/02/17 06:41 Potassium 3.6 mmol/L (3.6-5.2) 09/02/17 06:41 Chloride 104 mmol/L (98-107) 09/02/17 06:41 Carbon Dioxide 22 mmol/L (22-30) 09/02/17 06:41 Anion Gap 14 (10-20) 09/01/17 07:09 BUN 20 mg/dL (7-17) H 09/01/17 07:09 Creatinine 0.9 mg/dL (0.7-1.2) 09/01/17 07:09 Est GFR ( Amer) > 60 09/01/17 07:09 Est GFR (Non-Af Amer) > 60 09/01/17 07:09 POC Glucose (mg/dL) 118 mg/dL (65-110) H 09/03/17 07:09 Random Glucose 230 mg/dL (65-105) H 09/01/17 07:09 Calcium 7.9 mg/dl (8.6-10.4) L 09/01/17 07:09 Total Bilirubin 1.7 mg/dL (0.2-1.3) H 09/01/17 07:09 AST 38 U/L (14-36) H 09/01/17 07:09 ALT 37 U/L (9-52) 09/01/17 07:09 Alkaline Phosphatase 50 U/L (38-126) 09/01/17 07:09 Total Protein 6.4 g/dL (6.3-8.3) 09/01/17 07:09 Albumin 3.5 g/dL (3.5-5.0) D 09/01/17 07:09 Globulin 2.8 gm/dL (2.2-3.9) 09/01/17 07:09 Albumin/Globulin Ratio 1.2 (1.0-2.1) 09/01/17 07:09 Lipase 197 U/L (23-300) 08/31/17 05:46 Urine Color Yellow (YELLOW) 08/31/17 06:14 Urine Clarity Hazy (Clear) 08/31/17 06:14 Urine pH 7.0 (5.0-8.0) 08/31/17 06:14 Ur Specific [place] 1.018 (1.003-1.030) 08/31/17 06:14 Urine Protein 1+ mg/dL (NEGATIVE) H 08/31/17 06:14 Urine Glucose (UA) 2+ mg/dL (Normal) H 08/31/17 06:14 Urine Ketones 1+ mg/dL (NEGATIVE) H 08/31/17 06:14 Urine Blood Negative (NEGATIVE) 08/31/17 06:14 Urine Nitrate Negative (NEGATIVE) 08/31/17 06:14 Urine Bilirubin Negative (NEGATIVE) 08/31/17 06:14 Urine Urobilinogen Normal mg/dL (0.2-1.0) 08/31/17 06:14 Ur Leukocyte Esterase Trace [place]/uL (Negative) 08/31/17 06:14 Urine WBC (Auto) 4 /hpf (0-5) 08/31/17 06:14 Urine RBC (Auto) 1 /hpf (0-3) 08/31/17 06:14 Ur Squamous Epith Cells < 1 /hpf (0-5) 08/31/17 06:14 Amorphous Sediment Occ /ul (<OCC) H 08/31/17 06:14 Urine Bacteria Rare (<OCC) 08/31/17 06:14 Urine Collection Time 24 HRS 09/03/17 02:30 Urine Total Volume 1750 mL 09/03/17 02:30 Ur Urea Nitrogen 24 Hr 6.07 g/24hr (12-20) L 09/03/17 02:30 Blood Type B POSITIVE 08/31/17 08:52 Antibody Screen Negative 08/31/17 08:52 - Hospital Course Hospital Course: 77 F came with incarcerated umbilical hernia. Pt was taken to OR. TOleated the procedure well. Pt was admitted for post op pain control. Pt tolerated diet. Had unrinary retention . On POD 3 when melgoza DCed, Pt voided freely. Binder was applied for pain. Dressing changed. Passing flatus. Ambulated. Discharge Exam - Head Exam Head Exam: NORMOCEPHALIC - Eye Exam Eye Exam: EOMI, Normal appearance, PERRL Pupil Exam: NORMAL ACCOMODATION, PERRL - ENT Exam ENT Exam: Mucous Membranes Moist - Neck Exam Neck exam: Full Rom, Normal Inspection - Respiratory Exam Respiratory Exam: NORMAL BREATHING PATTERN - Cardiovascular Exam Cardiovascular Exam: absent: Tachycardia - GI/Abdominal Exam GI & Abdominal Exam: Soft, Tenderness. absent: Distended, Firm, Guarding, Hernia, Rigid Additional comments: Incision has steristips. No hernia. - Exam Exam: NORMAL INSPECTION - Extremities Exam Extremities exam: full ROM, normal inspection - Back Exam Back exam: NORMAL INSPECTION - Neurological Exam Neurological exam: Alert, CN II-XII Intact, Normal Gait, Oriented x3, Reflexes Normal - Psychiatric Exam Psychiatric exam: Normal Affect, Normal Mood - Skin Skin Exam: Dry, Intact, Warm Discharge Plan - Discharge Medications Prescriptions: Docusate Sodium [Colace] 100 mg PO DAILY #10 capsule Oxycodone HCl/Acetaminophen [Percocet 10-325 mg Tablet] 1 each PO Q4 PRN #30 tablet PRN Reason: Pain, Moderate (4-7) traMADol [Ultram] 50 mg PO TID PRN #15 tab PRN Reason: Pain, Moderate (4-7) - Follow Up Plan Condition: FAIR Disposition: HOME/ ROUTINE Instructions: Abdominal Hernia Repair (DC) Additional Instructions: follow up at dr. Kelley's office in 1-2 weeks. Take pain med as needed No heavy lifting for 1 month Ok to take shower . Referrals: Blade Kelley Jr., MD [Staff Provider] -
[2017-09-03] MEDS ORDERED: Pneumococcal 23-Valent Vaccine IM ONE (14:39)
[2017-09-08] MEDS ORDERED: CHOLECALCIFEROL 50000 UNIT PO SCH (10:00)
== END 2017-09-03 16:51 | disposition home or self-care (01) | DRG 354 ==
LOC: C.ER 05:05 → C.9E 08:13 → C.5S 11:29 → C.3T 22:48
PROVIDERS: ADMIT Surgery Vascular Surgery; ATTEND Surgery Vascular Surgery
PROC: 0WUF0JZ Supplement Abdominal Wall with Synthetic Substitute, Open Approach (ICD-10-PCS; principal; 2017-08-31 17:00)
DX: K43.0 Incisional hernia with obstruction, without gangrene (principal); K56.7 Ileus, unspecified; E11.22 Type 2 diabetes mellitus with diabetic chronic kidney disease; E78.00 Pure hypercholesterolemia, unspecified; N18.9 Chronic kidney disease, unspecified; I12.9 Hypertensive chronic kidney disease with stage 1 through stage 4 chronic kidney disease, or unspecified chronic kidney disease; I25.10 Atherosclerotic heart disease of native coronary artery without angina pectoris; J45.909 Unspecified asthma, uncomplicated; Z79.84 Long term (current) use of oral hypoglycemic drugs; Z87.01 Personal history of pneumonia (recurrent); Z87.442 Personal history of urinary calculi; Z95.1 Presence of aortocoronary bypass graft

== ENCOUNTER 2018-03-31 10:26 | Emergency (ER) | payer MEDICARE, MEDICAID ==
[2018-03-31 10:26] VITALS: BMI 27.0
[2018-03-31 10:44] VITALS: RESP 18; O2SAT 97
[2018-03-31 11:39] LABS: EOS % 0.4 % (0.0-4.0); LYMPH # 0.4 K/uL (1.0-4.3); LYMPH % 4.6 % (20.0-40.0); MEAN CELL VOLUME 90.3 fL (81.0-99.0); MEAN CORPUSCULAR HGB CONC 33.3 g/dL (33.0-37.0); MEAN PLATELET VOLUME 8.1 fL (7.2-11.7); MONO # 0.3 K/uL (0.0-0.8); MONO % 3.3 % (0.0-10.0); NEUT # 7.8 K/uL (1.8-7.0); NEUT % 91.7 % (50.0-75.0); PLATELET COUNT 184 K/uL (130-400); RBC 4.59 Mil/uL (3.80-5.20); RED CELL DISTRIBUTION WIDTH 14.7 % (11.5-14.5); WHITE BLOOD COUNT 8.5 K/uL (4.8-10.8)
[2018-03-31 11:41] LABS: HEMOGLOBIN 13.8 g/dL (11.0-16.0)
[2018-03-31 11:47] LABS: GRANULAR CAST 1 /lpf (0-1); SQUAMOUS EPITHIAL 4 /hpf (0-5); URINE BILIRUBIN NEGATIVE (NEGATIVE); URINE BLOOD NEGATIVE (NEGATIVE); URINE CLARITY Hazy (Clear); URINE COLOR Amber (YELLOW); URINE GLUCOSE (UA) NORMAL (Normal); URINE LEUKOCYTE ESTERASE NEG Leu/uL (Negative); URINE PROTEIN 1+ mg/dL (NEGATIVE); URINE UROBILINOGEN NORMAL mg/dL (0.2-1.0)
[2018-03-31 11:52] LABS: ALB/GLOB RATIO 1.4 (1.0-2.1); ALBUMIN 4.6 g/dL (3.5-5.0); ALT/SGPT 32 U/L (9-52); AST/SGOT 49 U/L (14-36); BLOOD UREA NITROGEN 25 mg/dL (7-17); CALCIUM 8.7 mg/dl (8.6-10.4); GFR NON-AFRICAN AMERICAN > 60
--- NOTE | 2018-03-31 12:09 | C.PDOC ---
History Of Present Illness 78 year old female presents to the ED for evaluation of dizziness and suprapubic discomfort for 2 days. The patient reports multiple episodes of vomiting last night. She reports already having the flu this year. Denies headache, chest pain, and any other associated symptoms. Time Seen by Provider: 03/31/18 10:38 Chief Complaint (Nursing): Abdominal Pain History Per: Patient History/Exam Limitations: no limitations Onset/Duration Of Symptoms: Days (x2) Current Symptoms Are (Timing): Still Present Location Of Pain/Discomfort: Suprapubic Associated Symptoms: Nausea Recent travel outside of the [place]: No Past Medical History Reviewed: Historical Data, Nursing Documentation, Vital Signs Vital Signs: Last Vital Signs Temp 100.4 F H 03/31/18 11:25 Pulse 95 H 03/31/18 10:40 Resp 18 03/31/18 10:40 BP Pulse Ox 97 03/31/18 10:40 - Medical History PMH: Arthritis, Asthma ("DUE TO ALLERGIES"-"NOT HOSPITAIZED IN MANY YEARS"), Diabetes, Diverticulitis, Fractures (RIGHT HAND-CASTED ONLY), Gall Bladder Disease, HTN, Hypercholesterolemia, Kidney Stones, Pneumonia, Chronic Kidney Disease Surgical History: Cholecystectomy, Endoscopy - [facility] Procedures EXCISION OF DESCENDING COLON, ENDO, DIAGN (11/28/16) EXCISION OF STOMACH, PYLORUS, ENDO, DIAGN (11/28/16) FLUOROSCOPY OF GALLBLADDER & BILE DUCT USING L OSM CONTRAST (02/01/16) RESECTION OF GALLBLADDER, PERCUTANEOUS ENDOSCOPIC APPROACH (02/01/16) SUPPLEMENT ABDOMINAL WALL WITH SYNTH SUB, OPEN APPROACH (08/31/17) Family History: States: Unknown Family Hx - Social History Hx Tobacco Use: No Hx Alcohol Use: No Hx Substance Use: No - Immunization History Hx Tetanus Toxoid Vaccination: No Hx Influenza Vaccination: No Hx Pneumococcal Vaccination: No Review Of Systems Except As Marked, All Systems Reviewed And Found Negative. Cardiovascular: Negative for: Chest Pain Gastrointestinal: Positive for: Vomiting, Abdominal Pain (suprapubic discomfort. ) Neurological: Positive for: Dizziness. Negative for: Headache Physical Exam - Physical Exam Appears: Non-toxic, No Acute Distress Skin: Warm, Dry Head: Atraumatic, Normacephalic Eye(s): bilateral: Normal Inspection Oral Mucosa: Moist Neck: Normal ROM, Supple Chest: Symmetrical, No Deformity Cardiovascular: Rhythm Regular, No Murmur Respiratory: Normal Breath Sounds, No Rales, No Rhonchi, No Wheezing Gastrointestinal/Abdominal: Normal Exam, Soft, Tenderness (mild supratubic tenderness.) Extremity: Bilateral: Atraumatic, Normal Color And Temperature, Normal ROM Neurological/Psych: Oriented x3, Normal Speech, Normal Cognition Gait: Steady ED Course And Treatment - Laboratory Results Result Diagrams: 03/31/18 11:35 03/31/18 11:35 Lab Results: Total Bilirubin 1.8 mg/dL (0.2-1.3) H 03/31/18 11:35 AST 49 U/L (14-36) H D 03/31/18 11:35 ALT 32 U/L (9-52) 03/31/18 11:35 Alkaline Phosphatase 71 U/L (38-126) 03/31/18 11:35 Total Protein 7.8 g/dL (6.3-8.3) 03/31/18 11:35 Albumin 4.6 g/dL (3.5-5.0) 03/31/18 11:35 Globulin 3.3 gm/dL (2.2-3.9) 03/31/18 11:35 Albumin/Globulin Ratio 1.4 (1.0-2.1) 03/31/18 11:35 Urine Color Valerie (YELLOW) 03/31/18 11:35 Urine Clarity Hazy (Clear) 03/31/18 11:35 Urine pH 5.0 (5.0-8.0) 03/31/18 11:35 Ur Specific [place] 1.025 (1.003-1.030) 03/31/18 11:35 Urine Protein 1+ mg/dL (NEGATIVE) H 03/31/18 11:35 Urine Glucose (UA) Normal mg/dL (Normal) 03/31/18 11:35 Urine Ketones Trace mg/dL (NEGATIVE) 03/31/18 11:35 Urine Blood Negative (NEGATIVE) 03/31/18 11:35 Urine Nitrate Negative (NEGATIVE) 03/31/18 11:35 Urine Bilirubin Negative (NEGATIVE) 03/31/18 11:35 Urine Urobilinogen Normal mg/dL (0.2-1.0) 03/31/18 11:35 Ur Leukocyte Esterase Neg [place]/uL (Negative) 03/31/18 11:35 Urine WBC (Auto) 1 /hpf (0-5) 03/31/18 11:35 Urine RBC (Auto) 2 /hpf (0-3) 03/31/18 11:35 Ur Squamous Epith Cells 4 /hpf (0-5) 03/31/18 11:35 Hyaline Casts 3-5 /lpf (0-2) H 03/31/18 11:35 Granular Casts (Auto) 1 /lpf (0-1) 03/31/18 11:35 O2 Sat by Pulse Oximetry: 97 (RA) Pulse Ox Interpretation: Normal - Other Rad CXR X-Ray: Viewed By Me, Read By Radiologist Interpretation: FINDINGS: LUNGS: Poor inspiration with low lung volumes, crowded bronchovascular markings and mild bibasilar atelectasis. Questionable mild pulmonary venous congestive changes.. PLEURA: No significant pleural effusion identified, no pneumothorax apparent. CARDIOVASCULAR: Mild aortic atherosclerotic calcification present. Cardiomegaly. Sternotomy wires again noted.. OSSEOUS STRUCTURES: Degenerative osteoarthritis both shoulder girdles. VISUALIZED UPPER ABDOMEN: Normal. OTHER FINDINGS: None. IMPRESSION: Poor inspiration with low lung volumes, crowded bronchovascular markings and mild bibasilar atelectasis. Questionable mild pulmonary venous congestive changes.. PLEURA: X-ray ABD X-Ray: Viewed By Me, Read By Radiologist Interpretation: FINDINGS: BOWEL: No gross free intraperitoneal air no evidence of acute mechanical bowel obstruction. BONES: Moderate multilevel degenerative spondylosis. There appears to be left lateral stature loss L2 segment with significant dextroscoliosis. OTHER FINDINGS: None. IMPRESSION: No free intra peritoneal air. No evidence of acute mechanical bowel obstruction. Significant dextroscoliosis. Medical Decision Making Medical Decision Making: Initial plan: -Blood sent. -CXR -Ibuprofen -Zofran -Urine culture -Urinalysis Progress/Update: -x-ray of ABD -low grade temperature in the ER On re-evaluation the patients vital signs are stable. Patient advised to follow up with PMD. Disposition Counseled Patient/Family Regarding: Studies Performed, Diagnosis, Need For Followup - Disposition Referrals: Danny Banerjee MD [Staff Provider] - Disposition: HOME/ ROUTINE Disposition Time: 14:24 Condition: STABLE Instructions: Viral Syndrome (DC) Forms: [facility] ([place]), Gen Discharge Inst [place] - POA Present On Arrival: None - Clinical Impression Clinical Impression: Vomiting, Viral syndrome - Scribe Statement The provider has reviewed the documentation as recorded by the Scribe (Radha Avalos) Provider Attestation: All medical record entries made by the Scribe were at my direction and personally dictated by me. I have reviewed the chart and agree that the record accurately reflects my personal performance of the history, physical exam, medical decision making, and the department course for this patient. I have also personally directed, reviewed, and agree with the discharge instructions and disposition.
[2018-03-31 12:33] LABS: ANISOCYTOSIS SLIGHT; LYMPHOCYTE 7 % (20-40); MONOCYTE 5 % (0-10); NEUTROPHIL 88 % (50-75); PLATELET ESTIMATE NORMAL (NORMAL); TOTAL CELLS COUNTED 100
[2018-03-31 13:32] VITALS: BP 116/66; PULSE 72; TEMP 99.3
--- NOTE | 2018-03-31 16:57 | RAD ---
Date of service: 03/31/2018 HISTORY: Sepsis Patient COMPARISON: No prior. FINDINGS: LUNGS: Poor inspiration with low lung volumes, crowded bronchovascular markings and mild bibasilar atelectasis. Questionable mild pulmonary venous congestive changes.. PLEURA: No significant pleural effusion identified, no pneumothorax apparent. CARDIOVASCULAR: Mild aortic atherosclerotic calcification present. Cardiomegaly. Sternotomy wires again noted.. OSSEOUS STRUCTURES: Degenerative osteoarthritis both shoulder girdles. VISUALIZED UPPER ABDOMEN: Normal. OTHER FINDINGS: None. IMPRESSION: Poor inspiration with low lung volumes, crowded bronchovascular markings and mild bibasilar atelectasis. Questionable mild pulmonary venous congestive changes.. PLEURA:
--- NOTE | 2018-03-31 17:31 | RAD ---
Date of service: 03/31/2018 HISTORY: vomiting COMPARISON: None available. FINDINGS: BOWEL: No gross free intraperitoneal air no evidence of acute mechanical bowel obstruction. BONES: Moderate multilevel degenerative spondylosis. There appears to be left lateral stature loss L2 segment with significant dextroscoliosis. OTHER FINDINGS: None. IMPRESSION: No free intraperitoneal air. No evidence of acute mechanical bowel obstruction. Significant dextroscoliosis.
== END 2018-03-31 14:37 | disposition home or self-care (01) ==
LOC: C.ER 10:26
DX: B34.9 Viral infection, unspecified (principal); R11.10 Vomiting, unspecified
CPT/HCPCS: 71045; 74018; 80053; 81001; 85025; 87086; 96374; 99285; J2405

== ENCOUNTER 2018-05-06 14:46 | Inpatient (IN) | payer MEDICARE, MEDICAID ==
[2018-05-06 14:47] VITALS: BMI 27.0
[2018-05-06] MEDS ORDERED: Albuterol-Ipratrop 3 mg / 0.5 (3 ml) UD ONE ×2 (15:01→15:34)
[2018-05-06 15:21] LABS: BASO # 0.1 K/uL (0.0-0.2); EOS # 0.4 K/uL (0.0-0.7); EOS % 5.6 % (0.0-4.0); HEMOGLOBIN 12.4 g/dL (11.0-16.0); LYMPH # 2.4 K/uL (1.0-4.3); LYMPH % 30.3 % (20.0-40.0); MEAN CORPUSCULAR HEMOGLOBIN 29.6 pg (27.0-31.0); MEAN CORPUSCULAR HGB CONC 32.6 g/dL (33.0-37.0); MEAN PLATELET VOLUME 7.8 fL (7.2-11.7); MONO # 0.5 K/uL (0.0-0.8); MONO % 6.7 % (0.0-10.0); NEUT # 4.4 K/uL (1.8-7.0); NEUT % 56.4 % (50.0-75.0); RBC 4.17 Mil/uL (3.80-5.20); RED CELL DISTRIBUTION WIDTH 14.7 % (11.5-14.5); WHITE BLOOD COUNT 7.8 K/uL (4.8-10.8)
[2018-05-06] MEDS ORDERED: Albuterol-Ipratrop 3 mg / 0.5 (3 ml) UD INH STA ×3 (15:24→15:26)
[2018-05-06] MEDS ORDERED: MethylPREDNISolone 40 mg Vial IVP STA (15:26)
[2018-05-06 15:30] LABS: PROTHROMBIN TIME 10.8 SECONDS (9.7-12.2)
[2018-05-06] MEDS ORDERED: Magnesium Sulfate 1 gm in D5W 1 GM/100 ML BAG IVPB ONE ×2 (15:34→15:59)
[2018-05-06 15:40] LABS: ALB/GLOB RATIO 1.4 (1.0-2.1); ALBUMIN 4.6 g/dL (3.5-5.0); ALT/SGPT 32 U/L (9-52); AST/SGOT 54 U/L (14-36); BLOOD UREA NITROGEN 21 mg/dL (7-17); CALCIUM 8.8 mg/dl (8.6-10.4); GFR NON-AFRICAN AMERICAN > 60
[2018-05-06] MEDS: Magnesium Sulfate 1 gm in D5W 1 GM/100 ML BAG IVPB SCH ×2 (15:42→16:02)
[2018-05-06 15:48] LABS: B-TYPE NATRIURETIC PEPTIDE 255 pg/mL (0-900)
--- NOTE | 2018-05-06 17:36 | C.PDOC ---
History Of Present Illness 78 year old female presents to ED with complaint of cough,congestion, and weakness over the past few days. Patient states her cough is productive with white-colored phlegm. Patient denies any recent travel and sick contacts. She states she saw her PMD last week for these symptoms and was given a steroid injection. Patient denies fever, nausea, vomiting, and chest pain. Time Seen by Provider: 05/06/18 15:12 Chief Complaint (Nursing): Shortness Of Breath History Per: Patient History/Exam Limitations: no limitations Onset/Duration Of Symptoms: Days Current Symptoms Are (Timing): Still Present Associated Symptoms: Productive Cough, Other (congestion, weakness). denies: Fever, Chills, Chest Pain Past Medical History Reviewed: Historical Data, Nursing Documentation, Vital Signs Vital Signs: Last Vital Signs Temp Pulse 85 05/06/18 17:13 Resp 18 05/06/18 17:13 BP 164/73 H 05/06/18 17:13 Pulse Ox 96 05/06/18 17:13 - Medical History PMH: Arthritis, Asthma, Diabetes, Diverticulitis, Fractures (RIGHT HAND-CASTED ONLY), Gall Bladder Disease, HTN, Hypercholesterolemia, Kidney Stones, Pneu monia, Chronic Kidney Disease Surgical History: Cholecystectomy, Endoscopy - [facility] Procedures EXCISION OF DESCENDING COLON, ENDO, DIAGN (11/28/16) EXCISION OF STOMACH, PYLORUS, ENDO, DIAGN (11/28/16) FLUOROSCOPY OF GALLBLADDER & BILE DUCT USING L OSM CONTRAST (02/01/16) RESECTION OF GALLBLADDER, PERCUTANEOUS ENDOSCOPIC APPROACH (02/01/16) SUPPLEMENT ABDOMINAL WALL WITH SYNTH SUB, OPEN APPROACH (08/31/17) Family History: States: Unknown Family Hx - Social History Hx Tobacco Use: No Hx Alcohol Use: No Hx Substance Use: No - Immunization History Hx Tetanus Toxoid Vaccination: No Hx Influenza Vaccination: No Hx Pneumococcal Vaccination: No Review Of Systems Constitutional: Positive for: Weakness. Negative for: Fever, Chills ENT: Positive for: Nose Congestion Cardiovascular: Negative for: Chest Pain, Palpitations Respiratory: Positive for: Cough, Sputum (white in nature). Negative for: Shortness of Breath Gastrointestinal: Negative for: Nausea, Vomiting Neurological: Negative for: Weakness, Numbness, Dizziness Physical Exam - Physical Exam Appears: Non-toxic, Other (mild distress) Skin: Normal Color, Warm, Dry Head: Atraumatic, Normacephalic Neck: Normal ROM, Supple Chest: Symmetrical, No Deformity Cardiovascular: Murmur (systolic) Respiratory: Rhonchi (bilaterally), Wheezing (expiratory) Gastrointestinal/Abdominal: Soft, No Tenderness Extremity: Normal ROM Neurological/Psych: Oriented x3, Normal Speech, Normal Cognition ED Course And Treatment - Laboratory Results Result Diagrams: 05/06/18 15:15 05/06/18 15:15 Lab Results: PT 10.8 SECONDS (9.7-12.2) 05/06/18 15:15 INR 1.0 05/06/18 15:15 APTT 32 SECONDS (21-34) 05/06/18 15:15 Troponin I < 0.0120 ng/mL (0.00-0.120) 05/06/18 15:15 NT-Pro-B Natriuret Pep 255 pg/mL (0-900) 05/06/18 15:15 Total Bilirubin 1.0 mg/dL (0.2-1.3) 05/06/18 15:15 AST 54 U/L (14-36) H 05/06/18 15:15 ALT 32 U/L (9-52) 05/06/18 15:15 Alkaline Phosphatase 66 U/L (38-126) 05/06/18 15:15 Total Protein 7.9 g/dL (6.3-8.3) 05/06/18 15:15 Albumin 4.6 g/dL (3.5-5.0) 05/06/18 15:15 Globulin 3.3 gm/dL (2.2-3.9) 05/06/18 15:15 Albumin/Globulin Ratio 1.4 (1.0-2.1) 05/06/18 15:15 ECG: Interpreted By Me, Viewed By Me ECG Rhythm: Sinus Rhythm ECG Interpretation: Normal Rate From EC O2 Sat by Pulse Oximetry: 96 (RA) Progress Note: Reviewed case with Dr. Banerjee and agreed to have patient admitted to his service in the general medical floor. Medical Decision Making Medical Decision Making: Impression: 78 year old with cough, congestion, and weakness Plan: EKG and CXR ordered for patient Labs ordered with flu a/b and blood culture for patient Patient given Duoneb INH, Magnesium Sulfate IVPB, and solu-medrol IVP Disposition - Disposition Disposition: HOSPITALIZED Disposition Time: 16:30 Condition: STABLE - Clinical Impression Clinical Impression: Asthma exacerbation - Scribe Statement The provider has reviewed the documentation as recorded by the Scribe (Oksana Rascon) All medical record entries made by the Scribe were at my direction and personally dictated by me. I have reviewed the chart and agree that the record accurately reflects my personal performance of the history, physical exam, medical decision making, and the department course for this patient. I have also personally directed, reviewed, and agree with the discharge instructions and disposition.
[2018-05-06 17:47] VITALS: RESP 20
--- NOTE | 2018-05-06 18:28 | RAD ---
Date of service: 05/06/2018 HISTORY: SOB COMPARISON: No prior. FINDINGS: LUNGS: No active pulmonary disease. PLEURA: No significant pleural effusion identified, no pneumothorax apparent. CARDIOVASCULAR: No aortic atherosclerotic calcification present. Normal cardiac size. Sternotomy wires. Probable CABG. OSSEOUS STRUCTURES: No significant abnormalities. VISUALIZED UPPER ABDOMEN: Normal. OTHER FINDINGS: None. IMPRESSION: No active disease.
--- NOTE | 2018-05-06 19:33 | CP.PCM.HP ---
History of Present Illness - History of Present Illness History of Present Illness: 78-year-old female who comes to the [facility] emergency room complaining of generalized malaise, cough and continuous wheezing for the past 4 days. patient denies fever or headaches. Patient was given IV steroids and re spiratory treatments in the ER with improvement. Patient was advise admission for further treatment Present on Admission - Present on Admission Any Indicators Present on Admission: No History of DVT/PE: No History of Uncontrolled Diabetes: No Urinary Catheter: No Decubitus Ulcer Present: No History Surgical Site Infection Following: None Review of Systems - Constitutional Constitutional: Fatigue - EENT Nose/Mouth/Throat: Dry Mouth - Respiratory Respiratory: Wheezing - Gastrointestinal Gastrointestinal: Heartburn - Reproductive: Female Reproductive:Female: Post Menopausal - Integumentary Integumentary: Dry Skin - Neurological Neurological: Vertigo Past Patient History - Infectious Disease Hx of Infectious Diseases: None - Tetanus Immunizations Tetanus Immunization: Up to Date - Past Medical History & Family History Past Medical History?: Yes - Past Social History Smoking Status: Never Smoked Chewing Tobacco Use: No Cigar Use: No Alcohol: None Drugs: Denies Home Situation {Lives}: Alone - CARDIAC Hx Cardiac Disorders: Yes Hx Heart Murmur: Yes Hx Hypercholesterolemia: Yes Hx Hypertension: Yes - PULMONARY Hx Asthma: Yes Hx Pneumonia: Yes - NEUROLOGICAL Hx Neurological Disorder: Yes Hx Dizziness: Yes Hx Vertigo: Yes - HEENT Hx HEENT Problems: Yes Hx Cataracts: Yes - RENAL Hx Chronic Kidney Disease: Yes Hx Kidney Stones: Yes - ENDOCRINE/METABOLIC Hx Diabetes Mellitus Type 2: Yes - INTEGUMENTARY Hx Dermatological Problems: No - MUSCULOSKELETAL/RHEUMATOLOGICAL Hx Arthritis: Yes Hx Fractures: Yes (RIGHT HAND-CASTED ONLY) Hx Osteoarthritis: Yes - GASTROINTESTINAL Hx Diverticulitis: Yes Hx Gall Bladder Disease: Yes Hx Gastritis: Yes - GENITOURINARY/GYNECOLOGICAL Hx Genitourinary Disorders: No Hx Urinary Tract Infection: Yes - PSYCHIATRIC Hx Substance Use: No - SURGICAL HISTORY Hx Cholecystectomy: Yes - ANESTHESIA Hx Anesthesia: Yes Hx Anesthesia Reactions: No Hx Malignant Hyperthermia: No Meds Allergies/Adverse Reactions: Allergies Allergy/AdvReac Type Severity Reaction Status Date / Time Penicillins Allergy Severe ANAPHYLAXIS Verified 03/31/18 10:39 aspirin Allergy Intermediate ITCHING Verified 03/31/18 10:39 sulfamethoxazole Allergy Intermediate RASH Verified 03/31/18 10:39 [From Bactrim] trimethoprim [From Bactrim] Allergy Intermediate RASH Verified 03/31/18 10:39 Physical Exam - Constitutional Appears: Chronically Ill - Head Exam Head Exam: NORMAL INSPECTION - Eye Exam Eye Exam: Normal appearance Pupil Exam: NORMAL ACCOMODATION - ENT Exam ENT Exam: Normal Exam - Neck Exam Neck exam: Positive for: Normal Inspection - Respiratory Exam Respiratory Exam: Wheezes - Cardiovascular Exam Cardiovascular Exam: Systolic Murmur - GI/Abdominal Exam GI & Abdominal Exam: Normal Bowel Sounds - Rectal Exam Rectal Exam: Deferred - Exam External exam: NORMAL EXTERNAL EXAM - Extremities Exam Extremities exam: Positive for: normal inspection - Back Exam Back exam: NORMAL INSPECTION - Neurological Exam Neurological exam: Oriented x3 - Psychiatric Exam Psychiatric exam: Normal Affect - Skin Skin Exam: Dry Results - Vital Signs Recent Vital Signs: Last Vital Signs Temp 97.9 F 05/06/18 17:46 Pulse 90 05/06/18 17:46 Resp 20 05/06/18 17:46 BP 174/73 H 05/06/18 17:46 Pulse Ox 96 05/06/18 18:48 - Labs Result Diagrams: 05/06/18 15:15 05/06/18 15:15 Labs: Laboratory Results - last 24 hr 05/06/18 05/06/18 05/06/18 15:15 15:15 15:15 WBC 7.8 RBC 4.17 Hgb 12.4 Hct 37.9 MCV 91.0 MCH 29.6 MCHC 32.6 L RDW 14.7 H Plt Count 191 MPV 7.8 Neut % (Auto) 56.4 Lymph % (Auto) 30.3 [place] % (Auto) 6.7 Eos % (Auto) 5.6 H Baso % (Auto) 1.0 Neut # (Auto) 4.4 Lymph # (Auto) 2.4 [place] # (Auto) 0.5 Eos # (Auto) 0.4 Baso # (Auto) 0.1 PT 10.8 INR 1.0 APTT 32 Sodium 136 Potassium 4.4 Chloride 102 Carbon Dioxide 28 Anion Gap 11 BUN 21 H Creatinine 0.8 Est GFR ( Amer) > 60 Est GFR (Non-Af Amer) > 60 Random Glucose 95 D Calcium 8.8 Total Bilirubin 1.0 AST 54 H ALT 32 Alkaline Phosphatase 66 Troponin I NT-Pro-B Natriuret Pep 255 Total Protein 7.9 Albumin 4.6 Globulin 3.3 Albumin/Globulin Ratio 1.4 Influenza Typ A,B (EIA) 05/06/18 05/06/18 15:15 15:31 WBC RBC Hgb Hct MCV MCH MCHC RDW Plt Count MPV Neut % (Auto) Lymph % (Auto) [place] % (Auto) Eos % (Auto) Baso % (Auto) Neut # (Auto) Lymph # (Auto) [place] # (Auto) Eos # (Auto) Baso # (Auto) PT INR APTT Sodium Potassium Chloride Carbon Dioxide Anion Gap BUN Creatinine Est GFR ( Amer) Est GFR (Non-Af Amer) Random Glucose Calcium Total Bilirubin AST ALT Alkaline Phosphatase Troponin I < 0.0120 NT-Pro-B Natriuret Pep Total Protein Albumin Globulin Albumin/Globulin Ratio Influenza Typ A,B (EIA) Negative for flu a/b Assessment & Plan (1) Asthma exacerbation Status: Acute (2) Arteriosclerotic heart disease Status: Acute Priority: Medium (3) Diverticulosis Status: Acute (4) Non-insulin dependent type 2 diabetes mellitus Status: Chronic (5) Degenerative joint disease Status: Acute Priority: Medium
[2018-05-06] MEDS: Albuterol 0.083% Inhal Sol (2.5 mg/3 mL) UD INH SCH (20:49)
[2018-05-06] MEDS: MethylPREDNISolone 40 mg Vial IV SCH (21:31)
[2018-05-07] MEDS: Albuterol 0.083% Inhal Sol (2.5 mg/3 mL) UD INH SCH ×3 (01:19→19:55)
[2018-05-07 07:33] LABS: HEMOGLOBIN 11.9 g/dL (11.0-16.0); LYMPH # 0.9 K/uL (1.0-4.3); LYMPH % 14.4 % (20.0-40.0); MEAN CELL VOLUME 90.8 fL (81.0-99.0); MEAN CORPUSCULAR HEMOGLOBIN 30.5 pg (27.0-31.0); MEAN CORPUSCULAR HGB CONC 33.6 g/dL (33.0-37.0); MEAN PLATELET VOLUME 8.2 fL (7.2-11.7); MONO # 0.1 K/uL (0.0-0.8); MONO % 2.4 % (0.0-10.0); NEUT % 83.2 % (50.0-75.0); RBC 3.89 Mil/uL (3.80-5.20); RED CELL DISTRIBUTION WIDTH 14.1 % (11.5-14.5)
[2018-05-07] MEDS: Enoxaparin 40 mg Syringe SC SCH (09:24)
[2018-05-07] MEDS: MethylPREDNISolone 40 mg Vial IV SCH ×2 (09:25→21:21)
[2018-05-07] MEDS: guaiFENesin 100 mg/5 ml Syrup UD PO PRN ×2 (13:26→23:48)
[2018-05-08] MEDS: Albuterol 0.083% Inhal Sol (2.5 mg/3 mL) UD INH SCH ×3 (01:04→13:45)
--- NOTE | 2018-05-08 01:47 | CON ---
DATE: 05/07/2018 HISTORY OF PRESENT ILLNESS: This 78-year-old lady with a past history of arthritis, asthma, diabetes mellitus, hypertension, abdominal surgery, now admitted with cough, wheezing, generalized ache, malaise with no fever or chills and no chest pain. There was no hemoptysis or hematemesis and no seizures. She has been a nonsmoker and as stated allergy to penicillin, aspirin and Bactrim. She has not used habit forming drugs. PAST MEDICAL HISTORY: As stated above. FAMILY HISTORY: Unremarkable. SYSTEMIC HISTORY: As reported above is of generalized aching, shortness of breath and cough. No seizures, no urinary symptoms, no vomiting, no falls, no abdominal pain. PHYSICAL EXAMINATION: GENERAL: She is alert, oriented, somewhat hard of hearing. VITAL SIGNS: Afebrile with blood pressure 128/72, pulse 95, respirations 20 and hemoglobin oxygen saturation of 96%. NECK: Supple. There is no lymphadenopathy. HEENT: Unremarkable. There is no thyromegaly. HEART: Regular, no gallop rhythm. LUNGS: Diminished breath sounds over the lung bases. Rhonchi present. ABDOMEN: Soft. EXTREMITIES: Legs, no edema. Deep tendon reflexes unremarkable. Motor power, there is no rigidity. Examination of the legs shows arthritis of knees. LABORATORY DATA: White count is 7800, hemoglobin 12.4, platelet count 191,000. PTT, PT and INR within normal limits. Serum sodium 136, potassium 4.4, BUN 21, creatinine 0.8. Glucose initially was, random glucose of 95, subsequently now is 203. Troponin is less than 0.012. ProBNP 255. Flu type A and B, negative for flu A and B. Chest x-ray shows hyperinflation and signs of previous chest surgery with wires which were seen on x-ray of the chest. IMPRESSION: Respiratory insufficiency, exacerbation of asthma and chronic obstructive pulmonary disease, history of hypertension, coronary artery disease, arthritis, diabetes mellitus, previous abdominal surgery. PLAN: As ordered, continue with bronchodilators and vasodilators, oxygen therapy and control of diabetes mellitus. Moustapha Mayorga MD [facility] # [id number]
[2018-05-08 07:49] VITALS: BP 124/70; PULSE 82; TEMP 97.9; O2SAT 95
[2018-05-08] MEDS: MethylPREDNISolone 40 mg Vial IV SCH (09:51)
[2018-05-08] MEDS: Enoxaparin 40 mg Syringe SC SCH (09:53)
[2018-05-08] MEDS: guaiFENesin 100 mg/5 ml Syrup UD PO PRN (09:54)
[2018-05-08] MEDS ORDERED: (Novolin R) Insulin Human Regular 100 units/ml vial SC ONE (12:15)
--- NOTE | 2018-05-08 17:30 | CP.PCM.PN ---
Subjective - Date & Time of Evaluation Date of Evaluation: 05/08/18 Time of Evaluation: 11:00 - Subjective Subjective: alert, awake, no sob or chest pains, NAD. Objective - Vital Signs/Intake and Output Vital Signs (last 24 hours): Temp Pulse Resp BP Pulse Ox 97.9 F 82 20 124/70 95 05/08/18 07:48 05/08/18 07:48 05/08/18 07:48 05/08/18 07:48 05/08/18 07:48 Intake and Output: 05/08/18 05/08/18 06:59 18:59 Intake Total 550 Balance 550 - Labs Labs: 05/07/18 07:10 05/07/18 07:10 PT 10.8 SECONDS (9.7-12.2) 05/06/18 15:15 INR 1.0 05/06/18 15:15 APTT 32 SECONDS (21-34) 05/06/18 15:15 Assessment and Plan - Assessment and Plan (Free Text) Assessment: 78 year old female admitted with asthma exacerbation, seen and examined. Alert and oriented x3, denies sob or chest pains. Has minimal wheezing on auscultation at the bases. Seen by DR Banerjee, plan to discharge home on home meds. Advised to watch the sugar levels and follow up in the office in 1 week.
--- NOTE | 2018-05-08 19:58 | PN ---
DATE: 05/08/2018 SUBJECTIVE: The patient is alert and oriented. There is no chest pain, Dyspnea has subsided. PHYSICAL EXAMINATION: GENERAL: She is not in acute distress. VITAL SIGNS: Afebrile, blood pressure 124/70, pulse 82, respirations 20, and hemoglobin oxygen saturation of 95%. HEART: Regular, no gallop rhythm. LUNGS: Diminished breath sounds over the lung bases, rhonchi decreased. ABDOMEN: Soft. EXTREMITIES: No edema. LABORATORY DATA: Chest x-ray shows there is no active pulmonary disease, cardiac size is normal. Prior sites of thoracic surgery which is sternotomy seen on chest x-ray. IMPRESSION: Respiratory insufficiency, asthma, chronic obstructive pulmonary disease, coronary artery disease, hypertension, arthritis. PLAN: To continue with the bronchodilators, vasodilators, and analgesics. Moustapha Mayorga MD
--- NOTE | 2018-05-08 22:24 | CP.PCM.DIS ---
Provider - Provider Date of Admission: 05/06/18 16:52 Attending physician: Danny Banerjee MD Consults: 05/06/18 16:52 Pulmonology Consult Routine Comment: Consulting Provider: Moustapha Mayorga Consulting Physician: Moustapha Mayorga Reason for Consult: asthma exacerbation Time Spent in preparation of Discharge (in minutes): 24 Diagnosis - Discharge Diagnosis (1) Asthma exacerbation Status: Acute (2) Arteriosclerotic heart disease Status: Acute Priority: Medium (3) Diverticulosis Status: Acute (4) Non-insulin dependent type 2 diabetes mellitus Status: Chronic (5) Degenerative joint disease Status: Acute Priority: Medium Hospital Course - Lab Results Lab Results: Micro Results 05/06/18 15:40 Blood Blood Culture - Preliminary NO GROWTH AFTER 48 HOURS 05/06/18 15:05 Blood Blood Culture - Preliminary NO GROWTH AFTER 48 HOURS 05/07/18 11:45 Sputum Gram Stain - Final Most Recent Lab Values WBC 6.0 K/uL (4.8-10.8) 05/07/18 07:10 RBC 3.89 Mil/uL (3.80-5.20) 05/07/18 07:10 Hgb 11.9 g/dL (11.0-16.0) 05/07/18 07:10 Hct 35.3 % (34.0-47.0) 05/07/18 07:10 MCV 90.8 fL (81.0-99.0) 05/07/18 07:10 MCH 30.5 pg (27.0-31.0) 05/07/18 07:10 MCHC 33.6 g/dL (33.0-37.0) 05/07/18 07:10 RDW 14.1 % (11.5-14.5) 05/07/18 07:10 Plt Count 187 K/uL (130-400) 05/07/18 07:10 MPV 8.2 fL (7.2-11.7) 05/07/18 07:10 Neut % (Auto) 83.2 % (50.0-75.0) H 05/07/18 07:10 Lymph % (Auto) 14.4 % (20.0-40.0) L 05/07/18 07:10 [place] % (Auto) 2.4 % (0.0-10.0) 05/07/18 07:10 Eos % (Auto) 0.0 % (0.0-4.0) 05/07/18 07:10 Baso % (Auto) 0.0 % (0.0-2.0) 05/07/18 07:10 Neut # (Auto) 5.0 K/uL (1.8-7.0) 05/07/18 07:10 Lymph # (Auto) 0.9 K/uL (1.0-4.3) L 05/07/18 07:10 [place] # (Auto) 0.1 K/uL (0.0-0.8) 05/07/18 07:10 Eos # (Auto) 0.0 K/uL (0.0-0.7) 05/07/18 07:10 Baso # (Auto) 0.0 K/uL (0.0-0.2) 05/07/18 07:10 PT 10.8 SECONDS (9.7-12.2) 05/06/18 15:15 INR 1.0 05/06/18 15:15 APTT 32 SECONDS (21-34) 05/06/18 15:15 Sodium 134 mmol/L (132-148) 05/07/18 07:10 Potassium 4.1 mmol/L (3.6-5.2) 05/07/18 07:10 Chloride 101 mmol/L (98-107) 05/07/18 07:10 Carbon Dioxide 28 mmol/L (22-30) 05/07/18 07:10 Anion Gap 11 (10-20) 05/06/18 15:15 BUN 23 mg/dL (7-17) H 05/07/18 07:10 Creatinine 0.8 mg/dL (0.7-1.2) 05/06/18 15:15 Est GFR ( Amer) > 60 05/06/18 15:15 Est GFR (Non-Af Amer) > 60 05/06/18 15:15 POC Glucose (mg/dL) 389 mg/dL (65-110) H 05/08/18 11:03 Random Glucose 95 mg/dL (65-105) D 05/06/18 15:15 Calcium 8.8 mg/dl (8.6-10.4) 05/06/18 15:15 Total Bilirubin 1.0 mg/dL (0.2-1.3) 05/06/18 15:15 AST 54 U/L (14-36) H 05/06/18 15:15 ALT 32 U/L (9-52) 05/06/18 15:15 Alkaline Phosphatase 66 U/L (38-126) 05/06/18 15:15 Troponin I < 0.0120 ng/mL (0.00-0.120) 05/06/18 15:15 NT-Pro-B Natriuret Pep 255 pg/mL (0-900) 05/06/18 15:15 Total Protein 7.9 g/dL (6.3-8.3) 05/06/18 15:15 Albumin 4.6 g/dL (3.5-5.0) 05/06/18 15:15 Globulin 3.3 gm/dL (2.2-3.9) 05/06/18 15:15 Albumin/Globulin Ratio 1.4 (1.0-2.1) 05/06/18 15:15 Influenza Typ A,B (EIA) Negative for flu a/b (NEGATIVE) 05/06/18 15:31 Discharge Exam - Head Exam Head Exam: NORMAL INSPECTION - Eye Exam Eye Exam: Normal appearance Pupil Exam: NORMAL ACCOMODATION - ENT Exam ENT Exam: Normal Exam - Neck Exam Neck exam: Normal Inspection - Respiratory Exam Respiratory Exam: Wheezes - Cardiovascular Exam Cardiovascular Exam: REGULAR RHYTHM - GI/Abdominal Exam GI & Abdominal Exam: Normal Bowel Sounds - Rectal Exam Rectal Exam: Deferred - Exam External exam: NORMAL EXTERNAL EXAM - Extremities Exam Extremities exam: pedal pulses present - Back Exam Back exam: NORMAL INSPECTION - Neurological Exam Neurological exam: Oriented x3 - Psychiatric Exam Psychiatric exam: Normal Affect - Skin Skin Exam: Dry Discharge Plan - Discharge Medications Prescriptions: Loratadine [Claritin] 10 mg PO DAILY #30 tab - Follow Up Plan Condition: STABLE Disposition: HOME/ ROUTINE Instructions: Asthma, Adult (DC), Loratadine Referrals: Danny Banerjee MD [Staff Provider] -
[2018-05-09] MEDS ORDERED: Influenza Vaccine 60 mcg/0.5 mL SYR (4YR UP) IM ONE (10:00)
== END 2018-05-08 16:22 | disposition home or self-care (01) | DRG 203 ==
LOC: C.ER 14:46 → C.9E 16:52 → C.3T 17:05
PROVIDERS: ADMIT Internal Medicine; ATTEND Internal Medicine
DX: J45.901 Unspecified asthma with (acute) exacerbation (principal); I25.10 Atherosclerotic heart disease of native coronary artery without angina pectoris; I12.9 Hypertensive chronic kidney disease with stage 1 through stage 4 chronic kidney disease, or unspecified chronic kidney disease; K57.90 Diverticulosis of intestine, part unspecified, without perforation or abscess without bleeding; N18.9 Chronic kidney disease, unspecified; Z79.84 Long term (current) use of oral hypoglycemic drugs; Z88.0 Allergy status to penicillin; E78.00 Pure hypercholesterolemia, unspecified; E11.22 Type 2 diabetes mellitus with diabetic chronic kidney disease; J44.9 Chronic obstructive pulmonary disease, unspecified; M19.90 Unspecified osteoarthritis, unspecified site

== ENCOUNTER 2018-05-19 13:28 | Emergency (ER) | payer MEDICARE, MEDICAID ==
[2018-05-19 13:28] VITALS: BMI 27.0
[2018-05-19 13:38] VITALS: O2SAT 94
[2018-05-19] MEDS ORDERED: Albuterol-Ipratrop 3 mg / 0.5 (3 ml) UD INH STA (14:02)
[2018-05-19] MEDS ORDERED: Albuterol-Ipratrop 3 mg / 0.5 (3 ml) UD ONE ×2 (14:02→14:24)
[2018-05-19 14:19] LABS: BASO % 0.1 % (0.0-2.0); EOS # 0.1 K/uL (0.0-0.7); EOS % 0.9 % (0.0-4.0); HEMOGLOBIN 13.6 g/dL (11.0-16.0); LYMPH # 0.6 K/uL (1.0-4.3); LYMPH % 4.8 % (20.0-40.0); MEAN CELL VOLUME 90.7 fL (81.0-99.0); MEAN CORPUSCULAR HEMOGLOBIN 29.5 pg (27.0-31.0); MEAN CORPUSCULAR HGB CONC 32.5 g/dL (33.0-37.0); MONO # 0.4 K/uL (0.0-0.8); MONO % 3.6 % (0.0-10.0); NEUT # 11.4 K/uL (1.8-7.0); NEUT % 90.6 % (50.0-75.0); PLATELET COUNT 180 K/uL (130-400); RBC 4.61 Mil/uL (3.80-5.20); RED CELL DISTRIBUTION WIDTH 14.8 % (11.5-14.5); WHITE BLOOD COUNT 12.6 K/uL (4.8-10.8)
[2018-05-19 14:33] LABS: ALB/GLOB RATIO 1.4 (1.0-2.1); ALBUMIN 4.3 g/dL (3.5-5.0); ALT/SGPT 35 U/L (9-52); AST/SGOT 42 U/L (14-36); BLOOD UREA NITROGEN 21 mg/dL (7-17); CALCIUM 8.6 mg/dl (8.6-10.4); GFR NON-AFRICAN AMERICAN > 60
--- NOTE | 2018-05-19 14:40 | C.PDOC ---
History Of Present Illness 78 year old female presents with asthma exacerbation that started last night. Pt reports having liquid stools x3. Ate fish for dinner last night. Denies fever, chills, chest pain, and any other associated symptoms. Time Seen by Provider: 05/19/18 13:44 Chief Complaint (Nursing): Flu-like Symptoms History Per: Patient History/Exam Limitations: no limitations Onset/Duration Of Symptoms: Days (x1) Current Symptoms Are (Timing): Still Present Recent travel outside of the [place]: No Past Medical History Reviewed: Historical Data, Nursing Documentation, Vital Signs Vital Signs: Last Vital Signs Temp 98.6 F 05/19/18 13:34 Pulse 93 H 05/19/18 13:45 Resp 18 05/19/18 13:51 BP 129/69 05/19/18 13:45 Pulse Ox 94 L 05/19/18 13:51 - Medical History PMH: Arthritis, Asthma, Diabetes, Diverticulitis, Fractures (RIGHT HAND-CASTED ONLY), Gastritis, Gall Bladder Disease, HTN, Hypercholesterolemia, Kidney Stones, Pneumonia, Chronic Kidney Disease Surgical History: Cholecystectomy, Endoscopy - [facility] Procedures EXCISION OF DESCENDING COLON, ENDO, DIAGN (11/28/16) EXCISION OF STOMACH, PYLORUS, ENDO, DIAGN (11/28/16) FLUOROSCOPY OF GALLBLADDER & BILE DUCT USING L OSM CONTRAST (02/01/16) RESECTION OF GALLBLADDER, PERCUTANEOUS ENDOSCOPIC APPROACH (02/01/16) SUPPLEMENT ABDOMINAL WALL WITH SYNTH SUB, OPEN APPROACH (08/31/17) Family History: States: Unknown Family Hx - Social History Hx Tobacco Use: No Hx Alcohol Use: No Hx Substance Use: No - Immunization History Hx Tetanus Toxoid Vaccination: No Hx Influenza Vaccination: No Hx Pneumococcal Vaccination: No Review Of Systems Constitutional: Negative for: Fever, Chills Cardiovascular: Negative for: Chest Pain Respiratory: Positive for: Other (asthma exacerbation. ) Physical Exam - Physical Exam Appears: Non-toxic, No Acute Distress Skin: Warm, Dry Head: Atraumatic, Normacephalic Eye(s): bilateral: Normal Inspection Oral Mucosa: Moist Neck: Normal ROM, Supple Chest: Symmetrical, No Deformity Cardiovascular: Rhythm Regular, No Murmur Respiratory: No Rales, No Rhonchi, Wheezing (expiratory.) Gastrointestinal/Abdominal: Normal Exam, Soft, No Tenderness Extremity: Bilateral: Atraumatic, Normal Color And Temperature, Normal ROM Neurological/Psych: Oriented x3, Normal Speech, Normal Cognition ED Course And Treatment - Laboratory Results Result Diagrams: 05/19/18 14:15 05/19/18 14:15 Lab Results: Total Bilirubin 1.5 mg/dL (0.2-1.3) H 05/19/18 14:15 AST 42 U/L (14-36) H D 05/19/18 14:15 ALT 35 U/L (9-52) 05/19/18 14:15 Alkaline Phosphatase 70 U/L (38-126) 05/19/18 14:15 Total Protein 7.4 g/dL (6.3-8.3) 05/19/18 14:15 Albumin 4.3 g/dL (3.5-5.0) 05/19/18 14:15 Globulin 3.1 gm/dL (2.2-3.9) 05/19/18 14:15 Albumin/Globulin Ratio 1.4 (1.0-2.1) 05/19/18 14:15 Lab Interpretation: Abnormal ECG: Interpreted By Ok ECG Rhythm: Sinus Rhythm ECG Interpretation: Normal Rate From EC O2 Sat by Pulse Oximetry: 94 Pulse Ox Interpretation: Abnormal - Radiology CXR: Interpreted by Ok CXR Interpretation: Yes: No Acute Disease Reevaluation Time: 16:27 Reassessment Condition: Improved - Physician Consult Information Outcome Of Conversation: 1600: d/w Dr. Banerjee- PMD, ok to d/c home w opt f/u Monday PRN Medical Decision Making Medical Decision Making: Initial plan: -EKG -CXR -Blood sent. -Duoneb -Solu-medrol -Influenza A B -Urinalysis Progress/Update: 3:55pm : Spoke with Dr. Banerjee, results discussed. Will evaluate pt as outpatient. Pt home stable for discharge home. Pt advised to follow-up as outpatient. baseline asthma mild diarrhea low susp of C-diff defer abx with leukocytosis prob viral diarrhea vs mild colitis 2 day f/u in office has sufficient nebs @ home. re-eval, belly benign, lungs more clear, wants d/c home will not stay for adm if offered Disposition Doctor Will See Patient In The: Office Counseled Patient/Family Regarding: Studies Performed, Diagnosis - Disposition Referrals: Danny Banerjee MD [Staff Provider] - Disposition: HOME/ ROUTINE Disposition Time: 16:29 Condition: GOOD Instructions: Diarrhea in Adolescents and Adults, Asthma, Adult (DC) Forms: [employer] (Tajik) Print Language: TURKISH - Clinical Impression Clinical Impression: Asthma, Diarrhea - Scribe Statement The provider has reviewed the documentation as recorded by the Scribe (Radha Ash) Provider Attestation: All medical record entries made by the Scribe were at my direction and personally dictated by me. I have reviewed the chart and agree that the record accurately reflects my personal performance of the history, physical exam, medical decision making, and the department course for this patient. I have also personally directed, reviewed, and agree with the discharge instructions and disposition.
[2018-05-19 14:42] LABS: B-TYPE NATRIURETIC PEPTIDE 389 pg/mL (0-900)
[2018-05-19 15:02] LABS: SQUAMOUS EPITHIAL < 1 /hpf (0-5); URINE BILIRUBIN NEGATIVE (NEGATIVE); URINE BLOOD NEGATIVE (NEGATIVE); URINE CLARITY Clear (Clear); URINE COLOR Yellow (YELLOW); URINE GLUCOSE (UA) NORMAL (Normal); URINE LEUKOCYTE ESTERASE NEG Leu/uL (Negative); URINE PROTEIN NEGATIVE (NEGATIVE); URINE UROBILINOGEN NORMAL mg/dL (0.2-1.0)
[2018-05-19 15:38] LABS: ANISOCYTOSIS SLIGHT; EOSINOPHIL 2 % (0-4); LYMPHOCYTE 5 % (20-40); MONOCYTE 5 % (0-10); NEUTROPHIL 88 % (50-75); PLATELET ESTIMATE NORMAL (NORMAL); TOTAL CELLS COUNTED 100
[2018-05-19 15:39] LABS: GIANT PLATELETS PRESENT; HYPOCHROMIC SLIGHT; LARGE PLATELETS PRESENT; POLYCHROMIC SLIGHT
--- NOTE | 2018-05-19 15:58 | RAD ---
Date of service: 05/19/2018 PROCEDURE: CHEST RADIOGRAPH, 1 VIEW HISTORY: SOB COMPARISON: Comparison is made with 05/06/2018 FINDINGS: LUNGS: Mild pulmonary vascular congestion is noted. Small opacities at the lung bases likely atelectasis. PLEURA: No pneumothorax or pleural fluid seen. CARDIOVASCULAR: No aortic atherosclerotic calcification present. Normal. OSSEOUS STRUCTURES: No significant abnormalities. VISUALIZED UPPER ABDOMEN: Normal. OTHER FINDINGS: None. IMPRESSION: Mild pulmonary vascular congestion and small bibasilar opacities likely atelectasis.
[2018-05-19 17:00] VITALS: BP 137/62; PULSE 95; RESP 17; TEMP 98.1
--- NOTE | 2018-05-22 21:13 | CARD ---
APPROVED REPORT Date of service: 05/19/2018 EKG Measurement Heart [id number] <Conclusion> Normal sinus rhythm Normal ECG
== END 2018-05-19 16:50 | disposition home or self-care (01) ==
LOC: C.ER 13:28
DX: J45.909 Unspecified asthma, uncomplicated (principal); R19.7 Diarrhea, unspecified; I12.9 Hypertensive chronic kidney disease with stage 1 through stage 4 chronic kidney disease, or unspecified chronic kidney disease; N18.9 Chronic kidney disease, unspecified; E78.00 Pure hypercholesterolemia, unspecified
CPT/HCPCS: 71045; 80053; 81001; 83880; 84484; 85025; 87804; 93005; 94640; 96374; 99285; J2930